=== PATIENT | male | born 1955 | race Caucasian/White ===

== ENCOUNTER 2022-07-15 12:07 | Emergency (ER) | payer OTHER, MEDICARE, SELFPAY ==
[2022-07-15 12:07] VITALS: BP 164/107; PULSE 77; RESP 18; TEMP 36.6; O2SAT 98
--- NOTE | 2022-07-15 12:10 | PC.NURSE ---
Dr. Koehler at bedside to obtain FAST, Fast exam negative per MD
--- NOTE | 2022-07-15 12:11 | ECG_ITS ---
APPROVED REPORT Exam: Resting ECG HR:81 bpm ECG Measurements Heart Rate 81 AXES OR 175 P 57 QRSd 101 QRS 14 QT 369 T -11 QTc 406 Conclusion SINUS RHYTHM WITH OCCASIONAL VENTRICULAR PREMATURE COMPLEXES MINIMAL VOLTAGE CRITERIA FOR LVH, CONSIDER NORMAL VARIANT [MEETS CRITERIA IN ONE OF: R(aVL), S(V1), R(V5), R(V5/V6)+S(V1)] INFERIOR MYOCARDIAL INFARCTION , OF INDETERMINATE AGE [40+ ms Q WAVE AND/OR ST/T ABNORMALITY IN II/aVF] ABNORMAL ECG UNCONFIRMED REPORT Electronically signed by : Travis Luu MD 07/17/2022 14:25:29
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
--- NOTE | 2022-07-15 12:20 | PC.NURSE ---
MD notified of pt's contrast allergy, pt states that he doesn't take contrast d/t his kidneys. MD states contrast okay for scans. pt notified and inagreeance.
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
[2022-07-15 12:30] LABS: Basophils % 0.6 % (0.1-2.0); Eosinophils # 0.2 K/mm3 (0.0-0.4); Eosinophils % 2.8 % (0.1-12.0); Hematocrit 42.5 % (42.0-52.0); Lymphocytes % 28.5 % (10-50); Mean Corpuscular Hemoglobin 29.6 pg (27.0-31.2); Mean Corpuscular Volume 89.9 fl (80-94); Mean Platelet Volume 9.1 fl (7.4-10.4); Monocytes # 0.5 K/mm3 (0.1-1.0); Neutrophils # 4.2 K/mm3 (1.8-7.8); Neutrophils % 61.1 % (37.0-80.0); Platelet Count 168 K/mm3 (142-424); Red Blood Count 4.73 M/mm3 (4.60-6.20); White Blood Count 6.9 K/mm3 (4.8-10.8)
[2022-07-15 12:42] LABS: Chloride 110 mmol/L (98-107); Sodium 139 mmol/L (136-145)
--- NOTE | 2022-07-15 12:43 | PC.NURSE ---
pt's pants, wallet, badge, shoes given to .
[2022-07-15 12:45] LABS: Alanine Aminotransferase 24 U/L (12-78); Albumin Level 3.9 g/dl (3.5-5.0); Albumin/Globulin Ratio 1.3 (1.1-1.8); Alkaline Phosphatase 60 U/L (38-126); Aspartate Amino Transferase 35 U/L (17-59); Bilirubin,Total 0.4 mg/dl (0.2-1.3); Blood Urea Nitrogen 23 mg/dl (9-20); Calcium 8.3 mg/dl (8.4-10.2); Carbon Dioxide 25 mmol/L (22.0-30.0); Creatinine Clearance Estimated 80 mL/min (50-200); Estimated Glomerular Filt Rate 47 ml/min (>60); GFR (African American) 57 ML/MIN (>60); Globulin 2.9 g/dL (1.3-3.2); Glucose 98 mg/dl (74-100); Total Protein,Serum 6.8 g/dl (6.3-8.2)
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
[2022-07-15 13:03] LABS: Troponin I < 0.01 ng/ml (0.00-0.034)
--- NOTE | 2022-07-15 13:20 | PC.NURSE ---
pt c/o right right eye pain, MD aware and eye kit at bedside.
[2022-07-15 13:22] VITALS: BP 157/106; PULSE 80; RESP 18; O2SAT 97
[2022-07-15 14:14] VITALS: BMI 33.9
--- NOTE | 2022-07-15 14:20 | PC.NURSE ---
rounded on patient and updated on POC.
[2022-07-15 14:34] VITALS: BP 156/100; PULSE 73; RESP 18; O2SAT 97
[2022-07-15 15:30] VITALS: BP 157/107; PULSE 87; RESP 18; O2SAT 97
--- NOTE | 2022-07-15 16:16 | XR_ITS ---
PROCEDURE INFORMATION: Exam: XR Right Knee Exam date and time: 07/15/2022 4:39 PM Age: 66 years old Clinical indication: Pain; Knee; Right; Additional info: Pain and swelling TECHNIQUE: Imaging protocol: Radiologic exam of the right knee. Views: 3 views. COMPARISON: No relevant prior studies available. FINDINGS: Bones/joints: No fractures, dislocations, or focal bone lesions. No joint effusion. Joint spaces are well preserved. Soft tissues: Prepatellar soft tissue swelling. No soft tissue gas or radiopaque foreign bodies. IMPRESSION: 1. Prepatellar soft tissue swelling about the right knee. 2. No fractures or dislocations in the right knee.
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
[2022-07-15 17:11] LABS: Troponin I < 0.01 ng/ml (0.00-0.034)
[2022-07-15 17:41] VITALS: BP 150/101; PULSE 82; RESP 18; TEMP 36.7; O2SAT 97
== END 2022-07-15 17:45 | disposition home or self-care (01) ==
PROVIDERS: Emergency Provider Emergency Medicine; PCP Family Medicine
DX: R51.9 Headache, unspecified (principal); S05.01XA Injury of conjunctiva and corneal abrasion without foreign body, right eye, initial encounter; V73.5XXA Driver of bus injured in collision with car, pick-up truck or van in traffic accident, initial encounter; Z79.01 Long term (current) use of anticoagulants
CPT/HCPCS: 36415; 70450; 71045; 71275; 72125; 72128; 72131; 72170; 73562; 74174; 80053; 84484; 85025; 93005; 96360; 96374; 99285; J2405; Q9967

== ENCOUNTER 2024-03-11 11:04 | Emergency (ER) | payer MEDICARE, OTHER, SELFPAY ==
--- NOTE | 2024-03-11 11:09 | XR_ITS ---
PROCEDURE INFORMATION: Exam: XR Left Foot Exam date and time: 03/11/2024 11:12 AM Age: 68 years old Clinical indication: Pain; Foot; Left TECHNIQUE: Imaging protocol: Radiologic exam of the left foot. Views: 3 or more views. COMPARISON: CR XR FOOT LT MIN 3V 03/11/2024 11:12 AM FINDINGS: Bones/joints: Mild-moderate degenerative changes 1st MTP joint with joint space narrowing and subchondral sclerosis. Remaining joint surfaces fairly well preserved. There are 2 threaded screws placed through the medial malleolus. No evidence of underlying fracture or malalignment. Soft tissues: Normal. IMPRESSION: Degenerative changes 1st MTP joint. No acute bony abnormalities.
--- NOTE | 2024-03-11 11:09 | XR_ITS ---
PROCEDURE INFORMATION: Exam: XR Left Ankle Exam date and time: 03/11/2024 11:12 AM Age: 68 years old Clinical indication: Ankle; Left; Prior surgery; Surgery date: 6+ months; Surgery type: Screws placed 30 years ago; Patient HX: States pain, difficulty walking TECHNIQUE: Imaging protocol: Radiologic exam of the left ankle. Views: 3 or more views. COMPARISON: CR XR FOOT LT MIN 3V 03/11/2024 11:12 AM FINDINGS: Bones/joints: Internally fixed healed fracture medial malleolus stabilized by 2 threaded screws. Degenerative changes along the inferior medial aspect of the tibiotalar joint with joint space narrowing and subchondral sclerosis. There are 2 or 3 small circumscribed bony densities adjacent to the inferior margin medial malleolus that may be related to old injury or represent a incidental accessory ossicles. Tiny bone spur arising from the plantar surface of the calcaneus. Remainder of the osseous structures are unremarkable. No acute fracture or malalignment. Soft tissues: Unremarkable. IMPRESSION: No acute bony abnormalities.
--- NOTE | 2024-03-11 12:11 | ED_ITS ---
Discharge Plan Disposition Patient Disposition: Home, Self-Care Condition: Good Prescriptions Prescriptions: No Action atorvastatin 20 mg Tablet 20 mg PO HS amlodipine 5 mg Tablet 5 mg PO DAILY cholecalciferol (vitamin D3) 25 mcg (1,000 unit) Tablet,Chewable 25 mcg PO DAILY allopurinol 100 MG tablet 100 mg PO DAILY terazosin 2 MG capsule 2 mg PO BID oxybutynin chloride 5 MG tablet extended release 24 hr 5 mg PO DAILY pravastatin 20 MG tablet 20 mg PO HS lisinopril 40 MG tablet 40 mg PO DAILY fluoxetine 20 MG capsule 20 mg PO DAILY finasteride 5 MG tablet 5 mg PO DAILY omeprazole magnesium 20 MG tablet,delayed release (DR/EC) 20 mg PO DAILY melatonin 5 MG capsule 5 mg PO HS apixaban 2.5 MG tablet 2.5 mg PO BID Referrals Follow up/Referrals: Janet Joaquin [Primary Care Provider] - See instructions Sydnee Vasquez DPM [Staff Physician] - See instructions Activity Restrictions/Add. Instructions Additional Instructions/Restrictions: Rest the extremity, Elevate the extremity as tolerated while you are resting. Take the medication as directed. Follow up with Dr. Vasquez (podiatry). I put in a referral but you need to call her office and schedule an appointment. Follow up with your regular doctor. GO TO THE ER FOR ANY WORSENING SYMPTOMS Clinical Impressions Clinical Impression: Left ankle pain, Personal history of gout Instructions Patient Instructions: DI for Gout, Methylprednisolone Print Language Print Language: Persian Discharge ED Provider: Josse Vizcarra [facility] General Stated complaint: left ankle pain, puffy Time Seen by Provider: 03/11/24 12:11 Related Data Home Medications ?Medication ?Instructions ?Recorded ?Confirmed allopurinol 100 mg tablet 100 mg PO DAILY gout 11/03/21 03/14/24 apixaban 2.5 mg tablet 2.5 mg PO BID Blood thinner 11/03/21 03/14/24 finasteride 5 mg tablet 5 mg PO DAILY prostate 11/03/21 03/14/24 fluoxetine 20 mg capsule 20 mg PO DAILY Depression 11/03/21 03/14/24 lisinopril 40 mg tablet 40 mg PO DAILY High blood pressure 11/03/21 03/14/24 melatonin 5 mg capsule 5 mg PO HS sleep 11/03/21 03/14/24 omeprazole magnesium 20 mg 20 mg PO DAILY GERD 11/03/21 03/14/24 tablet,delayed release oxybutynin chloride 5 mg 5 mg PO DAILY bladder 11/03/21 03/14/24 tablet,extended release 24 hr pravastatin 20 mg tablet 20 mg PO HS High cholesterol 11/03/21 03/14/24 terazosin 2 mg capsule 2 mg PO BID High blood pressure 11/03/21 03/14/24 amlodipine 5 mg tablet 5 mg PO DAILY 03/11/24 03/14/24 atorvastatin 20 mg tablet 20 mg PO HS 03/11/24 03/14/24 cholecalciferol (vitamin D3) 25 25 mcg PO DAILY 03/11/24 03/14/24 mcg (1,000 unit) chewable tablet Allergies Allergy/AdvReac Type Severity Reaction Status Date / Time Iodinated Contrast Media Allergy Verified 03/13/24 09:45 [facility] Disclaimer: The information contained in this section may have been updated after the patient was seen, as this information can be updated by other users. Medical History Kidney stone DVT (deep venous thrombosis) Tonsillitis Detached retina Osteopenia BPH (benign prostatic hyperplasia) Depression Duodenal ulcer Diverticulosis Chronic kidney disease, stage 3 Gout Depression HLD (hyperlipidemia) HTN (hypertension), benign GERD (gastroesophageal reflux disease) Surgical History Hx of tonsillectomy Family History Other Alcoholism Cancer Coronary artery disease Social History Smoking Status: Never smoker alcohol intake: never current occupational status: employed and unemployed Travel in the last 8 weeks: None Have you lived/traveled outside US in past 30 days?: No Contact w/someone who lives/traveled outside US past 30 days?: No Exposure to someone with infectious disease in past 14 days?: No Do you have a fever (greater than 100.4 F or 38 C)?: No Have you tested positive for COVID-19: No Exposed to someone with COVID-19 in past 14 days?: No Do you have a sore throat?: No Do you have a cough?: No Do you have any weakness?: Yes Do you have any diarrhea?: No Are you experiencing any unusual bleeding?: No Do you have any muscle aches/pain?: No Do you have any abdominal pain?: No Are you experiencing loss of taste or smell?: No ROS Obtained: Yes All systems reviewed & no additional complaints except as documented Constitutional Constitutional: Denies chills and Denies fever(s) Eyes Eyes: Denies eye discharge ENT Ears, Nose, Mouth, and Throat: Denies dizziness, Denies otalgia and Denies sore throat Cardiovascular Cardiovascular: Denies chest pain Respiratory Respiratory: Denies shortness of breath, Denies chest congestion, Denies cough, Denies stridor and Denies wheezing Gastrointestinal Gastrointestingal: Denies nausea or vomiting Musculoskeletal Musculoskeletal: Reports as per HPI Integumentary/Breasts Skin/Breast: Denies rash Neurologic Neurologic: Denies dizziness and Denies paresthesias Allergic/Immunologic Allergic/Immunologic: Denies wheezing Physical Exam General General appearance: alert and in no apparent distress Head Head exam: atraumatic, normocephalic and normal inspection Eye Eye exam: Present normal appearance, PERRL and EOMI ENT ENT exam: Present normal exam, normal oropharynx, mucous membranes moist, TM's normal bilaterally and normal external ear exam Neck Neck exam: Present normal inspection, full ROM and trachea midline; Absent meningismus or lymphadenopathy Chest Chest inspection: Present normal inspection and symmetric chest wall rise; Absent tenderness Respiratory Respiratory exam: Present normal lung sounds bilaterally; Absent respiratory distress Cardiovascular Cardiovascular exam: Present regular rate and normal rhythm; Absent JVD Abdominal Exam Abdominal exam: Present soft and normal bowel sounds; Absent distention, tenderness or guarding Extremities Exam Extremities exam: Present normal capillary refill; Absent calf tenderness Expanded Lower Extremity Exam Left: Knee exam: Present normal inspection, full ROM and knee extension intact; Absent tenderness Lower leg exam: Present normal inspection, full ROM and Achilles tendon intact; Absent tenderness or Homans' sign Ankle exam: Present normal inspection and full ROM; Absent tenderness, tenderness over talofibular lig or anterior draw sign Foot/toe exam: Present full ROM and tenderness; Absent swelling, abrasion, laceration, ecchymosis, deformity, crepitus, dislocation, erythema, amputation, puncture wound, foreign body, calcaneal tenderness, tenderness at base of 5th metatarsal, nail avulsion or subungual hematoma Neurovascular/Tendon exam: Present normal capillary refill, normal 2-point discrimination and normal fine/light touch; Absent pulse deficit, motor deficit, sensory deficit, tendon deficit, extremity cold to touch or pallor Gait: observed and limited by pain Back Exam Back exam: Present normal inspection; Absent tenderness Neurological Exam Neurological exam: Present alert and oriented X3 Psychiatric Psychiatric exam: Present normal affect and normal mood Skin Skin exam: Present warm, dry, intact and normal color Lymphatic Lymphatic Findings: no adenopathy Medical Decision Making Medical Records Medical records reviewed: No I reviewed the patient's medical records. Screening: Per USPSTF and CDC recommendations, given the prevalence of disease in our region, it is our hospital?s policy to screen for HIV and viral Hepatitis for all patients aged 18 and over and those with ongoing risk factors. Santos Inquiry Pt receiving controlled substance: No Orders (Tests/Meds): ORDERS Category Date Time Status Ankle XR - Left minimum 3 Views [XR ankle LT min 3V] Exams 03/11/24 11:09 Taken Stat XR foot LT min 3V Stat Exams 03/11/24 11:09 Taken
[2024-03-11 12:22] VITALS: BP 125/81; PULSE 75; RESP 20; TEMP 36.8; O2SAT 97; BMI 33.9
[2024-03-11 13:11] VITALS: BP 125/81; PULSE 75; RESP 20; TEMP 36.8
== END 2024-03-11 13:19 | disposition home or self-care (01) ==
PROVIDERS: Emergency Provider Nurse Practitioner Family; PCP Family Medicine
DX: M10.9 Gout, unspecified (principal); M25.572 Pain in left ankle and joints of left foot; M79.672 Pain in left foot
CPT/HCPCS: 73610; 73630; 99212; G0381

== ENCOUNTER 2024-03-14 09:47 | Observation (INO) | payer MEDICARE, OTHER, SELFPAY ==
[2024-03-14] VITALS (11 sets, daily range): BP systolic 90–125; BP diastolic 56–98; PULSE 64–94; RESP 14–18; TEMP 36.3–36.6; O2SAT 92–98; BMI 33.2
--- NOTE | 2024-03-14 09:54 | ECG_ITS ---
APPROVED REPORT Exam: Resting ECG HR:96 bpm ECG Measurements Heart Rate 96 AXES CA 164 P 56 QRSd 139 QRS 56 QT 380 T 40 QTc 434 Conclusion SINUS RHYTHM RIGHT BUNDLE BRANCH BLOCK [120+ ms QRS DURATION, UPRIGHT V1, 40+ ms S IN I/aVL/V4/V5/V6] ABNORMAL ECG Electronically signed by : CARMEL REGALADO, 03/14/2024 15:31:38
[2024-03-14 10:24] LABS: Lactate Venous 1.8 mmol/L (0.4-2.0); VBG Base Excess -7.6 mmol/L (-2.4-2.3); VBG HCO3 19.3 mmol/L (23-30); VBG Oxygen Saturation 71.8 % (50-70); VBG PCO2 42.8 mmol/L (35-51); VBG PH 7.27 mmol/L (7.31-7.41); VBG PO2 37.9 mmol/L (28-40); VBG Total CO2 20.6 mmol/L (23-27)
[2024-03-14 10:26] LABS: Basophils % 0.6 % (0.1-2.0); Eosinophils # 0.1 K/mm3 (0.0-0.4); Hematocrit 45.3 % (42.0-52.0); Hemoglobin 14.8 g/dL (14.1-18.0); Lymphocytes # 1.3 K/mm3 (0.7-4.5); Lymphocytes % 19.7 % (10-50); Mean Corpuscular HGB Conc 32.7 g/dL (31.8-35.4); Mean Corpuscular Volume 94.7 fl (80-94); Mean Platelet Volume 8.6 fl (7.4-10.4); Monocytes # 0.5 K/mm3 (0.1-1.0); Monocytes % 8.4 % (1.7-9.3); Neutrophils # 4.4 K/mm3 (1.8-7.8); Neutrophils % 69.3 % (37.0-80.0); Platelet Count 216 K/mm3 (142-424); Red Blood Count 4.78 M/mm3 (4.60-6.20); Red Cell Distribution Width 13.8 % (11.5-17.5); White Blood Count 6.4 K/mm3 (4.8-10.8)
[2024-03-14 10:47] LABS: Alanine Aminotransferase 25 U/L (12-78); Albumin Level 3.9 g/dl (3.5-5.0); Albumin/Globulin Ratio 1.4 (1.1-1.8); Alkaline Phosphatase 68 U/L (38-126); Anion Gap 11.8 mEq/L (5-15); Aspartate Amino Transferase 36 U/L (17-59); Bilirubin,Total 0.7 mg/dl (0.2-1.3); Blood Urea Nitrogen 40 mg/dl (9-20); Calcium 8.2 mg/dl (8.4-10.2); Carbon Dioxide 20 mmol/L (22.0-30.0); Chloride 112 mmol/L (98-107); Creatinine Clearance Estimated 48 mL/min (50-200); Estimated Glomerular Filt Rate 27 ml/min (>60); GFR (African American) 33 ML/MIN (>60); Globulin 2.8 g/dL (1.3-3.2); Glucose 98 mg/dl (74-100); Lipase 72 U/L (23-300); Magnesium 1.9 mg/dl (1.6-2.3); Phosphorous 2.7 mg/dl (2.5-4.5); Potassium 3.8 mmoL/L (3.5-5.1); Sodium 140 mmol/L (136-145); Total Protein,Serum 6.7 g/dl (6.3-8.2)
[2024-03-14] MEDS: 0.9 % SODIUM CHLORIDE 1000ML 1,000 ML 999 ML IV ×2 (10:52→11:27)
[2024-03-14 11:07] LABS: T4 (Thyroxine) 7.5 ug/dl (5.53-11.0)
[2024-03-14 11:19] LABS: Thyroid Stimulating Hormone 1.84 uIU/mL (0.465-4.68)
[2024-03-14 11:28] LABS: Troponin I < 0.01 ng/ml (0.00-0.034)
[2024-03-14 11:55] LABS: HIV Combo NEGATIVE (Negative)
--- NOTE | 2024-03-14 12:02 | ED_ITS ---
Discharge Plan Disposition Patient Disposition: Admitted Condition: Good Clinical Impressions Clinical Impression: ANTONY (acute kidney injury), Diarrhea, Hypocalcemia, Orthostatic hypotension, Metabolic acidosis Discharge ED Provider: Keisha Manzanares General Adult HPI General Chief complaint: Syncope Stated complaint: low b/p, syncope, diarrhea x2 Time Seen by Provider: 03/14/24 10:00 Mode of Arrival: Ambulatory Source of Information: Patient Limitations: No Limitations Description of Symptoms (Recalled from ER Triage Doc. by RN): pt c/o diarrhea x2d. pt states last night he had a near syncopal episode and layed down on the floor. pt reports he did not fully lose consciousness. He states a few minutes post the episode his BP was 74/56. pt denies abd pain, chest pain, SOA or urinary symptoms. History of Present Illness HPI narrative: This patient is a 68-year-old male with a history of GERD, CKD, hypertension, hyperlipidemia, BPH, prior DVT on Eliquis presenting to the emergency department for evaluation with concern for lightheadedness and diarrhea. Patient notes that he started having diarrhea yesterday with multiple bouts of profuse watery diarrhea. No hematochezia or melena. He notes that he also felt nauseated but no vomiting. He notes that he started feeling really lightheaded at home and had to sit down while trying to walk across the house. He felt like he was going to pass out. He took his blood pressure noted that it was very low with systolics in the 70s on multiple rechecks. He did take his blood pressure medication this morning not realizing that his blood pressure was low. He notes that he has unintentionally lost 5 pounds over the last 24 hours, presumably as a result of diarrhea and poor oral intake. No chest pain, shortness of breath, vertigo, abdominal pain, rashes, swelling, or other concerns. Related Data Home Medications ?Medication ?Instructions ?Recorded ?Confirmed allopurinol 100 mg tablet 100 mg PO DAILY gout 11/03/21 03/14/24 apixaban 2.5 mg tablet 2.5 mg PO BID Blood thinner 11/03/21 03/14/24 finasteride 5 mg tablet 5 mg PO DAILY prostate 11/03/21 03/14/24 fluoxetine 20 mg capsule 20 mg PO DAILY Depression 11/03/21 03/14/24 lisinopril 40 mg tablet 40 mg PO DAILY High blood pressure 11/03/21 03/14/24 melatonin 5 mg capsule 5 mg PO HS sleep 11/03/21 03/14/24 omeprazole magnesium 20 mg 20 mg PO DAILY GERD 11/03/21 03/14/24 tablet,delayed release oxybutynin chloride 5 mg 5 mg PO DAILY bladder 11/03/21 03/14/24 tablet,extended release 24 hr pravastatin 20 mg tablet 20 mg PO HS High cholesterol 11/03/21 03/14/24 terazosin 2 mg capsule 2 mg PO BID High blood pressure 11/03/21 03/14/24 amlodipine 5 mg tablet 5 mg PO DAILY 03/11/24 03/14/24 atorvastatin 20 mg tablet 20 mg PO HS 03/11/24 03/14/24 cholecalciferol (vitamin D3) 25 25 mcg PO DAILY 03/11/24 03/14/24 mcg (1,000 unit) chewable tablet Allergies Allergy/AdvReac Type Severity Reaction Status Date / Time Iodinated Contrast Media Allergy Verified 03/13/24 09:45 [facility] Disclaimer: The information contained in this section may have been updated after the patient was seen, as this information can be updated by other users. Medical History Kidney stone DVT (deep venous thrombosis) Tonsillitis Detached retina Osteopenia BPH (benign prostatic hyperplasia) Depression Duodenal ulcer Diverticulosis Chronic kidney disease, stage 3 Gout Depression HLD (hyperlipidemia) HTN (hypertension), benign GERD (gastroesophageal reflux disease) Surgical History Hx of tonsillectomy Family History Other Alcoholism Cancer Coronary artery disease Social History Smoking Status: Never smoker alcohol intake: never current occupational status: employed and unemployed Travel in the last 8 weeks: None Have you lived/traveled outside US in past 30 days?: No Contact w/someone who lives/traveled outside US past 30 days?: No Exposure to someone with infectious disease in past 14 days?: No Do you have a fever (greater than 100.4 F or 38 C)?: No Have you tested positive for COVID-19: No Exposed to someone with COVID-19 in past 14 days?: No Do you have a sore throat?: No Do you have a cough?: No Do you have any weakness?: No Do you have any diarrhea?: No Are you experiencing any unusual bleeding?: No Do you have any muscle aches/pain?: No Do you have any abdominal pain?: No Are you experiencing loss of taste or smell?: No Other Medical History Have you received the Flu Vaccine for this season: Yes Have you received the Pneumonia Vaccine: Yes ROS Obtained: Yes All systems reviewed & no additional complaints except as documented Physical Exam General General appearance: alert and in no apparent distress Head Head exam: atraumatic and normocephalic Eye Eye exam: Present normal appearance, PERRL and EOMI ENT ENT exam: Present normal oropharynx, mucous membranes dry and normal external ear exam Neck Neck exam: Present normal inspection, full ROM and trachea midline; Absent tenderness Chest Chest inspection: Present normal inspection and symmetric chest wall rise; Absent tenderness Respiratory Respiratory exam: Present normal lung sounds bilaterally; Absent respiratory distress, wheezes, stridor or accessory muscle use Cardiovascular Cardiovascular exam: Present regular rate and normal rhythm Abdominal Exam Abdominal exam: Present soft; Absent distention, tenderness or guarding Extremities Exam Extremities exam: Present normal inspection, full ROM and normal capillary refill; Absent tenderness or edema Back Exam Back exam: Present normal inspection and full ROM; Absent tenderness Neurological Exam Neurological exam: Present alert, oriented X3, CN II-XII intact and normal gait; Absent motor sensory deficit Psychiatric Psychiatric exam: Present normal affect and normal mood Skin Skin exam: Present warm and dry Medical Decision Making Medical Records Medical records reviewed: Yes I reviewed the patient's medical records. Screening: Per USPSTF and CDC recommendations, given the prevalence of disease in our region, it is our hospital?s policy to screen for HIV and viral Hepatitis for all patients aged 18 and over and those with ongoing risk factors. Santos Inquiry Pt receiving controlled substance: No Vital Signs: 03/14/24 09:59 03/14/24 11:30 03/14/24 12:00 Temperature 97.6 F Temperature Source Oral Pulse Rate 84 75 Pulse Rate [Orthostatic Lying Left Radial] Pulse Rate [Orthostatic Sitting Left Radial] Pulse Rate [Orthostatic Standing Left Radial] Pulse Rate [Right] 94 H Respiratory Rate 14 Blood Pressure 100/62 L 97/67 L Blood Pressure [Orthostatic Lying Right Arm] Blood Pressure [Orthostatic Sitting Right Arm] Blood Pressure [Orthostatic Standing Right Arm] Blood Pressure [Right Arm] 113/63 Blood Pressure Mean [Right Arm] 79 Blood Pressure Source [Right Arm] Automatic Cuff Blood Pressure Position [Right Arm] Sitting 02 Sat by Pulse Oximetry 96 96 97 Oxygen Delivery Method Room Air 03/14/24 12:07 03/14/24 12:12 03/14/24 12:13 Temperature Temperature Source Pulse Rate 65 80 72 Pulse Rate [Orthostatic Lying Left Radial] Pulse Rate [Orthostatic Sitting Left Radial] Pulse Rate [Orthostatic Standing Left Radial] Pulse Rate [Right] Respiratory Rate Blood Pressure 105/66 L 102/66 L 106/70 L Blood Pressure [Orthostatic Lying Right Arm] Blood Pressure [Orthostatic Sitting Right Arm] Blood Pressure [Orthostatic Standing Right Arm] Blood Pressure [Right Arm] Blood Pressure Mean [Right Arm] Blood Pressure Source [Right Arm] Blood Pressure Position [Right Arm] 02 Sat by Pulse Oximetry 92 L 97 95 Oxygen Delivery Method Room Air Room Air Room Air 03/14/24 12:14 03/14/24 12:17 Temperature Temperature Source Pulse Rate 73 Pulse Rate [Orthostatic Lying Left Radial] 82 Pulse Rate [Orthostatic Sitting Left Radial] 65 Pulse Rate [Orthostatic Standing Left Radial] 91 H Pulse Rate [Right] Respiratory Rate Blood Pressure 90/56 L Blood Pressure [Orthostatic Lying Right Arm] 102/66 L Blood Pressure [Orthostatic Sitting Right Arm] 106/70 L Blood Pressure [Orthostatic Standing Right Arm] 90/56 L Blood Pressure [Right Arm] Blood Pressure Mean [Right Arm] Blood Pressure Source [Right Arm] Blood Pressure Position [Right Arm] 02 Sat by Pulse Oximetry 96 Oxygen Delivery Method Room Air Lab Data Lab results reviewed: Yes I reviewed the patient's lab results. Lab Results 03/14/24 10:06: WBC 6.4, RBC 4.78, Hgb 14.8, Hct 45.3, MCV 94.7 H, MCH 31.0, MCHC 32.7, RDW 13.8, Plt Count 216, MPV 8.6, Neut % (Auto) 69.3, Lymph % (Auto) 19.7, [place] % (Auto) 8.4, Eos % (Auto) 2.0, Baso % (Auto) 0.6, Neut # (Auto) 4.4, Lymph # (Auto) 1.3, [place] # (Auto) 0.5, Eos # (Auto) 0.1, Baso # (Auto) 0.0, Sodium 140, Potassium 3.8, Chloride 112 H, Carbon Dioxide 20 L, Anion Gap 11.8, BUN 40 H, Creatinine 2.40 H, Estimated Creat Clear 48, Estimated GFR 27 L, Est GFR ( Amer) 33 L, Glucose 98, Calcium 8.2 L, Phosphorus 2.7, Magnesium 1.9, Total Bilirubin 0.7, AST 36, ALT 25, Alkaline Phosphatase 68, Troponin I < 0.01, Total Protein 6.7, Albumin 3.9, Globulin 2.8, Albumin/Globulin Ratio 1.4, Lipase 72, TSH 1.84, Thyroxine (T4) 7.5, HIV Ag/Ab Combo Qual Negative 03/14/24 10:24: VBG pH 7.27 L, VBG pCO2 42.8, VBG pO2 37.9, VBG HCO3 19.3 L, VBG Total CO2 20.6 L, VBG O2 Saturation 71.8 H, VBG Base Excess -7.6 L, VBG Lactic Acid 1.8 03/14/24 12:21: SARS-CoV-2 (PCR) Not detected, Influenza A Untype (PCR) Not detected, Influenza Type B (PCR) Not detected 03/14/24 10:06 03/14/24 10:06 Orders (Tests/Meds): ED MEDICATIONS Discontinued Medications Generic Name Dose Route Start Last Admin Trade Name Andresq PRN Reason Stop Dose Admin Sodium Chloride 1,000 mls @ 999 mls/hr 03/14/24 10:14 03/14/24 10:52 Sod Chlor 0.9% 1000ml Bag IV 03/14/24 11:14 999 mls/hr .Q1H1M ONE Administration Sodium Chloride 1,000 mls @ 999 mls/hr 03/14/24 11:00 03/14/24 11:27 Sod Chlor 0.9% 1000ml Bag IV 03/14/24 12:00 999 mls/hr .Q1H1M ONE Administration Calcium Gluconate/Sodium Chloride 1 gm in 50 mls @ 50 mls/hr 03/14/24 12:07 03/14/24 12:15 Calcium Gluconate 1,000mg/50ml Nacl Premix IV 03/14/24 13:06 50 mls/hr ONCE ONE Administration ORDERS Category Date Time Status CBC w/Auto Diff [Complete Blood Count Auto Diff] Stat Lab 03/14/24 10:06 Completed CMP [Comprehensive Metabolic Panel] Stat Lab 03/14/24 10:06 Completed Complete Blood Count Auto Diff AMLAB Lab 03/15/24 06:00 Ordered Comprehensive Metabolic Panel AMLAB Lab 03/15/24 06:00 Ordered Diarrhea 23 Panel, PCR Stat Lab 03/14/24 10:13 Ordered HIV Combo Stat Lab 03/14/24 10:06 Completed Hep C Ab with Reflex to RNA Stat Lab 03/14/24 10:06 Received Lactic Acid Stat Lab 03/14/24 13:45 Completed Lipase Stat Lab 03/14/24 10:06 Completed MAG [Magnesium] Stat Lab 03/14/24 10:06 Completed Magnesium AMLAB Lab 03/15/24 06:00 Ordered PHOS [Phosphorous] Stat Lab 03/14/24 10:06 Completed Rapid PCR Covid and Flu A/B Routine Lab 03/14/24 12:21 Completed T4 (Thyroxine) Stat Lab 03/14/24 10:06 Completed TSH [Thyroid Stimulating Hormone] Stat Lab 03/14/24 10:06 Completed Trop I [Troponin I] Stat Lab 03/14/24 10:06 Completed Troponin I Q3H Lab 03/14/24 13:45 Completed Troponin I Q3H Lab 03/14/24 16:15 Ordered UA [Urinalysis and Microscopic] Stat Lab 03/14/24 10:13 Ordered VBG [Venous Blood Gas] Stat RT 03/14/24 10:24 Completed CA venous doppler LE RT Stat Y 03/14/24 12:16 Completed ECG Data Tracing #1: I reviewed this ECG and interpreted as documented below: Normal sinus rhythm with a ventricular rate of 96 bpm. Right bundle branch block noted. No acute ST changes concerning for ischemia. ECG initial impression date: 03/14/24 ECG initial impression time: 09:56 Medical Decision Narrative: In summary, this patient is a 68-year-old male presenting to the Emergency Department for evaluation of lightheadedness and low blood pressure at home in the setting of diarrhea. Differential diagnoses considered include but are not limited to infectious gastroenteritis, colitis, dehydration, electrolyte derangements, ANTONY, hypotension. Ruling out the most morbid conditions drove assessment. It should be noted patient's history includes CKD, hypertension, hyperlipidemia which may or may not be at goal therapy. This complicates all aspects of care by increasing patient's risk for morbidity. On exam, the patient is lying in bed in no acute distress. He is alert and neurologically intact. He has reassuring cardiopulmonary and abdominal exams. Blood pressure soft upon arrival with systolic in the 90s at rest. Workup included CBC, CMP, magnesium, phosphorus, VBG, diarrhea panel. He was given a liter bolus of IV fluids. EKG obtained demonstrates normal sinus rhythm with right bundle branch block. No other acute concerns noted on EKG. Labs demonstrated ANTONY with creatinine up to 2.4 from a baseline of around 1.5. He is mildly hypocalcemic. He was given IV calcium replacement as well as a second bolus of IV fluids, as I feel his clinical picture is most consistent with dehydration. I ordered diarrhea panel but he has not yet been able to provide a specimen. On reassessment, the patient is lying in bed in no acute distress. He did have orthostatic hypotension with orthostatic vital signs were obtained and he did become symptomatic with this with presyncope. He started to complain of some posterior calf pain on the right lower extremity, so I did order venous duplex. This concerning for chronic calcified clot but no acute obstructing clot. Patient did have good compressible veins. Patient still not able to provide stool sample here. Ultimately after shared decision make with the patient, I feel he be appropriate for admission for continued management of ANTONY and monitoring of his kidney function. I had an interactive discussion with the hospitalist who admitted the patient in stable condition. Critical Care Critical Care Time Critical Care Time: No
[2024-03-14] MEDS: CALCIUM GLUC IN NACL, ISO-OSM 1 GM/50 ML BAG IV (12:15)
--- NOTE | 2024-03-14 12:16 | CA_ITS ---
FINAL REPORT TECHNIQUE: Compression calix scale and Doppler evaluation CLINICAL HISTORY: Right knee pain, Hx-previous DVT 20 y/ago. On blood thinners due to clotting disorder COMPARISON: None FINDINGS: RIGHT LOWER EXTREMITY VENOUS DOPPLER: The superficial femoral and common femoral veins are unremarkable. There is mural calcification in the popliteal vein, reflective of chronic partial thrombosis. The calf vessels are unremarkable in appearance. All of the vessels including the popliteal vein are compressible and demonstrate flow. IMPRESSION: No evidence of acute deep venous thrombosis of the right lower extremity. Reviewed, Interpreted and Dictated by Ethel Doherty MD Transcribed by Diana Rose Authenticated and [facility]
--- NOTE | 2024-03-14 12:23 | PC.NURSE ---
pt c/o R posterior knee pain wo injury. Dr. Manzanares notified of this and states she will u/s it. Pt removing slacks so that MD can perform u/s. Sheet given to pt to cover with
[2024-03-14 12:28] LABS: Coronavirus 19, PCR Not Detected (NotDetected); Influenza A, PCR Not Detected (NotDetected); Influenza B, PCR Not Detected (NotDetected)
--- NOTE | 2024-03-14 13:15 | PC.NURSE ---
[employer] NOTIFIED OF ADMISSION
--- NOTE | 2024-03-14 13:16 | P.HP_ITS ---
History of Present Illness *Admission Date: 03/14/24 *Reason for visit:: Dizzy, weak, syncope, hypotension *History of present illness: Mr. Salazar is a 68-year-old male with multiple comorbidities including BPH, hypertension, hyperlipidemia, depression, GERD, gout, CKD 3. He presented to the ER after having diarrhea for the past 2 days. Had significant watery diarrhea with no blood. Nausea but no vomiting. Has become dehydrated. Continue to take his blood pressure meds however. This morning noticed that he was dizzy and felt like he was about to pass out but did not lose consciousness. Laid down on the floor and checked his blood pressure and found systolic blood pressures in the 70s to 80s depending on the arm he checked. Came to the ER for further management. Denied having any abdominal pain, chest pain, shortness of breath, peri syncope, change in vision or confusion. On workup in the ER, found to have ANTONY with bump in creatinine to 2.4. Orthostatic hypotension even after fluid resuscitation. Medicine consulted for admission and further management due to his metabolic disturbances and kidney injury. Upon arrival to the floor, blood pressure showing slight improvement. Patient still quite weak. No further diarrhea yet. at bedside helps supplement history. Patient alert and oriented x 4. Afebrile. [facility] Disclaimer: The information contained in this section may have been updated after the patient was seen, as this information can be updated by other users. Medical History (Updated 03/14/24 @ 17:24 by Josse Sears MD) Kidney stone DVT (deep venous thrombosis) Tonsillitis Detached retina Osteopenia BPH (benign prostatic hyperplasia) Depression Duodenal ulcer Diverticulosis Chronic kidney disease, stage 3 Gout Depression HLD (hyperlipidemia) HTN (hypertension), benign GERD (gastroesophageal reflux disease) Surgical History Hx of tonsillectomy Family History Other Alcoholism Cancer Coronary artery disease Social History Smoking Status: Never smoker alcohol intake: never current occupational status: employed and unemployed Travel in the last 8 weeks: None Have you lived/traveled outside [place] in past 30 days?: No Contact w/someone who lives/traveled outside [place] past 30 days?: No Exposure to someone with infectious disease in past 14 days?: No Do you have a fever (greater than 100.4 F or 38 C)?: No Have you tested positive for COVID-19: No Exposed to someone with COVID-19 in past 14 days?: No Do you have a sore throat?: No Do you have a cough?: No Do you have any weakness?: No Do you have any diarrhea?: No Are you experiencing any unusual bleeding?: No Do you have any muscle aches/pain?: No Do you have any abdominal pain?: No Are you experiencing loss of taste or smell?: No Other Medical History Have you received the Flu Vaccine for this season: Yes Have you received the Pneumonia Vaccine: Yes Review of Systems Review of Systems Review of systems (narrative): 14 point review of systems performed, pertinent positives and negatives as per HPI Meds Home Medications and Allergies Home Medications ?Medication ?Instructions ?Recorded ?Confirmed ?Type allopurinol 100 mg tablet 100 mg PO DAILY gout 11/03/21 03/14/24 History apixaban 2.5 mg tablet 2.5 mg PO BID Blood thinner 11/03/21 03/14/24 History finasteride 5 mg tablet 5 mg PO DAILY prostate 11/03/21 03/14/24 History fluoxetine 20 mg capsule 20 mg PO DAILY Depression 11/03/21 03/14/24 History lisinopril 40 mg tablet 40 mg PO DAILY High blood pressure 11/03/21 03/14/24 History melatonin 5 mg capsule 5 mg PO HS sleep 11/03/21 03/14/24 History omeprazole magnesium 20 mg 20 mg PO DAILY GERD 11/03/21 03/14/24 History tablet,delayed release oxybutynin chloride 5 mg 5 mg PO DAILY bladder 11/03/21 03/14/24 History tablet,extended release 24 hr pravastatin 20 mg tablet 20 mg PO HS High cholesterol 11/03/21 03/14/24 History terazosin 2 mg capsule 2 mg PO BID High blood pressure 11/03/21 03/14/24 History amlodipine 5 mg tablet 5 mg PO DAILY 03/11/24 03/14/24 History atorvastatin 20 mg tablet 20 mg PO HS 03/11/24 03/14/24 History cholecalciferol (vitamin D3) 25 25 mcg PO DAILY 03/11/24 03/14/24 History mcg (1,000 unit) chewable tablet New Prescriptions to Start Prescriptions: Allergies Allergy/AdvReac Type Severity Reaction Status Date / Time Iodinated Contrast Media Allergy Verified 03/13/24 09:45 Exam Data for Last 24 hours Vital signs and Labs for Last 24 Hours: Temp Pulse Resp BP Pulse Ox O2 Del Method 97.6 F 82 14 102/66 L 97 Room Air 03/14/24 09:59 03/14/24 12:17 03/14/24 09:59 03/14/24 12:17 03/14/24 12:00 03/14/24 09:59 Laboratory Results - last 24 hr 03/14/24 10:06: WBC 6.4, RBC 4.78, Hgb 14.8, Hct 45.3, MCV 94.7 H, MCH 31.0, MCHC 32.7, RDW 13.8, Plt Count 216, MPV 8.6, Neut % (Auto) 69.3, Lymph % (Auto) 19.7, Crowley % (Auto) 8.4, Eos % (Auto) 2.0, Baso % (Auto) 0.6, Neut # (Auto) 4.4, Lymph # (Auto) 1.3, Crowley # (Auto) 0.5, Eos # (Auto) 0.1, Baso # (Auto) 0.0, Sodium 140, Potassium 3.8, Chloride 112 H, Carbon Dioxide 20 L, Anion Gap 11.8, BUN 40 H, Creatinine 2.40 H, Estimated Creat Clear 48, Estimated GFR 27 L, Est GFR ( Amer) 33 L, Glucose 98, Calcium 8.2 L, Phosphorus 2.7, Magnesium 1.9, Total Bilirubin 0.7, AST 36, ALT 25, Alkaline Phosphatase 68, Troponin I < 0.01, Total Protein 6.7, Albumin 3.9, Globulin 2.8, Albumin/Globulin Ratio 1.4, Lipase 72, TSH 1.84, Thyroxine (T4) 7.5, HIV Ag/Ab Combo Qual Negative 03/14/24 10:24: VBG pH 7.27 L, VBG pCO2 42.8, VBG pO2 37.9, VBG HCO3 19.3 L, VBG Total CO2 20.6 L, VBG O2 Saturation 71.8 H, VBG Base Excess -7.6 L, VBG Lactic Acid 1.8 03/14/24 12:21: SARS-CoV-2 (PCR) Not detected, Influenza A Untype (PCR) Not detected, Influenza Type B (PCR) Not detected I & O for Last 24 hours: Intake & Output 03/11/24 03/12/24 03/13/24 03/14/24 23:59 23:59 23:59 23:59 Weight 111.13 kg Constitutional Constitutional: no acute distress, obese and cooperative *Routine HEENT Exam Head: Present normocephalic Eye: Present EOMI and PERRL ENT: Present mucous membranes moist *Routine Neck Exam Neck: Present supple; Absent lymphadenopathy *Routine Respiratory Exam Respiratory: Present CTA bilaterally; Absent rhonchi, wheezes or crackles *Routine Cardiovascular Exam Cardiovascular: Present RRR *Routine Abdominal Exam Abdominal: Present soft and normoactive bowel sounds; Absent tenderness *Routine Rectal Exam Rectal:: deferred *Routine Genitalia Exam Genitalia:: deferred *Routine Extremities Exam Extremities: Absent cyanosis, clubbing or edema *Routine Skin Exam Skin: Present warm; Absent rash *Routine Neurological Exam Neurological: Present alert, oriented X3 and moving all extremities; Absent altered mental status Assessment and Plan *Assessment and plan (1) ANTONY (acute kidney injury): Status: Acute Category: Medical Code(s): N17.9 - Acute kidney failure, unspecified (2) Orthostatic hypotension: Status: Acute Category: Medical Code(s): I95.1 - Orthostatic hypotension (3) Diarrhea: Status: Acute Category: Medical Code(s): R19.7 - Diarrhea, unspecified (4) Hypocalcemia: Status: Acute Category: Medical Code(s): E83.51 - Hypocalcemia (5) Metabolic acidosis: Status: Acute Category: Medical Code(s): E87.20 - Acidosis, unspecified (6) GERD (gastroesophageal reflux disease): Status: Chronic Qualifiers: Esophagitis presence: without esophagitis Qualified Code(s): K21.9 - Gastro-esophageal reflux disease without esophagitis Category: Medical Code(s): K21.9 - Gastro-esophageal reflux disease without esophagitis (7) HTN (hypertension), benign: Status: Chronic Category: Medical Code(s): I10 - Essential (primary) hypertension (8) Chronic kidney disease, stage 3: Status: Chronic Category: Medical Code(s): N18.30 - Chronic kidney disease, stage 3 unspecified (9) BPH (benign prostatic hyperplasia): Status: Chronic Category: Medical Code(s): N40.0 - Benign prostatic hyperplasia without lower urinary tract symptoms (10) Depression: Status: Chronic Category: Medical Code(s): F32.A - Depression, unspecified (11) DVT (deep venous thrombosis): Status: Chronic Category: Medical Code(s): I82.409 - Acute embolism and thrombosis of unspecified deep veins of unspecified lower extremity Plan 68-year-old male who presented with diarrhea, dehydration, hypotension. Found to have ANTONY and metabolic derangements along with orthostatic hypotension even after fluid resuscitation. Discussed case with ER physician who request admission for continued treatment and serial labs. I agreed to admit for further management. Problems addressed as follows: Dehydration ANTONY on CKD 3 Diarrhea/gastroenteritis -Resuscitated with 2 L IV fluids in the ER. Tolerating p.o. liquids. -Kidney injury with BUN 40, creatinine 2.4 on arrival to the ER. Significantly above baseline: BUN 23, creatinine 1.5. -Metabolic derangements with potassium 3.8, calcium 8.2, mild metabolic acidosis with bicarb of 20. Repeat BMP ordered for the afternoon and repeat CBC, CMP, magnesium ordered for the morning. - As he is tolerating p.o. liquids, will hold on further IV fluids for the time being -Holding blood pressure meds in the setting of hypotension including home amlodipine and lisinopril -White count normal at 6.4. Stool panel pending Chronic conditions: Stable Continue allopurinol 100 mg daily for gout Continue apixaban 2.5 mg twice daily for chronic DVT Continue Prozac 20 mg daily for depression Continue finasteride 5 mg daily, terazosin and 2 mg twice daily, oxybutynin 5 mg daily for BPH and urinary symptoms Continue PPI daily for GERD Continue melatonin 5 mg nightly for sleep Full code Regular diet Eliquis 2.5 mg twice daily per home regimen
--- NOTE | 2024-03-14 13:42 | PC.NURSE ---
notified [facility] of pt refusal to go to there facility and refusal formed faxed
[2024-03-14 14:09] LABS: Lactic Acid 0.7 mmol/L (0.7-2.1)
[2024-03-14 14:30] LABS: Troponin I < 0.01 ng/ml (0.00-0.034)
[2024-03-14 15:29] LABS: Microscopic, Urine URINE MICROSCOPIC (MICROSCOPIC)
[2024-03-14 15:33] LABS: Appearance,Urine CLEAR (Clear); Bilirubin,Urine Negative (Negative); Blood, Urine Negative (Negative); Color,Urine YELLOW (Yellow); Glucose,Urine (UA) Negative (Negative); Ketones,Urine Negative (Negative); Leukocyte Esterase,Urine Negative (Negative); Nitrate,Urine Negative (Negative); Protein,Urine Negative (Negative); Urobilinogen,Urine 0.2 EU/dl (0.2)
[2024-03-14 16:04] LABS: RBC,Urine Occasional #/hpf (0-3); WBC,Urine Occasional #/hpf (0-3)
[2024-03-14 16:05] LABS: Bacteria,Urine Trace /lpf
[2024-03-14 16:53] LABS: Troponin I < 0.01 ng/ml (0.00-0.034)
[2024-03-14 17:12] LABS: Chloride 115 mmol/L (98-107); Potassium 4.4 mmoL/L (3.5-5.1); Sodium 135 mmol/L (136-145)
[2024-03-14 17:15] LABS: Anion Gap 7.4 mEq/L (5-15); Blood Urea Nitrogen 38 mg/dl (9-20); Carbon Dioxide 17 mmol/L (22.0-30.0); Creatinine Clearance Estimated 54 mL/min (50-200); Estimated Glomerular Filt Rate 32 ml/min (>60); GFR (African American) 38 ML/MIN (>60); Glucose 99 mg/dl (74-100)
--- NOTE | 2024-03-14 17:39 | PC.NURSE ---
pt a&ox4. up to chair since arriving to the floor. pt does not complain of any pain or dizziness when ambulating. ambulates independently. educated pt on the need to call out when ambulating so that someone can standby incase dizziness occurs. pt verbalized understanding. lungs clear, bowel sounds active. pt has not had bm since arriving to the floor, so stool sample still needs to be collected. tolerating ra and regular diet. pt has no complaints at this time. call light within reach.
[2024-03-14] MEDS: APIXABAN 2.5 MG 2.5 EACH PO (20:14)
[2024-03-14] MEDS: PANTOPRAZOLE 40MG TABLET 40 MG PO (20:15)
[2024-03-14] MEDS: PRAVASTATIN 20MG TAB 20 MG PO (20:16)
[2024-03-15 04:00] VITALS: BMI 34.0
[2024-03-15 07:10] LABS: HCV Ab Non Reactive (Non Reactive)
[2024-03-15 07:12] LABS: Albumin Level 3.2 g/dl (3.5-5.0); Chloride 116 mmol/L (98-107); Sodium 136 mmol/L (136-145)
[2024-03-15 07:15] LABS: Alanine Aminotransferase 21 U/L (12-78); Albumin/Globulin Ratio 1.3 (1.1-1.8); Alkaline Phosphatase 59 U/L (38-126); Aspartate Amino Transferase 31 U/L (17-59); Bilirubin,Total 0.3 mg/dl (0.2-1.3); Blood Urea Nitrogen 32 mg/dl (9-20); Calcium 8.4 mg/dl (8.4-10.2); Carbon Dioxide 21 mmol/L (22.0-30.0); Creatinine Clearance Estimated 62 mL/min (50-200); Estimated Glomerular Filt Rate 36 ml/min (>60); GFR (African American) 43 ML/MIN (>60); Globulin 2.4 g/dL (1.3-3.2); Glucose 94 mg/dl (74-100); Total Protein,Serum 5.6 g/dl (6.3-8.2)
[2024-03-15 07:38] LABS: Hematocrit 36.7 % (42.0-52.0); Mean Corpuscular Hemoglobin 30.6 pg (27.0-31.2); Mean Corpuscular Volume 92.9 fl (80-94); Red Blood Count 3.95 M/mm3 (4.60-6.20); White Blood Count 5.8 K/mm3 (4.8-10.8)
[2024-03-15 07:39] LABS: Basophils % 0.7 % (0.1-2.0); Lymphocytes % 32.6 % (10-50); Mean Platelet Volume 10.8 fl (7.4-10.4); Monocytes % 12.3 % (1.7-9.3); Neutrophils % 49.1 % (37.0-80.0); Platelet Count 186 K/mm3 (142-424); Red Cell Distribution Width 13.3 % (11.5-17.5)
[2024-03-15 07:40] LABS: Eosinophils # 0.3 K/mm3 (0.0-0.4); Hemoglobin 12.1 g/dL (14.1-18.0); Lymphocytes # 1.9 K/mm3 (0.7-4.5); Monocytes # 0.7 K/mm3 (0.1-1.0); Neutrophils # 2.9 K/mm3 (1.8-7.8)
--- NOTE | 2024-03-15 07:45 | P.DS_ITS ---
General Admission date:: 03/14/24 Discharge date: 03/15/24 HPI HPI HPI: Mr. Salazar is a 68-year-old male with multiple comorbidities including BPH, hypertension, hyperlipidemia, depression, GERD, gout, CKD 3. He presented to the ER after having diarrhea for the past 2 days. Had significant watery diarrhea with no blood. Nausea but no vomiting. Has become dehydrated. Continue to take his blood pressure meds however. This morning noticed that he was dizzy and felt like he was about to pass out but did not lose consciousness. Laid down on the floor and checked his blood pressure and found systolic blood pressures in the 70s to 80s depending on the arm he checked. Came to the ER for further management. Denied having any abdominal pain, chest pain, shortness of breath, peri syncope, change in vision or confusion. On workup in the ER, found to have ANTONY with bump in creatinine to 2.4. Orthostatic hypotension even after fluid resuscitation. Medicine consulted for admission and further manage ment due to his metabolic disturbances and kidney injury. Upon arrival to the floor, blood pressure showing slight improvement. Patient still quite weak. No further diarrhea yet. at bedside helps supplement history. Patient alert and oriented x 4. Afebrile. Hospital Course Hospital Course Hospital Course: 68-year-old male who presented with diarrhea, dehydration, hypotension. Found to have ANTONY and metabolic derangements along with orthostatic hypotension even after fluid resuscitation. Discussed case with ER physician who request admission for continued treatment and serial labs. I agreed to admit for further management. Labs back to baseline by morning with fluid resuscitation. Overall doing well. Stable to discharge home. Problems addressed as follows: Dehydration ANTONY on CKD 3 Diarrhea/gastroenteritis -Resuscitated with 2 L IV fluids in the ER. Tolerating p.o. liquids. Initial labs showed kidney injury with BUN 40, creatinine 2.4 on arrival to the ER. Improved by morning. Patient's baseline per his report is 1.8-1.9. Electrolyte disturbances improved. Metabolic acidosis and potassium levels normal on morning of discharge. Okay to resume blood pressure meds in the morning. Recommend follow-up with his PCP within the next week for repeat blood pressure check and labs. No longer having any dizziness. No diarrhea overnight. Chronic conditions: Stable Continue allopurinol 100 mg daily for gout Continue apixaban 2.5 mg twice daily for chronic DVT Continue Prozac 20 mg daily for depression Continue finasteride 5 mg daily, terazosin and 2 mg twice daily, oxybutynin 5 mg daily for BPH and urinary symptoms Continue PPI daily for GERD Continue melatonin 5 mg nightly for sleep Exam Data for Last 24 hours Vital signs and Labs for Last 24 Hours: Temp Pulse Resp BP Pulse Ox O2 Del Method 97.6 F 64 16 125/75 97 Room Air 03/14/24 20:00 03/14/24 20:00 03/14/24 20:00 03/14/24 20:00 03/14/24 20:00 03/14/24 20:00 Laboratory Results - last 24 hr 03/14/24 10:06: WBC 6.4, RBC 4.78, Hgb 14.8, Hct 45.3, MCV 94.7 H, MCH 31.0, MCHC 32.7, RDW 13.8, Plt Count 216, MPV 8.6, Neut % (Auto) 69.3, Lymph % (Auto) 19.7, [place] % (Auto) 8.4, Eos % (Auto) 2.0, Baso % (Auto) 0.6, Neut # (Auto) 4.4, Lymph # (Auto) 1.3, [place] # (Auto) 0.5, Eos # (Auto) 0.1, Baso # (Auto) 0.0, Sodium 140, Potassium 3.8, Chloride 112 H, Carbon Dioxide 20 L, Anion Gap 11.8, BUN 40 H, Creatinine 2.40 H, Estimated Creat Clear 48, Estimated GFR 27 L, Est GFR ( Amer) 33 L, Glucose 98, Calcium 8.2 L, Phosphorus 2.7, Magnesium 1.9, Total Bilirubin 0.7, AST 36, ALT 25, Alkaline Phosphatase 68, Troponin I < 0.01, Total Protein 6.7, Albumin 3.9, Globulin 2.8, Albumin/Globulin Ratio 1.4, Lipase 72, TSH 1.84, Thyroxine (T4) 7.5, Hepatitis C Antibody Non reactive, HIV Ag/Ab Combo Qual Negative 03/14/24 10:24: VBG pH 7.27 L, VBG pCO2 42.8, VBG pO2 37.9, VBG HCO3 19.3 L, VBG Total CO2 20.6 L, VBG O2 Saturation 71.8 H, VBG Base Excess -7.6 L, VBG Lactic Acid 1.8 03/14/24 12:21: SARS-CoV-2 (PCR) Not detected, Influenza A Untype (PCR) Not detected, Influenza Type B (PCR) Not detected 03/14/24 13:45: Sodium 135 L, Potassium 4.4, Chloride 115 H, Carbon Dioxide 17 L , Anion Gap 7.4, BUN 38 H, Creatinine 2.10 H, Estimated Creat Clear 54, Estimated GFR 32 L, Est GFR ( Amer) 38 L, Glucose 99, Lactate 0.7, Calcium 8.0 L, Troponin I < 0.01 03/14/24 15:20: Urine Color Yellow, Urine Appearance Clear, Urine pH 6.0, Ur Specific [place] 1.020, Urine Protein Negative, Urine Glucose (UA) Negative, Urine Ketones Negative, Urine Blood Negative, Urine Nitrate Negative, Urine Bilirubin Negative, Urine Urobilinogen 0.2, Ur Leukocyte Esterase Negative, Urine RBC Occasional, Urine WBC Occasional, Ur Squamous Epith Cells 10-20, Urine Bacteria Trace 03/14/24 16:09: Troponin I < 0.01 03/15/24 06:47: WBC 5.8, RBC 3.95 L, Hgb 12.1 L D, Hct 36.7 L, MCV 92.9, MCH 30.6, MCHC 33.0, RDW 13.3, Plt Count 186, MPV 10.8 H, Neut % (Auto) 49.1, Lymph % (Auto) 32.6, [place] % (Auto) 12.3 H, Eos % (Auto) 5.0, Baso % (Auto) 0.7, Neut # (Auto) 2.9, Lymph # (Auto) 1.9, [place] # (Auto) 0.7, Eos # (Auto) 0.3, Baso # (Auto) 0.0, Sodium 136, Potassium 5.0, Chloride 116 H, Carbon Dioxide 21 L, Anion Gap 4.0 L, BUN 32 H, Creatinine 1.90 H, Estimated Creat Clear 62, E stimated GFR 36 L, Est GFR ( Amer) 43 L, Glucose 94, Calcium 8.4, Magnesium 2.0, Total Bilirubin 0.3, AST 31, ALT 21, Alkaline Phosphatase 59, Total Protein 5.6 L, Albumin 3.2 L D, Globulin 2.4, Albumin/Globulin Ratio 1.3 I & O for Last 24 hours: Intake & Output 03/12/24 03/13/24 03/14/24 03/15/24 23:59 23:59 23:59 23:59 Intake Total 360 / 360 Output Total 0 / 0 0 / 0 Balance 360 / 360 0 / 0 Weight 111.13 kg 114.033 kg Constitutional Constitutional: no acute distress, obese and cooperative *Routine HEENT Exam Head: Present normocephalic Eye: Present EOMI and PERRL ENT: Present mucous membranes moist *Routine Neck Exam Neck: Present supple; Absent lymphadenopathy *Routine Respiratory Exam Respiratory: Present CTA bilaterally; Absent wheezes or crackles *Routine Cardiovascular Exam Cardiovascular: Present RRR *Routine Abdominal Exam Abdominal: Present soft and normoactive bowel sounds; Absent tenderness *Routine Rectal Exam Patient deferred: visual exam *Routine Exam Patient deferred: penile exam *Routine Extremities Exam Extremities: Absent cyanosis, clubbing or edema *Routine Skin Exam Skin: Present warm; Absent rash *Routine Neurological Exam Neurological: Present alert, oriented X3 and moving all extremities; Absent altered mental status Results Data Completed and Pending Labs on day of discharge: Labs from last 24 hours 03/15/24 03/14/24 03/14/24 06:47 16:09 15:20 WBC 5.8 RBC 3.95 L Hgb 12.1 L D Hct 36.7 L MCV 92.9 MCH 30.6 MCHC 33.0 RDW 13.3 Plt Count 186 MPV 10.8 H Neut % (Auto) 49.1 Lymph % (Auto) 32.6 [place] % (Auto) 12.3 H Eos % (Auto) 5.0 Baso % (Auto) 0.7 Neut # (Auto) 2.9 Lymph # (Auto) 1.9 [place] # (Auto) 0.7 Eos # (Auto) 0.3 Baso # (Auto) 0.0 VBG pH VBG pCO2 VBG pO2 VBG HCO3 VBG Total CO2 VBG O2 Saturation VBG Base Excess VBG Lactic Acid Sodium 136 Potassium 5.0 Chloride 116 H Carbon Dioxide 21 L Anion Gap 4.0 L BUN 32 H Creatinine 1.90 H Estimated Creat Clear 62 Estimated GFR 36 L Est GFR ( Amer) 43 L Glucose 94 Lactate Calcium 8.4 Phosphorus Magnesium 2.0 Total Bilirubin 0.3 AST 31 ALT 21 Alkaline Phosphatase 59 Troponin I < 0.01 Total Protein 5.6 L Albumin 3.2 L D Globulin 2.4 Albumin/Globulin Ratio 1.3 Lipase TSH Thyroxine (T4) Urine Color Yellow Urine Appearance Clear Urine pH 6.0 Ur Specific [place] 1.020 Urine Protein Negative Urine Glucose (UA) Negative Urine Ketones Negative Urine Blood Negative Urine Nitrate Negative Urine Bilirubin Negative Urine Urobilinogen 0.2 Ur Leukocyte Esterase Negative Urine RBC Occasional Urine WBC Occasional Ur Squamous Epith Cells 10-20 Urine Bacteria Trace SARS-CoV-2 (PCR) Hepatitis C Antibody HIV Ag/Ab Combo Qual Influenza A Untype (PCR) Influenza Type B (PCR) 03/14/24 03/14/24 03/14/24 13:45 12:21 10:24 WBC RBC Hgb Hct MCV MCH MCHC RDW Plt Count MPV Neut % (Auto) Lymph % (Auto) [place] % (Auto) Eos % (Auto) Baso % (Auto) Neut # (Auto) Lymph # (Auto) [place] # (Auto) Eos # (Auto) Baso # (Auto) VBG pH 7.27 L VBG pCO2 42.8 VBG pO2 37.9 VBG HCO3 19.3 L VBG Total CO2 20.6 L VBG O2 Saturation 71.8 H VBG Base Excess -7.6 L VBG Lactic Acid 1.8 Sodium 135 L Potassium 4.4 Chloride 115 H Carbon Dioxide 17 L Anion Gap 7.4 BUN 38 H Creatinine 2.10 H Estimated Creat Clear 54 Estimated GFR 32 L Est GFR ( Amer) 38 L Glucose 99 Lactate 0.7 Calcium 8.0 L Phosphorus Magnesium Total Bilirubin AST ALT Alkaline Phosphatase Troponin I < 0.01 Total Protein Albumin Globulin Albumin/Globulin Ratio Lipase TSH Thyroxine (T4) Urine Color Urine Appearance Urine pH Ur Specific [place] Urine Protein Urine Glucose (UA) Urine Ketones Urine Blood Urine Nitrate Urine Bilirubin Urine Urobilinogen Ur Leukocyte Esterase Urine RBC Urine WBC Ur Squamous Epith Cells Urine Bacteria SARS-CoV-2 (PCR) Not detected Hepatitis C Antibody HIV Ag/Ab Combo Qual Influenza A Untype (PCR) Not detected Influenza Type B (PCR) Not detected 03/14/24 10:06 WBC 6.4 RBC 4.78 Hgb 14.8 Hct 45.3 MCV 94.7 H MCH 31.0 MCHC 32.7 RDW 13.8 Plt Count 216 MPV 8.6 Neut % (Auto) 69.3 Lymph % (Auto) 19.7 [place] % (Auto) 8.4 Eos % (Auto) 2.0 Baso % (Auto) 0.6 Neut # (Auto) 4.4 Lymph # (Auto) 1.3 [place] # (Auto) 0.5 Eos # (Auto) 0.1 Baso # (Auto) 0.0 VBG pH VBG pCO2 VBG pO2 VBG HCO3 VBG Total CO2 VBG O2 Saturation VBG Base Excess VBG Lactic Acid Sodium 140 Potassium 3.8 Chloride 112 H Carbon Dioxide 20 L Anion Gap 11.8 BUN 40 H Creatinine 2.40 H Estimated Creat Clear 48 Estimated GFR 27 L Est GFR ( Amer) 33 L Glucose 98 Lactate Calcium 8.2 L Phosphorus 2.7 Magnesium 1.9 Total Bilirubin 0.7 AST 36 ALT 25 Alkaline Phosphatase 68 Troponin I < 0.01 Total Protein 6.7 Albumin 3.9 Globulin 2.8 Albumin/Globulin Ratio 1.4 Lipase 72 TSH 1.84 Thyroxine (T4) 7.5 Urine Color Urine Appearance Urine pH Ur Specific [place] Urine Protein Urine Glucose (UA) Urine Ketones Urine Blood Urine Nitrate Urine Bilirubin Urine Urobilinogen Ur Leukocyte Esterase Urine RBC Urine WBC Ur Squamous Epith Cells Urine Bacteria SARS-CoV-2 (PCR) Hepatitis C Antibody Non reactive HIV Ag/Ab Combo Qual Negative Influenza A Untype (PCR) Influenza Type B (PCR) DS: Diagnosis Discharge Diagnosis (1) ANTONY (acute kidney injury): Status: Acute Code(s): N17.9 - Acute kidney failure, unspecified (2) Orthostatic hypotension: Status: Acute Code(s): I95.1 - Orthostatic hypotension (3) Diarrhea: Status: Acute Code(s): R19.7 - Diarrhea, unspecified (4) Hypocalcemia: Status: Acute Code(s): E83.51 - Hypocalcemia (5) Metabolic acidosis: Status: Acute Code(s): E87.20 - Acidosis, unspecified (6) GERD (gastroesophageal reflux disease): Status: Chronic Code(s): K21.9 - Gastro-esophageal reflux disease without esophagitis Qualifiers: Esophagitis presence: without esophagitis Qualified Code(s): K21.9 - Gastro-esophageal reflux disease without esophagitis (7) HTN (hypertension), benign: Status: Chronic Code(s): I10 - Essential (primary) hypertension (8) Chronic kidney disease, stage 3: Status: Chronic Code(s): N18.30 - Chronic kidney disease, stage 3 unspecified (9) BPH (benign prostatic hyperplasia): Status: Chronic Code(s): N40.0 - Benign prostatic hyperplasia without lower urinary tract symptoms (10) Depression: Status: Chronic Code(s): F32.A - Depression, unspecified (11) DVT (deep venous thrombosis): Status: Chronic Code(s): I82.409 - Acute embolism and thrombosis of unspecified deep veins of unspecified lower extremity Meds Home Medications and Allergies Home Medications ?Medication ?Instructions ?Recorded ?Confirmed ?Type allopurinol 100 mg tablet 100 mg PO DAILY gout 11/03/21 03/14/24 History apixaban 2.5 mg tablet 2.5 mg PO BID Blood thinner 11/03/21 03/14/24 History finasteride 5 mg tablet 5 mg PO DAILY prostate 11/03/21 03/14/24 History fluoxetine 20 mg capsule 20 mg PO DAILY Depression 11/03/21 03/14/24 History lisinopril 40 mg tablet 40 mg PO DAILY High blood pressure 11/03/21 03/14/24 History melatonin 5 mg capsule 5 mg PO HS sleep 11/03/21 03/14/24 History omeprazole magnesium 20 mg 20 mg PO DAILY GERD 11/03/21 03/14/24 History tablet,delayed release oxybutynin chloride 5 mg 5 mg PO DAILY bladder 11/03/21 03/14/24 History tablet,extended release 24 hr pravastatin 20 mg tablet 20 mg PO HS High cholesterol 11/03/21 03/14/24 History terazosin 2 mg capsule 2 mg PO BID High blood pressure 11/03/21 03/14/24 History amlodipine 5 mg tablet 5 mg PO DAILY 03/11/24 03/14/24 History atorvastatin 20 mg tablet 20 mg PO HS 03/11/24 03/14/24 History cholecalciferol (vitamin D3) 25 25 mcg PO DAILY 03/11/24 03/14/24 History mcg (1,000 unit) chewable tablet New Prescriptions to Start Prescriptions: Allergies Allergy/AdvReac Type Severity Reaction Status Date / Time Iodinated Contrast Media Allergy Verified 03/13/24 09:45 Discharge Plan Disposition Patient Disposition: Home, Self-Care Condition: Good Follow up Plan Follow up with: Janet Joaquin [Primary Care Provider] - See instructions (1 week please call for appointment as office was closed) Prescriptions/Medication Reconciliation: Continued atorvastatin 20 mg Tablet 20 mg PO HS amlodipine 5 mg Tablet 5 mg PO DAILY cholecalciferol (vitamin D3) 25 mcg (1,000 unit) Tablet,Chewable 25 mcg PO DAILY allopurinol 100 MG tablet 100 mg PO DAILY terazosin 2 MG capsule 2 mg PO BID oxybutynin chloride 5 MG tablet extended release 24 hr 5 mg PO DAILY pravastatin 20 MG tablet 20 mg PO HS lisinopril 40 MG tablet 40 mg PO DAILY fluoxetine 20 MG capsule 20 mg PO DAILY finasteride 5 MG tablet 5 mg PO DAILY omeprazole magnesium 20 MG tablet,delayed release (DR/EC) 20 mg PO DAILY melatonin 5 MG capsule 5 mg PO HS apixaban 2.5 MG tablet 2.5 mg PO BID Problem Reconciliation Problems Reviewed?: Yes Patient Discharge Instructions ACTIVITY: Continue current activity DIET: continue same diet Patient Instructions: Acute Kidney Injury Print Language: Yi Providers Primary Care Provider: Janet Joaquin Admit Provider: Josse Sears Attending Provider: Josse Sears
[2024-03-15 08:00] VITALS: BP 122/71; PULSE 68; RESP 15; TEMP 36.7; O2SAT 96
[2024-03-15] MEDS: ALLOPURINOL 100MG TABLET 100 MG PO (08:41)
[2024-03-15] MEDS: OXYBUTYNIN 5MG TAB 5 MG PO (08:41)
[2024-03-15] MEDS: TERAZOSIN 1MG CAPSULE 2 MG PO (08:42)
[2024-03-15] MEDS: FINASTERIDE 5MG TABLET 5 MG PO (08:42)
[2024-03-15] MEDS: APIXABAN 5MG TABLET 2.5 MG PO (08:42)
[2024-03-15] MEDS: FLUOXETINE 20MG CAPSULE 20 MG PO (08:42)
--- NOTE | 2024-03-15 09:02 | PC.NURSE ---
03/15/24 0700 Pt. alert and orientated x 4. Pt. had a stable night. slept well. VSS . personal items and call mercedes in reach.
--- NOTE | 2024-03-16 10:00 | SW/DCPLANNER ---
Spoke with patient on the phone. Patient stated that he is doing well but he just needs to regain his strength. Patient stated that he is aware of his upcoming appointment. Patient stated that he has no concerns or questions at this time. Alan Louis
== END 2024-03-15 09:24 | disposition home or self-care (01) ==
LOC: ER 13:12 → 2ND 13:28
PROVIDERS: Admitting Provider Internal Medicine Adolescent Medicine; Emergency Provider Emergency Medicine; PCP Family Medicine; Visit Provider Internal Medicine Adolescent Medicine
DX: I95.1 Orthostatic hypotension (principal); N17.9 Acute kidney failure, unspecified; R19.7 Diarrhea, unspecified; E83.51 Hypocalcemia; E87.20 Acidosis, unspecified; K21.9 Gastro-esophageal reflux disease without esophagitis; N18.30 Chronic kidney disease, stage 3 unspecified; N40.0 Benign prostatic hyperplasia without lower urinary tract symptoms; F32.A Depression, unspecified; I12.9 Hypertensive chronic kidney disease with stage 1 through stage 4 chronic kidney disease, or unspecified chronic kidney disease; Z79.01 Long term (current) use of anticoagulants; Z79.899 Other long term (current) drug therapy; Z86.718 Personal history of other venous thrombosis and embolism; K52.9 Noninfective gastroenteritis and colitis, unspecified
CPT/HCPCS: 36415; 80048; 80053; 81001; 82803; 83605; 83690; 83735; 84100; 84436; 84443; 84484; 85025; 86803; 87389; 87636; 93005; 93971; 99285; G0378; J7030

== ENCOUNTER 2024-03-16 11:32 | Emergency (ER) | payer MEDICARE, OTHER, SELFPAY ==
[2024-03-16] VITALS (9 sets, daily range): BP systolic 100–129; BP diastolic 65–85; PULSE 61–96; RESP 11–20; TEMP 36.6–37.1; O2SAT 94–98; BMI 33.8; BMI 33.9
--- NOTE | 2024-03-16 11:39 | ECG_ITS ---
APPROVED REPORT Exam: Resting ECG HR:73 bpm ECG Measurements Heart Rate 73 AXES WY 187 P 54 QRSd 114 QRS 56 QT 374 T 39 QTc 400 Conclusion SINUS RHYTHM POSSIBLE INFERIOR MYOCARDIAL INFARCTION , PROBABLY OLD [30 ms Q WAVE IN II/aVF] No significant changes from prior EKG Electronically signed by : CARMEL REGALADO, 03/16/2024 16:48:11
--- NOTE | 2024-03-16 11:45 | PC.NURSE ---
FSBS is 91 at 1142
[2024-03-16 12:07] LABS: Albumin Level 3.9 g/dl (3.5-5.0); Chloride 113 mmol/L (98-107); Potassium 4.3 mmoL/L (3.5-5.1); Sodium 137 mmol/L (136-145)
[2024-03-16 12:10] LABS: Alanine Aminotransferase 25 U/L (12-78); Albumin/Globulin Ratio 1.4 (1.1-1.8); Alkaline Phosphatase 61 U/L (38-126); Anion Gap 7.3 mEq/L (5-15); Aspartate Amino Transferase 35 U/L (17-59); Bilirubin,Total 0.4 mg/dl (0.2-1.3); Blood Urea Nitrogen 30 mg/dl (9-20); Calcium 9.1 mg/dl (8.4-10.2); Carbon Dioxide 21 mmol/L (22.0-30.0); Creatinine Clearance Estimated 65 mL/min (50-200); Estimated Glomerular Filt Rate 38 ml/min (>60); GFR (African American) 46 ML/MIN (>60); Globulin 2.7 g/dL (1.3-3.2); Glucose 90 mg/dl (74-100); Total Protein,Serum 6.6 g/dl (6.3-8.2)
[2024-03-16 12:12] LABS: Hematocrit 40.2 % (42.0-52.0); Hemoglobin 13.3 g/dL (14.1-18.0); Mean Corpuscular HGB Conc 33.1 g/dL (31.8-35.4); Mean Corpuscular Hemoglobin 30.2 pg (27.0-31.2); Mean Corpuscular Volume 91.2 fl (80-94); Mean Platelet Volume 10.9 fl (7.4-10.4); Neutrophils % 63.5 % (37.0-80.0); Platelet Count 206 K/mm3 (142-424); Red Blood Count 4.41 M/mm3 (4.60-6.20); Red Cell Distribution Width 13.2 % (11.5-17.5); White Blood Count 6.9 K/mm3 (4.8-10.8)
[2024-03-16 12:13] LABS: Basophils % 0.6 % (0.1-2.0); Eosinophils # 0.3 K/mm3 (0.0-0.4); Eosinophils % 3.6 % (0.1-12.0); Lymphocytes # 1.6 K/mm3 (0.7-4.5); Lymphocytes % 23.5 % (10-50); Monocytes # 0.6 K/mm3 (0.1-1.0); Monocytes % 8.7 % (1.7-9.3); Neutrophils # 4.4 K/mm3 (1.8-7.8)
--- NOTE | 2024-03-16 12:26 | CT_ITS ---
FINAL REPORT TECHNIQUE: Noncontrast exam This study was performed with techniques to keep radiation doses as low as reasonably achievable, (ALARA). Individualized dose reduction techniques using automated exposure control or adjustment of mA and/or kV according to the patient''s size were employed. CLINICAL HISTORY: dizziness, headache COMPARISON: 07/15/2022 FINDINGS: Mild chronic ischemic white matter changes are noted. No cortical edema is present. There is no mass or hemorrhage. Ventricles are normal. Bone windows show no skull fracture or obvious obstructive lesion. IMPRESSION: 1. No acute intracranial abnormality or obvious mass. 2. Stable chronic ischemic white matter changes as above. Reviewed, Interpreted and Dictated by Ethel Doherty MD Transcribed by Lucy Bauman Authenticated and [facility]
--- NOTE | 2024-03-16 12:26 | CT_ITS ---
FINAL REPORT TECHNIQUE: Noncontrast exam This study was performed with techniques to keep radiation doses as low as reasonably achievable, (ALARA). Individualized dose reduction techniques using automated exposure control or adjustment of mA and/or kV according to the patient''s size were employed. CLINICAL HISTORY: no BM, recent diarrheal illness COMPARISON: 07/15/2022 FINDINGS: Abdomen: Lung bases are clear. Liver, spleen, pancreas and adrenal glands have a normal CT appearance in their limited unenhanced state. There is severe right renal atrophy. There is an exophytic nodule in the left kidney which is stable. The kidneys show no stone disease or obstruction. No ureteral stones are present. Pelvis: The appendix is normal. The bowel is unremarkable. There is moderate sigmoid diverticulosis. No distal ureteral stones are seen. Bladder is unremarkable. No fluid collection or adenopathy is seen. IMPRESSION: No acute findings. Reviewed, Interpreted and Dictated by Ethel Doherty MD Transcribed by Dianelys Page Authenticated and [facility]
[2024-03-16 12:31] LABS: Troponin I < 0.01 ng/ml (0.00-0.034)
[2024-03-16] MEDS: KETOROLAC 30MG/ML VIAL 15 MG IV (12:38)
[2024-03-16] MEDS: ACETAMINOPHEN 1,000MG/100ML VIAL 1000 MG IV (12:38)
[2024-03-16] MEDS: diphenhydrAMINE 50MG/ML VIAL 12.5 MG IVP (12:39)
[2024-03-16] MEDS: METOCLOPRAMIDE HCL 10MG/2ML VIAL 5 MG IVP (12:39)
[2024-03-16 12:43] LABS: Coronavirus 19, PCR Not Detected (NotDetected); Influenza A, PCR Not Detected (NotDetected); Influenza B, PCR Not Detected (NotDetected)
[2024-03-16] MEDS: 0.9 % SODIUM CHLORIDE 1000ML 500 ML 999 ML IV (12:43)
[2024-03-16 12:45] LABS: Phosphorous 3.2 mg/dl (2.5-4.5)
--- NOTE | 2024-03-16 12:47 | PC.NURSE ---
Patient is out of room. Patient is gone to CT.
[2024-03-16 12:49] LABS: Lactate Venous 1.2 mmol/L (0.4-2.0); VBG Base Excess -6.5 mmol/L (-2.4-2.3); VBG HCO3 19.6 mmol/L (23-30); VBG Oxygen Saturation 81.3 % (50-70); VBG PCO2 38.5 mmol/L (35-51); VBG PH 7.32 mmol/L (7.31-7.41); VBG PO2 44.4 mmol/L (28-40); VBG Total CO2 20.8 mmol/L (23-27)
[2024-03-16 13:04] LABS: T4 (Thyroxine) 8.2 ug/dl (5.53-11.0)
[2024-03-16 13:17] LABS: Thyroid Stimulating Hormone 4.15 uIU/mL (0.465-4.68)
--- NOTE | 2024-03-16 13:27 | HMH.EDGENADL ---
Discharge Plan Disposition Patient Disposition: Home, Self-Care Condition: Good Prescriptions Prescriptions: No Action atorvastatin 20 mg Tablet 20 mg PO HS amlodipine 5 mg Tablet 5 mg PO DAILY cholecalciferol (vitamin D3) 25 mcg (1,000 unit) Tablet,Chewable 25 mcg PO DAILY allopurinol 100 MG tablet 100 mg PO DAILY terazosin 2 MG capsule 2 mg PO BID oxybutynin chloride 5 MG tablet extended release 24 hr 5 mg PO DAILY pravastatin 20 MG tablet 20 mg PO HS lisinopril 40 MG tablet 40 mg PO DAILY fluoxetine 20 MG capsule 20 mg PO DAILY finasteride 5 MG tablet 5 mg PO DAILY omeprazole magnesium 20 MG tablet,delayed release (DR/EC) 20 mg PO DAILY melatonin 5 MG capsule 5 mg PO HS apixaban 2.5 MG tablet 2.5 mg PO BID Referrals Follow up/Referrals: North Blackwell MD [Staff Physician] - See instructions Janet Joaquin [Primary Care Provider] - See instructions Activity Restrictions/Add. Instructions Additional Instructions/Restrictions: You were evaluated in the emergency department today. At this time, it is possible your symptoms could be a manifestation of initiating your blood pressure medication causing low blood pressure. I recommend holding your blood pressure medication. Keep a log of your blood pressures, taking it twice a day. Please provide your primary care provider a log of your blood pressures. Also recommend close follow-up with cardiology. Return to the emergency department for new or worsening symptoms. Clinical Impressions Clinical Impression: Orthostatic hypotension, CKD (chronic kidney disease), Headache Stand Alone Forms Stand Alone Forms: Work/School Release Instructions Patient Instructions: DI for Orthostatic Hypotension, DI for Headache Print Language Print Language: Italian Discharge ED Provider: Keisha Manzanares General Adult HPI General Chief complaint: Weakness Stated complaint: shaky, headache, dizzy, high pulse Time Seen by Provider: 03/16/24 11:42 Mode of Arrival: Wheelchair Source of Information: Patient Limitations: No Limitations Description of Symptoms (Recalled from ER Triage Doc. by RN): pt to the ED with generalized weakness and shakiness that started less than an hour ago while he was visiting a friend. pt denies any pain or SOB. pt finger stick checked at triage and was 91 at this time. NIH of 0 on tirgae. History of Present Illness HPI narrative: This patient is a 68-year-old male with a history of hypertension, CKD 3, GERD, prior DVT on Eliquis, BPH, hyperlipidemia presented to the emergency department for evaluation with concern for lightheadedness, high heart rate, headache, nausea, and general weakness. Patient states that he was just discharged yesterday after being admitted for ANTONY and diarrhea, and this morning he was feeling fine. He took his blood pressure medication for the first time since all of this illness that started, and he states that while he was visiting someone at [place] he started feeling very ill. He states that they checked his heart rate and blood pressure, and his heart rate was high. He felt like his head was pounding, he was very lightheaded, was nauseated, and felt like his stomach was churning. He called his to come get him because he knew there was no way he could drive with how he was feeling, and she brought him in for further evaluation and management. He denies any other specific concerns or complaints, such as visual disturbance, unilateral numbness or tingling, unilateral weakness, chest pain, shortness of breath, vomiting, diarrhea. He does note that he is actually having trouble having bowel movements and has not had 1 today. He is not passing gas. Related Data Home Medications ?Medication ?Instructions ?Recorded ?Confirmed allopurinol 100 mg tablet 100 mg PO DAILY gout 11/03/21 03/14/24 apixaban 2.5 mg tablet 2.5 mg PO BID Blood thinner 11/03/21 03/14/24 finasteride 5 mg tablet 5 mg PO DAILY prostate 11/03/21 03/14/24 fluoxetine 20 mg capsule 20 mg PO DAILY Depression 11/03/21 03/14/24 lisinopril 40 mg tablet 40 mg PO DAILY High blood pressure 11/03/21 03/14/24 melatonin 5 mg capsule 5 mg PO HS sleep 11/03/21 03/14/24 omeprazole magnesium 20 mg 20 mg PO DAILY GERD 11/03/21 03/14/24 tablet,delayed release oxybutynin chloride 5 mg 5 mg PO DAILY bladder 11/03/21 03/14/24 tablet,extended release 24 hr pravastatin 20 mg tablet 20 mg PO HS High cholesterol 11/03/21 03/14/24 terazosin 2 mg capsule 2 mg PO BID High blood pressure 11/03/21 03/14/24 amlodipine 5 mg tablet 5 mg PO DAILY 03/11/24 03/14/24 atorvastatin 20 mg tablet 20 mg PO HS 03/11/24 03/14/24 cholecalciferol (vitamin D3) 25 25 mcg PO DAILY 03/11/24 03/14/24 mcg (1,000 unit) chewable tablet Allergies Allergy/AdvReac Type Severity Reaction Status Date / Time Iodinated Contrast Media Allergy Verified 03/13/24 09:45 [facility] Disclaimer: The information contained in this section may have been updated after the patient was seen, as this information can be updated by other users. Medical History Kidney stone DVT (deep venous thrombosis) Tonsillitis Detached retina Osteopenia BPH (benign prostatic hyperplasia) Depression Duodenal ulcer Diverticulosis Chronic kidney disease, stage 3 Gout Depression HLD (hyperlipidemia) HTN (hypertension), benign GERD (gastroesophageal reflux disease) Surgical History Hx of tonsillectomy Family History Other Alcoholism Cancer Coronary artery disease Social History Smoking Status: Never smoker alcohol intake: never current occupational status: employed and unemployed Travel in the last 8 weeks: None Have you lived/traveled outside US in past 30 days?: No Contact w/someone who lives/traveled outside US past 30 days?: No Exposure to someone with infectious disease in past 14 days?: No Do you have a fever (greater than 100.4 F or 38 C)?: No Have you tested positive for COVID-19: No Exposed to someone with COVID-19 in past 14 days?: No Do you have a sore throat?: No Do you have a cough?: No Do you have any weakness?: Yes Do you have any diarrhea?: No Are you experiencing any unusual bleeding?: No Do you have any muscle aches/pain?: No Do you have any abdominal pain?: No Are you experiencing loss of taste or smell?: No Other Medical History Have you received the Flu Vaccine for this season: No Have you received the Pneumonia Vaccine: No ROS Obtained: Yes All systems reviewed & no additional complaints except as documented Physical Exam General General appearance: alert and in no apparent distress Comment: Looks fatigued, as if he does not feel well Head Head exam: atraumatic and normocephalic Eye Eye exam: Present normal appearance, PERRL and EOMI ENT ENT exam: Present normal exam, normal oropharynx, mucous membranes moist and normal external ear exam Neck Neck exam: Present normal inspection, full ROM and trachea midline; Absent tenderness Chest Chest inspection: Present normal inspection and symmetric chest wall rise; Absent tenderness Respiratory Respiratory exam: Present normal lung sounds bilaterally; Absent respiratory distress, wheezes, stridor or accessory muscle use Cardiovascular Cardiovascular exam: Present regular rate and normal rhythm Abdominal Exam Abdominal exam: Present soft; Absent distention, tenderness or guarding Extremities Exam Extremities exam: Present normal inspection, full ROM and normal capillary refill; Absent tenderness or edema Back Exam Back exam: Present normal inspection and full ROM; Absent tenderness Neurological Exam Neurological exam: Present alert, oriented X3, CN II-XII intact and normal gait; Absent motor sensory deficit Psychiatric Psychiatric exam: Present normal affect and normal mood Skin Skin exam: Present warm and dry Medical Decision Making Medical Records Medical records reviewed: Yes I reviewed the patient's medical records. Screening: Per USPSTF and CDC recommendations, given the prevalence of disease in our region, it is our hospital?s policy to screen for HIV and viral Hepatitis for all patients aged 18 and over and those with ongoing risk factors. Santos Inquiry Pt receiving controlled substance: No Vital Signs: 03/16/24 11:33 03/16/24 12:01 03/16/24 12:27 Temperature 98.7 F Temperature Source Oral Pulse Rate 75 Pulse Rate [Left Radial] 83 Pulse Rate [Orthostatic Lying] 61 Pulse Rate [Orthostatic Sitting] 80 Pulse Rate [Orthostatic Standing] 96 H Respiratory Rate 16 14 Blood Pressure 121/81 Blood Pressure [Orthostatic Lying] 108/74 L Blood Pressure [Orthostatic Sitting] 108/76 L Blood Pressure [Orthostatic Standing] 100/65 L Blood Pressure [Right Arm] 129/81 Blood Pressure Mean Blood Pressure Mean [Right Arm] 97 Blood Pressure Source [Right Arm] Automatic Cuff Blood Pressure Position [Right Arm] Sitting 02 Sat by Pulse Oximetry 95 95 Oxygen Delivery Method Room Air Room Air 03/16/24 12:30 03/16/24 13:00 03/16/24 13:01 Temperature Temperature Source Pulse Rate 75 67 65 Pulse Rate [Left Radial] Pulse Rate [Orthostatic Lying] Pulse Rate [Orthostatic Sitting] Pulse Rate [Orthostatic Standing] Respiratory Rate 13 15 11 L Blood Pressure 117/85 117/80 108/74 L Blood Pressure [Orthostatic Lying] Blood Pressure [Orthostatic Sitting] Blood Pressure [Orthostatic Standing] Blood Pressure [Right Arm] Blood Pressure Mean Blood Pressure Mean [Right Arm] Blood Pressure Source [Right Arm] Blood Pressure Position [Right Arm] 02 Sat by Pulse Oximetry 96 96 95 Oxygen Delivery Method Room Air Room Air Room Air 03/16/24 13:03 03/16/24 13:04 03/16/24 13:04 Temperature Temperature Source Pulse Rate 81 95 H Pulse Rate [Left Radial] Pulse Rate [Orthostatic Lying] Pulse Rate [Orthostatic Sitting] Pulse Rate [Orthostatic Standing] Respiratory Rate 15 19 Blood Pressure 108/76 L 100/65 L 100/65 L Blood Pressure [Orthostatic Lying] Blood Pressure [Orthostatic Sitting] Blood Pressure [Orthostatic Standing] Blood Pressure [Right Arm] Blood Pressure Mean 76 Blood Pressure Mean [Right Arm] Blood Pressure Source [Right Arm] Blood Pressure Position [Right Arm] 02 Sat by Pulse Oximetry 97 96 94 L Oxygen Delivery Method Room Air Room Air Room Air 03/16/24 15:42 Temperature 98 F Temperature Source Pulse Rate 62 Pulse Rate [Left Radial] Pulse Rate [Orthostatic Lying] Pulse Rate [Orthostatic Sitting] Pulse Rate [Orthostatic Standing] Respiratory Rate 20 Blood Pressure 124/84 Blood Pressure [Orthostatic Lying] Blood Pressure [Orthostatic Sitting] Blood Pressure [Orthostatic Standing] Blood Pressure [Right Arm] Blood Pressure Mean Blood Pressure Mean [Right Arm] Blood Pressure Source [Right Arm] Blood Pressure Position [Right Arm] 02 Sat by Pulse Oximetry Oxygen Delivery Method Room Air Lab Data Lab results reviewed: Yes I reviewed the patient's lab results. Lab Results 03/16/24 11:44: WBC 6.9, RBC 4.41 L, Hgb 13.3 L, Hct 40.2 L, MCV 91.2, MCH 30.2, MCHC 33.1, RDW 13.2, Plt Count 206, MPV 10.9 H, Neut % (Auto) 63.5, Lymph % (Auto) 23.5, [place] % (Auto) 8.7, Eos % (Auto) 3.6, Baso % (Auto) 0.6, Neut # (Auto) 4.4, Lymph # (Auto) 1.6, [place] # (Auto) 0.6, Eos # (Auto) 0.3, Baso # (Auto) 0.0, Sodium 137, Potassium 4.3, Chloride 113 H, Carbon Dioxide 21 L, Anion Gap 7.3, BUN 30 H, Creatinine 1.80 H, Estimated Creat Clear 65, Estimated GFR 38 L, Est GFR ( Amer) 46 L, Glucose 90, Calcium 9.1, Phosphorus 3.2, Magnesium 2.0, Total Bilirubin 0.4, AST 35, ALT 25, Alkaline Phosphatase 61, Troponin I < 0.01, Total Protein 6.6, Albumin 3.9 D, Globulin 2.7, Albumin/Globulin Ratio 1.4, TSH 4.15 D, Thyroxine (T4) 8.2 03/16/24 12:27: VBG pH 7.32, VBG pCO2 38.5, VBG pO2 44.4 H, VBG HCO3 19.6 L, VBG Total CO2 20.8 L, VBG O2 Saturation 81.3 H, VBG Base Excess -6.5 L, VBG Lactic Acid 1.2 03/16/24 12:32: SARS-CoV-2 (PCR) Not detected, Influenza A Untype (PCR) Not detected, Influenza Type B (PCR) Not detected 03/16/24 13:36: Urine Color Yellow, Urine Appearance Clear, Urine pH 6.0, Ur Specific [place] 1.020, Urine Protein Negative, Urine Glucose (UA) Negative, Urine Ketones Negative, Urine Blood Negative, Urine Nitrate Negative, Urine Bilirubin Negative, Urine Urobilinogen 0.2, Ur Leukocyte Esterase Negative, Urine RBC None, Urine WBC None, Ur Squamous Epith Cells Occasional, Urine Bacteria Trace 03/16/24 14:30: Troponin I < 0.01 03/16/24 11:44 03/16/24 11:44 Orders (Tests/Meds): ED MEDICATIONS Discontinued Medications Generic Name Dose Route Start Last Admin Trade Name Freq PRN Reason Stop Dose Admin Acetaminophen 1,000 mg 03/16/24 12:30 03/16/24 12:38 Acetaminophen 1,000mg/100ml Vial IV 03/16/24 12:31 1,000 mg ONCE ONE Administration Diphenhydramine HCl 12.5 mg 03/16/24 12:30 03/16/24 12:39 Diphenhydramine 50mg/Ml Vial IVP 03/16/24 12:31 12.5 mg ONCE ONE Administration Sodium Chloride 500 mls @ 999 mls/hr 03/16/24 12:30 03/16/24 12:43 Sod Chlor 0.9% 1000ml Bag IV 03/16/24 13:00 999 mls/hr .Q31M ONE Administration Ketorolac Tromethamine 15 mg 03/16/24 12:30 03/16/24 12:38 Ketorolac 30mg/Ml Vial IV 03/16/24 12:31 15 mg ONCE ONE Administration Metoclopramide HCl 5 mg 03/16/24 12:30 03/16/24 12:39 Metoclopramide Hcl 10mg/2ml Vial IVP 03/16/24 12:31 5 mg ONCE ONE Administration Sodium Chloride 10 ml 03/16/24 11:50 Sodium Chloride 0.9% 10ml Flush Syringe IV 04/15/24 11:49 NEEDED PRN Maintain IV Site ORDERS Category Date Time Status CT abdomen pelvis wo con Stat Cat Scan 03/16/24 12:[address] head/brain wo con Stat Cat Scan 03/16/24 12:26 Completed Complete Blood Count Auto Diff Stat Lab 03/16/24 11:44 Completed Comprehensive Metabolic Panel Stat Lab 03/16/24 11:44 Completed Magnesium Stat Lab 03/16/24 11:44 Completed PHOS [Phosphorous] Stat Lab 03/16/24 11:44 Completed Rapid PCR Covid and Flu A/B Stat Lab 03/16/24 12:32 Completed T4 (Thyroxine) Stat Lab 03/16/24 11:44 Completed TSH [Thyroid Stimulating Hormone] Stat Lab 03/16/24 11:44 Completed Trop I [Troponin I] Stat Lab 03/16/24 11:44 Completed Troponin I Q3H Lab 03/16/24 14:30 Completed Troponin I Q3H Lab 03/16/24 18:00 Ordered UA [Urinalysis and Microscopic] Stat Lab 03/16/24 13:36 Completed VBG [Venous Blood Gas] Stat RT 03/16/24 12:27 Completed ECG Data Tracing #1: I reviewed this ECG and interpreted as documented below: Normal sinus rhythm with a ventricular rate of 73 bpm. Q waves present in leads II and aVF. No acute STEMI. Normal axis and intervals. No significant changes from prior EKG ECG initial impression date: 03/16/24 ECG initial impression time: 11:41 Medical Decision Narrative: In summary, this patient is a 68-year-old male presenting to the Emergency Department for evaluation of lightheadedness, headache, high heart rate, nausea. He also notes constipation and no bowel movement. Differential diagnoses considered include but are not limited to blood pressure medication adverse reaction, orthostatic hypotension, dehydration, ANTONY, electrolyte derangements, ACS, CVA, bowel obstruction, ileus. Ruling out the most morbid conditions drove assessment. It should be noted patient's history includes CKD, BPH which may or may not be at goal therapy. This complicates all aspects of care by increasing patient's risk for morbidity. I reviewed patient's past medical records and noted recent admission for ANTONY in the setting of diarrhea as detailed in HPI. He was discharged yesterday. He states he was doing better today until he took his blood pressure medication.. On exam, the patient is lying in bed. He is tired appearing and was like he does not feel well, but he is in no acute distress. He has no focal neurologic deficits. Cardiopulmonary and abdominal exams are benign. Vitals are normal on cardiac telemetry. Workup included broad lab evaluation to evaluate for infectious, metabolic, cardiac causes of his symptoms as well as CT head without contrast, CT abdomen without contrast.. I independently interpreted CT head and CT abdomen prior to the radiologist read and noted no obvious intracranial hemorrhage or space-occupying lesion, no obvious bowel obstruction. Please see their read for final interpretation. Labs were obtained that demonstrated stable labs without significant changes. Kidney functions actually improved from discharge. Troponin negative. Patient was given a bolus of IV fluids, IV Reglan, IV Toradol, IV acetaminophen for symptomatic improvement of the headache and symptoms. Orthostatic vital signs were obtained which did not demonstrate any significant drop in blood pressure, but the heart rate does increase pretty dramatically with going from sitting to standing. Will continue to monitor the patient. On reassessment, patient had great improvement after administration of interventions above. Ultimately, I feel he is feeling a lot better. Labs show improvement from discharge. Troponins negative x 2. CT scan of the head without contrast does not demonstrate any acute pathology, and CT abdomen/pelvis does not demonstrate any obstructive process. Contrast was not given given CKD and contrast allergy. Ultimately, symptoms have improved, vitals are stable, and workup is been very reassuring. I discussed with patient admission versus discharge given his symptoms and recent discharge from the hospital, and he states he would rather try going home. Advised him that this could be a manifestation of restarting his blood pressure medication, as his blood pressure is on the low end and he does have orthostasis. He was given instructions to hold his blood pressure medication and keep a log of his blood pressures at home as well as follow-up closely with his primary care provider. His blood pressure and heart rate responded well to fluids that were given here. Ultimately patient was deemed to be appropriate for discharge home with plan as above. Strict return precautions were given as well as instructions for very close follow-up. Critical Care Critical Care Time Critical Care Time: No
[2024-03-16 13:39] LABS: Microscopic, Urine URINE MICROSCOPIC (MICROSCOPIC)
[2024-03-16 13:44] LABS: Appearance,Urine CLEAR (Clear); Bilirubin,Urine Negative (Negative); Blood, Urine Negative (Negative); Color,Urine YELLOW (Yellow); Glucose,Urine (UA) Negative (Negative); Ketones,Urine Negative (Negative); Leukocyte Esterase,Urine Negative (Negative); Nitrate,Urine Negative (Negative); Protein,Urine Negative (Negative); Urobilinogen,Urine 0.2 EU/dl (0.2)
[2024-03-16 14:02] LABS: Bacteria,Urine Trace /lpf; Squamous Epithelial Cell,Urine Occasional #/hpf (0-5)
--- NOTE | 2024-03-16 14:25 | PC.NURSE ---
DR REGALADO AT BEDSIDE TO REEVALUATE PT
[2024-03-16 15:10] LABS: Troponin I < 0.01 ng/ml (0.00-0.034)
== END 2024-03-16 15:43 | disposition home or self-care (01) ==
PROVIDERS: Emergency Provider Emergency Medicine; PCP Family Medicine
DX: R00.0 Tachycardia, unspecified (principal); N18.9 Chronic kidney disease, unspecified; I95.1 Orthostatic hypotension; R53.1 Weakness; R25.9 Unspecified abnormal involuntary movements; R51.9 Headache, unspecified; R42 Dizziness and giddiness; R11.0 Nausea
CPT/HCPCS: 70450; 74176; 80053; 81001; 82803; 83735; 84100; 84436; 84443; 84484; 85025; 87636; 93005; 96361; 96374; 96375; 99284; J0131; J1200; J1885; J2765; J7030

== ENCOUNTER 2024-06-05 10:52 | Outpatient (CLI) | payer MEDICARE, OTHER, SELFPAY ==
--- NOTE | 2024-06-05 10:58 | XR_ITS ---
FINAL REPORT TECHNIQUE: Cervical spine 4 views CLINICAL HISTORY: RADICULOPATHY COMPARISON: None FINDINGS: CERVICAL SPINE: AP, 2 laterals and odontoid views of the cervical spine were obtained. There is no prior exam for comparison. There is no acute fracture or malalignment. There is moderate advanced disc space narrowing at the C5-6 and C6-7 levels. Vertebral body height is preserved. The precervical soft tissues are normal. IMPRESSION: Disc space narrowing at the C5-6 and C6-7 levels, without acute bony abnormality. Reviewed, Interpreted and Dictated by Fritz Danielle MD Transcribed by Diana Rose Authenticated and [facility]
== END 2024-06-05 23:59 | disposition home or self-care (01) ==
PROVIDERS: PCP Family Medicine; Visit Provider Family Medicine
DX: M54.12 Radiculopathy, cervical region (principal)
CPT/HCPCS: 72040

== ENCOUNTER 2024-07-26 10:00 | Outpatient (RCR) | payer MEDICARE, OTHER, SELFPAY | END 2024-07-26 23:59 | disposition home or self-care (01) | LOC: PT 10:00 | PROVIDERS: PCP Family Medicine; Visit Provider Family Medicine | DX: M54.12 Radiculopathy, cervical region (principal) | CPT/HCPCS: 97012; 97014; 97110; 97140; 97163; G0283 ==

== ENCOUNTER 2024-08-16 10:00 | Outpatient (RCR) | payer MEDICARE, OTHER, SELFPAY | END 2024-08-16 23:59 | disposition home or self-care (01) | LOC: PT 10:00 | PROVIDERS: PCP Family Medicine; Visit Provider Family Medicine | DX: M54.12 Radiculopathy, cervical region (principal) | CPT/HCPCS: 97012; 97014; 97110; G0283 ==

== ENCOUNTER 2025-01-19 18:35 | Emergency (ER) | payer MEDICARE, OTHER, SELFPAY ==
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
--- OUTSIDE RECORDS SUMMARY | 2024-07-11 05:45 | XMS_ITS ---
[facility] [address] [facility] [address] [facility] [address] [id number] Care Team Providers Care Rewind Operator Name Role Phone Anand Rogers Unavailable [phone] Rancho Holt Unavailable [phone] Allergies No Known Allergies REASON FOR VISIT physical, Needs labs with PSA, colon cancer screening, & Prevnar vaccine Encounters Encounter Location Date Provider Diagnosis Tia [address] [facility] [address] [facility] [address] [id number] 07/11/2024 Rancho Holt Plan Of Treatment No Information Progress Notes * ELY SALAZARDOB:[birth year] (69 yo M)Acc No.[id number]:07/11/2024 Annual Wellness Visit Patient: ELY FREEMAN Provider: Rancho Holt M.D. :1955 A ge:68 Y S ex:Male Date:07/11/2024 Address:[address] [place] [address] [id number] Subjective: * Chief Complaints: * 1 . Physical. 2. Needs labs with PSA, colon cancer screening, & Prevnar vaccine. * HPI: H PI: 68 year old male presents with c/o Patient is here today for?Pt is here today for a physical. * ROS: D ERMATOLOGY: no R leroy. n o H sandra. G ASTROENTEROLOGY: no N ausea. n o V omiting. U ROLOGY: no D ifficulty urinating. n o B lood in urine. * Medical History: Martha matthew [place] primary [place] at the [place], kidney disease Stage 3 - NO DYES, Depression, Hypertension, DVT Right Leg, Lung spots, Renal cyst, scarred R kidney, Osteopenia, Diverticulosis, BPH, Duodenal ulcer, Hematuria/ Cystoscopy, Gout, Bulging Lumbar Disc, Protien C and S activity, Protien S antigen, Broken R ankle - Medial Malleous, Broken L ankle - surgery repair, Broken Colarbone. * Surgical History: L eft Ankle Repair 2004, Colonoscopy 2003, 2012, 2013, 2014, Para- Thyroid Surgery 2016, Chalazia and Gland Cyst Removal - bilateral May 2017, R Cataract 2017, L Cataract Removal Mar 24, 2018, Pre-Cancer Lesion Removals Mar 2018. * Hospitalization/Major Diagno stic Procedure: D iverticulitis [place] 2015. * Family History: F ather: 45 yrs, family history unknown . M other: alive 85 yrs, diagnosed with Heart Disease. C hildren: [...] P ast smoking status: never smoked. * Allergies: N .K.D.A. Objective: * Vitals: Assessment: Plan: * Treatment: * Images: Billing Information: * Visit Code: * Procedure Codes: * Electronic signature of Rancho Holt MD on 01/19/2025 at 07:00 PM EDT Sign off status: Pending * Provider: Rancho Holt M.D. Date: 0 07/11/2024 Generated for Krista demarco/Jesusita/Jinny on: 07:00 PM EDT History and Physical Notes * HPI (History of Present Illness) Category Sub-Category Detail Notes Category Not es HPI Patient is here today for Pt is here toda y for a physical
[2025-01-19] VITALS (8 sets, daily range): BP systolic 133–162; BP diastolic 88–102; PULSE 54–75; RESP 13–23; TEMP 37; O2SAT 93–100; BMI 48.2
--- OUTSIDE RECORDS SUMMARY | 2025-01-19 19:00 | XMS_ITS | Data Portability ---
Author Organization [facility], [facility] Address [address] [place] [address] Assessment No assessment recorded. Plan of Treatment Reminders Order Date Submit Date Provider Last Modified By Organization Details Last Modified Time Details Appointments None recorded. Lab rapid strep group A, throat 2022 023 [facility], [address], [place], [address], 10:47:27 Referral None recorded. Procedures None recorded. Surgeries None recorded. Imaging None recorded. Medication Orders amoxicilli n 875 mg-potassi um clavulanat e 125 mg tablet 2022 023 [facility], [address], [place], [address], 10:41:55 Patient TargetsNo targets recorded. Patient InstructionsNo instructions recorded. Reason for Referral None Reported. Results Created Date Observation Date Name Description Value Unit Range Abnormal Flag Note LastModifiedBy Organization Detail LastModifiedTime 10/09/1910/08/2022 rapid strep group A, throa t Strep negati ve Not Available [facility] [address], [place], [address], 10/08/2022 10:41:57 Result Notes None recorded. Problems Name Problem SNOMED Code Status Onset Date Resolution Date Notes Provider Name and Address Organization Details Recorded Time Deep venous thrombosis 616210159 Completed 202210/08/2022 Kavya barfield, [facility] 07/13/202 3 09:37:23 Depressive disorder 01917471 Active 2022 [facility] 3 09:37:39 Gout 34516669 Active 2022 [facility] 3 09:37:46 Gastroesoph ageal reflux disease 311317460 Active 2022 [facility] 3 09:37:55 Hypercholes terolemia 77839311 Active 2022 [facility] 3 09:38:07 Hypertensiv e disorder 60277113 Active 2022 [facility] 3 09:38:21 Benign prostatic hyperplasia 647511482 Completed 202210/08/2022 [facility] 3 09:39:14 Ulcer of duodenum 25622716 Completed 202210/08/2022 [facility] 3 09:40:04 Problem Notes None recorded. Procedures Surgical History Date Name Laterality Status Provider Name and Address Organization Details Recorded Time procedure on tonsils completed [facility] 10/08/2022 09:39:43 Imaging Results None recorded. Procedure Notes None recorded. Medical Equipment None Reported. Allergies No known drug allergies Medications Name Sig Start Date Stop Date Status Note LastModified by Organization Details LastModified Time Prilosec 40 mg capsule,geovanni yed release Take 1 capsule every day by oral route. active Not Available Not Available No t Available allopurinol 100 mg tablet Take 1 tablet every day by oral route. active Not Available Not Available No t Available terazosin 2 mg capsule Take 1 capsule every day by oral route. active Not Available Not Available No t Available Prozac 20 mg capsule Take 1 capsule every day by oral route. active Not Available Not Available No t Available pravastatin 20 mg tablet Take 1 tablet every day by oral route. active Not Available Not Available No t Available oxybutynin chloride 5 mg tablet Take 1 tablet twice a day by oral route. active Not Available Not Available No t Available lisinopril 40 mg tablet Take 1 tablet every day by oral route. active Not Available Not Available No t Available finasteride 5 mg tablet Take 1 tablet every day by oral route. active Not Available Not Available No t Available amoxicillin 875 mg-potassium clavulanate 125 mg tablet Take 1 tablet every 12 hours by oral route. 2022 active Not Available Not Available Not Avai lable Prilosec OTC 20 mg tablet,delay ed release Take by oral route. 10/08 completed Not Available Not Available Not Available melatonin 5 mg capsule Take by oral route. active Not Available Not Available No t Available apixaban 2.5 mg tablet Take 1 tablet twice a day by oral route. active Not Available Not Available No t Available cholecalcife rol (vit D3) 1,000 unit-vitamin K2 (MK4) 100 mcg tablet Take by oral route. active Not Available Not Available No t Available Vitals Date Recorded Body height Body mass index (BMI) Body weight Body temperature Heart rate Respiratory rate Oxygen saturation Oxygen saturation in Arterial blood by Pulse oximetry Systolic And Diastolic Provider Name and Address Organization Details Last Updated DateTime 3 182.88 cm 34.4 kg/m2 892646. 03 g 96 [degF] 109 /min 20 /min 98 % 98 % 138/96 mm[Hg] [facility] 3 09:43:05 Social History Question Answer Notes LastModified by Organizat ion Details LastModified Time Tobacco Smoking Status Never Smoker [facility] 10/08/2022 09:39:26 What Was The Date Of Your Most Recent Tobacco Screening? 10/08/2022 [email or web address] Information not available 10/08/2022 Sex: Male Functional Status None recorded. Mental Status None recorded. Family History Nothing Reported. Medical History No medical history recorded. Past Encounters Encounter ID Performer Location Encounter Start Date Encounter Closed Date Diagnosis/Indication Diagnosis SNOMED-CT Code Diagnosis ICD10 Code Diagnosis IMO Codes Diagnosis Note [id number] Kelly Lamar NP [facility] [address] [place] [address] 10/08/2022 09:13:11 10/08/2022 09:55:06 Acute sinusitis 78143988 J01.90 augmentinf lonasemuci nexincreas e fluidstyle nol or motrin as needed for pain or fevers as directed on the bottlesfu prn new or worsening sx Acute pharyngitis 910605 003 J02.9 centor score 2no culture sent Health Concerns Section Related Observation LastModified by Organization Detai ls LastModified Time None Recorded Concern Status LastModified by Organization Details LastModified Time None Recorded Advance Directives Directive None Recorded Payers Insurance Date Sequence Insurance Name Policy Number Policy Cohen Covered Member ID Cohen Member ID Guarantor Name 08/17/2024 1 MEDICARE B-IN: [facility] Jem Salazar [id number] Jem Salazar 08/17/2024 MEDICARE A-IN: [facility] - [id number] [facility] Jem Salazar [id number] Jem Salazar 08/17/2024 MEDICARE A-IN: [facility] - [id number] [facility] Jem Salazar [id number] Jem Salazar 08/17/2024 2 FOR LIFE () Jem Salazar [id number] Jem Salazar Notes Date Note Type Note Provider Name and Address Organization Details Recorded Time 10/08/2022 text/html Sore ThroatRepor monique by Patient Ear Pain Brief HPIReported by Patient pt states wednesday night left ear began to hurt. woke up yesterday woke up with sore throat. pt states has had chills. sinus pressure between eyes and upper teeth are killing me . pt states with symptoms like that he usually has a sinus infection.is here on vacation and leaves to go home on wednesday. Kelly Lamar, [facility] [address], [place], [address], [place] [facility] 10/08/2022 10:43:36
--- OUTSIDE RECORDS SUMMARY | 2025-01-19 19:01 | XMS_ITS | Data Portability ---
Author Organization [facility] Address [address] [place] [address] Care Team Providers Care Corporate Technical Recruiter Name Role Phone [facility] (MEDICAL RECORDS) Jenny hilliard Provider Assessment Encounter Date Assessment Date Assessment LastModified by Organization Details LastModified Time 01/30/2022 01/30/2022 Mr. Salazar has a sinus infection that will be treated. Covid testing has been negative this week. is vaccines are basically up to date. Not available 02/01/2022 22:31:36 11/06/2022 11/06/2022 Todd has a significant UTI that began with some hematuria and significant difficulty urinating with very small amounts and frequency. They were travelling so went to an ER in [place] where he was diagnosed with UTI and given Macrobid. However his UTI symptoms are more consistent with Pyelonephritis with the fevers so a bacteriostatic antibacterial agent will not work but perhaps it has calmed his symptoms slightly as he urinates better. We were able to contact the facility and he has a Proteus Mirabilis infection sensitive to aminoglycosides, some cephalosporins, trimethoprim/sulfa methoxazole and levofloxacin. We actually have a stock supply of the sulfa drug to give him for a full week course and he also receives an injection of Gentamicin. He is cautioned about stopping the antibiotic should any suspicion of allergic reaction begin. Adequate hydration is necessary as he already has a history of chronic kidney disease with a smaller atrophic right kidney. Not available 11/08/2022 14:09:29 01/08/2023 01/08/2023 Mr Salazar presents for a wellness check up. He is followed now by the ID and gets his medications through that entity. He recently had a significant urinary tract infection and is being more diligent now with water intake. He is treated for benign prostatic hypertrophy with alpha joanne(terazosin) , anti-cholinergic(O xybutynin) and an alpha-reductase inhibitor(Finaster elmo). PSA levels have remained normal. diagnosed with CKD stage 3 as well as hyperparathyroidis m. He had a parathyroid adenoma removed previously and there has been no evidence for recurrence of an adenoma so the present PTH elevation is secondary now to the chronic kidney disease. His BP has been stable. He states that the pressure is better at other times when monitored at home. He is seeing nephrology at ID. He has been having recurrent and increasingly frequent and significant right upper quadrant pains that stop him as they are severe when they occur. He has known cholelithiasis. We recommend he have the gall bladder removed since he is having symptoms. We continue to encourage healthy diet such as the DASH protocol along with regular exercise. Depression screen is negative and he chooses to continue the low dose Fluoxetine. His coumadin anticoagulation was changed to Eliquis and that has been much easier. He has had documented protein C and S deficiencies and therefore a tendency for thrombosis. He has a history of DVT. Medications are reconciled. Vaccines seem to be up to date and he receives the Prevnar 20 today. A ten year calculated cardiovascular risk is 13.64%. We continue to encourage healthy lifestyle choices. sally Not available 01/10/2023 23:41:21 01/21/2024 01/21/2024 Mr Salazar presents for a wellness check up. He is followed now by the ID and gets his medications through that entity. He underwent a cholecystectomy through [facility] with Dr. North Guzman last January. He is treated for benign prostatic hypertrophy with alpha joanne(terazosin) , anti-cholinergic (Oxybutynin) and an alpha-reductase inhibitor(Finaster elmo). PSA levels have remained normal. 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 He had a parathyroid adenoma removed previously and there has been no evidence for recurrence of an adenoma on repeated scans. They have also obtained a bone density study per their documentation but we have not seen the results of that. He has a follow up soon likely with a repeat renal ultrasound as they are concerned about a possible circulation issue with the right kidney as it is small and atrophic. There is a small left renal cyst. He has been having some issues with the right knee. 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 There may also be some underlying arthritis. An orthopedist can drain the cyst and it is reasonable for him to see someone for this through the ID. In the meantime we recommend he consider Voltaren gel and knee exercises and stretches. We continue to encourage healthy diet such as the DASH protocol along with regular exercise. Depression screen is negative and he chooses to continue the low dose Fluoxetine. His coumadin anticoagulation was changed to Eliquis and that has been much easier. He has had documented protein C and S deficiencies and therefore a tendency for thrombosis. He has a history of DVT. Medications are reconciled. Since he is not really having acid reflux symptoms he could consider trying to cut the omeprazole from 40 to 20 mg. Vaccines seem to be up to date and he receives the annual flu vaccine today. A ten year calculated cardiovascular risk is 12.93%. We continue to encourage healthy lifestyle choices. sally Not available 01/24/2024 09:28:47 06/01/2024 06/01/2024 Mr. Salazar has had an eventful past three months with intermittent cardiac symptoms that ultimately led to a full cardiac work up at the ID and a heart catheterization last week resulting in a stent to the right coronary artery. He has had medication changes which were reviewed. His presenting symptoms were rather atypical with hypotension and near syncope and shortness of breath with activities. He had some left arm numbness intermittently [facility] well [facility] His statin was increased from 20 to 80 mg of Lipitor appropriately. The lisinopril and terazosin were discontinued and he had aspirin and plavix added last week after the stent placement. He continues with the Eliquis for the protein S and C deficiencies with history of venous thrombosis. He continues to be followed at the ID for chronic kidney disease which is stable. We suspect his cardiac work up was so spread out because of the CKD to avoid excessive contrast studies back to back. However for at least 3 weeks he has been having persistent left arm numbness and tingling into all the fingers along with sharp left scapular area pains. These symptoms do interfere with sleep and are very annoying during the day. He did not think he lost strength on the left but clearly has loss with lumbrical testing of the left hand as compared with the right hand. 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 We will start with a plain film and a brief course of corticosteroids for inflammation along with gabapentin to try to calm down the nerve discomfort at night. We did review his chart and in 2022 after an accident he did have a cervical CT scan at [facility] which did show evidence for degenerative disc disease especially at C 5-6 and C 6-7 with osteophyte disc complexes. We discussed that the majority of cervical radiculopathy cases do resolve with time and do not typically require surgery. We typically recommend physical therapy for this but since he just had the cardiac cath we suspect they will place him in a cardiac rehab and we want the accounts executive to clear him before any physical therapy. We can follow up this problem in the near future and expect it will take a few months to resolve. sally Not available 06/02/2024 09:01:36 Plan of Treatment Reminders Order Date Submit Date Provider Last Modified By Organization Details Last Modified Time Details Appointments MEDICARE WELLNESS ANNUAL VISIT 2024 02:30P Brad Joaquin MD Not available Not available Not available Lab urinalys is, dipstick 2022 023 frida 5 [facility], [address] [place], [address], 11/06/2022 15:56:14 Referral general surgeon referral 2022 023 frida 5 [facility], [address], [facility] [address], [place], [address], 02/05/2023 08:56:30 Procedures None recorded . Surgeries None recorded . Imaging XR, cervical spine, 2 or 3 view 2024 025 [facility] (X-Ray), [facility] [address], [place], [address], 06/05/2024 12:27:09 Medication Orders gabapent in 100 mg capsule 2024 025 [id number], [address] [address] , [place], [place], [id number], 06/01/2024 17:18:04 methylpr ednisolo ne 4 mg tablets in a dose pack 2024 025 [facility] #[id number], [address] [address] [facility] [address], [place], [place], [id number], 06/01/2024 17:18:08 gentamic in 40 mg/mL injectio n solution 2022 023 [facility], [address] [place] [address], [address], 01/08/2023 10:32:38 sulfamet hoxazole 800 mg-trime thoprim 160 mg tablet 2022 023 [facility], [address] [place] [address], [address], 01/08/2023 10:33:01 amoxicil servando 875 mg-potas sium clavulan ate 125 mg tablet [email or web address] [facility] [address] [facility][id number], [address], [place], [place], [id number], 11/06/2022 15:55:04 ceftriax one 1 gram solution for injectio n 2021 022 [facility], [address] [place] [address], [address], 11/06/2022 15:55:07 dexameth asone sodium phosphat e 4 mg/mL injectio n solution 2021 022 Not available 11/06/2022 16:25:38 methylpr ednisolo ne 4 mg tablets in a dose pack 2021 022 [id number], [address] , [place], [place], [id number], 06/01/2024 16:55:56 Patient TargetsNo targets recorded. Patient Instructions Encounter Date Encounter Id Patient Instructions Last Modified By Organization Details Last Modified Time 01/08/2023 [id number] learning about healthy weight Not available 01/08/2023 11:26:13 01/21/2024 [id number] taking direct or al anticoagulants safely: care instructions Not available 01/23/2024 16:14:40 piedra's cyst: ca re instructions Not available 01/21/2024 15:42:52 knee: exercises Not available 01/21/2024 15:42:52 knee arthritis: exercises Not available 01/21/2024 15:42:52 learning about healthy weight Not available 01/23/2024 16:14:40 06/01/2024 [id number] pinched nerve in the neck: care instructions Not available 06/01/2024 17:17:58 neck: exercises Not available 06/01/2024 17:17:57 Reason for Referral General Surgeon Referral for Cholelithiasis without obstruction Referring Physician: Janet Joaquin, Family Medicine, Encounter Date: 01/08/2023 Results Created Date Observation Date Name Description Value Unit Range Abnormal Flag Note LastModifiedBy Organization Detail LastModifiedTime 11/07/1911/06/2022 urina lysis , dipst ick Leukocytes Large Not Available [facility] [address] [place], [address], 11/06/2022 15:55:49 11/07/19 23 11/06/2022 urina lysis , dipst ick Nitrite negati ve Not Available [facility] [address] [place], [address], 11/06/2022 15:55:49 11/07/19 23 11/06/2022 urina lysis , dipst ick Urobilinogen .2 Not Available [facility] [address] [place], [address], 11/06/2022 15:55:49 11/07/19 23 11/06/2022 urina lysis , dipst ick Protein 100 Not Available [facility] [address] [place], [address], 11/06/2022 15:55:49 11/07/19 23 11/06/2022 urina lysis , dipst ick pH 6.0 Not Available [facility] [address] [place], [address], 11/06/2022 15:55:49 11/07/19 23 11/06/2022 urina lysis , dipst ick Blood Modera te Not Available [facility] [address] [place], [address], 11/06/2022 15:55:49 11/07/19 23 11/06/2022 urina lysis , dipst ick Specific Culver 1.025 Not Available [facility] [address] [place], [address], 11/06/2022 15:55:49 11/07/19 23 11/06/2022 urina lysis , dipst ick Ketone Negati ve Not Available [facility] [address] [place], [address], 11/06/2022 15:55:49 11/07/19 23 11/06/2022 urina lysis , dipst ick Bilirubin Negati ve Not Available [facility] [address] [place], [address], 11/06/2022 15:55:49 11/07/19 23 11/06/2022 urina lysis , dipst ick Glucose Negati ve Not Available [facility] [address] [facility], [address], 11/06/2022 15:55:49 12/30/1912/30/2022 LIPID PANEL , STAND DEMIAN cholesterol, total 157 mg/dL <200 normal Not Available [facility] [address], [place], [address], 12/30/2022 08:48:38 12/30/1912/30/2022 LIPID PANEL , STAND DEMIAN HDL cholesterol 44 mg/dL > or = 40 normal Not Available [facility] [address] [facility], [place], [address], 12/30/2022 08:48:38 12/30/1912/30/2022 LIPID PANEL , STAND DEMIAN triglyceride s 127 mg/dL <150 normal Not Available [facility] [address], [place], [address], 12/30/2022 08:48:38 12/30/1912/30/2022 LIPID PANEL , STAND DEMIAN LDL-choleste rol 91 mg/dL _(marysol c) normal Refer ence range : <100 Fidel able range <100 mg/dL for prima ry preve ntion ; <70 mg/dL for patie nts with CHD or diabe tic patie nts with > or = 2 CHD risk facto rs. LDL-C is now calcu lated using the Angelita gutierrez-Hop kins yuryu nini n, which is a valid ated novel ashoko d claudette magallanes r accur acy than the Fried marleni equat ion in the estim ation of LDL-C . Angelita gutierrez SS et al. ADRIANE. 2013; 310(1 9): 2061- 2068 (http ://ed karlaati on.Qu Evan adame Variab.lys. com/f aq/FA Q164) Not Available [facility] [address], [place], [address], 12/30/2022 08:48:38 12/30/1912/30/2022 LIPID PANEL , STAND DEMIAN chol/HDLC ratio 3.6 (calc ) <5.0 normal Not Available [facility] [address] [facility] [place], [address], 12/30/2022 08:48:38 12/30/1912/30/2022 LIPID PANEL , STAND DEMIAN non HDL cholesterol 113 mg/dL _(marysol c) <130 normal For patie nts with diabe angelita plus 1 major ASCVD risk facto r, treat ing to a non-H DL-C goal of <100 mg/dL (LDL- C of <70 mg/dL ) is consi judy a jacey webb c optio n. Not Available [facility] [address] [place], [address], 12/30/2022 08:48:38 12/30/1912/30/2022 COMPR EHENS MIGEL METAB OLIC PANEL glucose 92 mg/dL 65-99 normal Fasti ng refer ence inter suleman Not Available [facility] [address] [place], [address], 12/30/2022 08:48:39 12/30/1912/30/2022 COMPR EHENS MIGEL METAB OLIC PANEL urea nitrogen (BUN) 28 mg/dL 7-25 high Not Available [facility] [address] [place], [address], 12/30/2022 08:48:39 12/30/1912/30/2022 COMPR EHENS MIGEL METAB OLIC PANEL creatinine 1.76 mg/dL 0.70-1 .35 high Not Available [facility] [address] [place], [address], 12/30/2022 08:48:39 12/30/1912/30/2022 COMPR EHENS MIGEL METAB OLIC PANEL eGFR 42 mL/mi n/1.7 3m2 > or = 60 low Not Available [facility] [address] [facility] [place], [address], 12/30/2022 08:48:39 12/30/1912/30/2022 COMPR EHENS MIGEL METAB OLIC PANEL BUN/creatini ne ratio 16 (calc ) 6-22 normal Not Available [facility] [address] [facility] [place], [address], 12/30/2022 08:48:39 12/30/1912/30/2022 COMPR EHENS MIGEL METAB OLIC PANEL sodium 141 mmol/ L 135-14 6 normal Not Available [facility] [address] [facility] [place], [address], 12/30/2022 08:48:39 12/30/1912/30/2022 COMPR EHENS IMGEL METAB OLIC PANEL potassium 4.3 mmol/ L 3.5-5. 3 normal Not Available [facility] [address] [facility] [place], [address], 12/30/2022 08:48:39 12/30/1912/30/2022 COMPR EHENS MIGEL METAB OLIC PANEL chloride 110 mmol/ L 98-110 normal Not Available [facility] [address] [facility] [place], [address], 12/30/2022 08:48:39 12/30/1912/30/2022 COMPR EHENS MIGEL METAB OLIC PANEL carbon dioxide 24 mmol/ L 20-32 normal Not Available [facility] [address] [facility] [place], [address], 12/30/2022 08:48:39 12/30/1912/30/2022 COMPR EHENS MIGEL METAB OLIC PANEL calcium 9.1 mg/dL 8.6-10 .3 normal Not Available [facility] [address] [facility] [place], [address], 12/30/2022 08:48:39 12/30/1912/30/2022 COMPR EHENS MIGEL METAB OLIC PANEL protein, total 6.9 g/dL 6.1-8. 1 normal Not Available [facility] [address] [facility] [place], [address], 12/30/2022 08:48:39 12/30/1912/30/2022 COMPR EHENS MIGEL METAB OLIC PANEL albumin 4.0 g/dL 3.6-5. 1 normal Not Available [facility] [address] [facility] [place], [address], 12/30/2022 08:48:39 12/30/1912/30/2022 COMPR EHENS MIGEL METAB OLIC PANEL globulin 2.9 g/dL_ (calc ) 1.9-3. 7 normal Not Available [facility] [address] [facility] [place], [address], 12/30/2022 08:48:39 12/30/1912/30/2022 COMPR EHENS MIGEL METAB OLIC PANEL albumin/glob ulin ratio 1.4 (calc ) 1.0-2. 5 normal Not Available [facility] [address] [place], [address], 12/30/2022 08:48:39 12/30/1912/30/2022 COMPR EHENS MIGEL METAB OLIC PANEL bilirubin, total 0.3 mg/dL 0.2-1. 2 normal Not Available [facility] [address] [facility] [place], [address], 12/30/2022 08:48:39 12/30/1912/30/2022 COMPR EHENS MIGEL METAB OLIC PANEL alkaline phosphatase 57 U/L 35-144 normal Not Available [facility] [address] [facility] [place], [address], 12/30/2022 08:48:39 12/30/1912/30/2022 COMPR EHENS MIGEL METAB OLIC PANEL AST 21 U/L 10-35 normal Not Available [facility] [address] [facility], [place], [address], 12/30/2022 08:48:39 12/30/1912/30/2022 COMPR EHENS MIGEL METAB OLIC PANEL ALT 18 U/L 9-46 normal Not Available [facility] [address] [facility], [place], [address], 12/30/2022 08:48:39 12/30/1912/30/2022 URIC ACID uric acid 8.2 mg/dL 4.0-8. 0 high Thera peuti c targe t for gout patie nts: <6.0 mg/dL Not Available [facility] [address] [facility], [place], [address], 12/30/2022 08:48:40 12/30/1912/30/2022 TSH TSH 3.47 mIU/L 0.40-4 .50 normal Not Available [facility] [address] [facility] [place], [address], 12/30/2022 08:48:40 12/30/1912/30/2022 CBC (INCL UDES DIFF/ PLT) white blood cell count 7.4 thous and/u L 3.8-10 .8 normal Not Available [facility] [address] [facility] [place], [address], 12/30/2022 08:48:41 12/30/1912/30/2022 CBC (INCL UDES DIFF/ PLT) red blood cell count 4.38 ivelisse on/uL 4.20-5 .80 normal Not Available [facility] [address] [facility], [place], [address], 12/30/2022 08:48:41 12/30/1912/30/2022 CBC (INCL UDES DIFF/ PLT) hemoglobin 13.1 g/dL 13.2-1 7.1 low Not Available [facility] [address] [facility] [place], [address], 12/30/2022 08:48:41 12/30/1912/30/2022 CBC (INCL UDES DIFF/ PLT) hematocrit 40.4 % 38.5-5 0.0 normal Not Available [facility] [address] [facility] [place], [address], 12/30/2022 08:48:41 12/30/1912/30/2022 CBC (INCL UDES DIFF/ PLT) MCV 92.2 fL 80.0-1 00.0 normal Not Available [facility] [address] [facility] [place], [address], 12/30/2022 08:48:41 12/30/1912/30/2022 CBC (INCL UDES DIFF/ PLT) MCH 29.9 pg 27.0-3 3.0 normal Not Available [facility] [address] [facility] [place], [address], 12/30/2022 08:48:41 12/30/1912/30/2022 CBC (INCL UDES DIFF/ PLT) MCHC 32.4 g/dL 32.0-3 6.0 normal Not Available [facility] [address] [facility] [place], [address], 12/30/2022 08:48:41 12/30/1912/30/2022 CBC (INCL UDES DIFF/ PLT) RDW 14.1 % 11.0-1 5.0 normal Not Available [facility] [address] [facility] [place], [address], 12/30/2022 08:48:41 12/30/1912/30/2022 CBC (INCL UDES DIFF/ PLT) platelet count 209 thous and/u L 140-40 0 normal Not Available [facility] [address], [place], [address], 12/30/2022 08:48:41 12/30/1912/30/2022 CBC (INCL UDES DIFF/ PLT) MPV 10.7 fL 7.5-12 .5 normal Not Available [facility] [address], [place], [address], 12/30/2022 08:48:41 12/30/1912/30/2022 CBC (INCL UDES DIFF/ PLT) absolute neutrophils 4758 cells /uL 1500-7 800 normal Not Available [facility] [address], [place], [address], 12/30/2022 08:48:41 12/30/1912/30/2022 CBC (INCL UDES DIFF/ PLT) absolute lymphocytes 1806 cells /uL 850-39 00 normal Not Available [facility] [address], [place], [address], 12/30/2022 08:48:41 12/30/1912/30/2022 CBC (INCL UDES DIFF/ PLT) absolute monocytes 429 cells /uL 200-95 0 normal Not Available [facility] [address], [place], [address], 12/30/2022 08:48:41 12/30/1912/30/2022 CBC (INCL UDES DIFF/ PLT) absolute eosinophils 348 cells /uL 15-500 normal Not Available [facility] [address], [place], [address], 12/30/2022 08:48:41 12/30/1912/30/2022 CBC (INCL UDES DIFF/ PLT) absolute basophils 59 cells /uL 0-200 normal Not Available [facility] [address] [facility] [place], [address], 12/30/2022 08:48:41 12/30/19 23 12/30/2022 CBC (INCL UDES DIFF/ PLT) neutrophils 64.3 % normal Not Available [facility] [address] [facility] [place], [address], 12/30/2022 08:48:41 12/30/19 23 12/30/2022 CBC (INCL UDES DIFF/ PLT) lymphocytes 24.4 % normal Not Available [facility] [address] [facility], [place], [address], 12/30/2022 08:48:41 12/30/1912/30/2022 CBC (INCL UDES DIFF/ PLT) monocytes 5.8 % normal Not Available [facility] [address] [facility], [place], [address], 12/30/2022 08:48:41 12/30/19 23 12/30/2022 CBC (INCL UDES DIFF/ PLT) eosinophils 4.7 % normal Not Available [facility] [address] [facility], [place], [address], 12/30/2022 08:48:41 12/30/19 23 12/30/2022 CBC (INCL UDES DIFF/ PLT) basophils 0.8 % normal Not Available [facility] [place] [facility] [address] [facility] [place], [address], 12/30/2022 08:48:41 12/30/19 23 12/30/2022 PSA, TOTAL PSA, total 0.32 NG/mL < or = 4.00 normal The total PSA value from this assay mary m is stand ardiz ed again st the WHO stand demian. The test resul t will be appro ximat sheridan 20% lower when hank red to the equim olar- stand ardiz ed total PSA (Degroot man Coult er). Hank rison of seria l PSA resul ts shoul d be inter prete d with this fact in mind. This test was perfo rmed using the [employer] chemi lumin escen t metho d. Value s obtai marla from diffe rent assay metho ds canno t be used inter whitley eably . PSA level s, regar dless of value , shoul d not be inter prete d as absol douglas evide nce of the prese nce or absen ce of disea se. Not Available [facility] [place] [facility] [address] [place], [address], 12/30/2022 08:48:41 01/17/2001/18/2024 LIPID PANEL , STAND DEMIAN cholesterol, total 147 mg/dL <200 normal Not Available [facility] [place] [facility] [address] [facility] [place], [address], 01/18/2024 11:10:56 01/17/20 24 01/18/2024 LIPID PANEL , STAND DEMIAN HDL cholesterol 46 mg/dL > or = 40 normal Not Available [facility] [place] [facility] [address] [facility], [place], [address], 01/18/2024 11:10:56 01/17/2001/18/2024 LIPID PANEL , STAND DEMIAN triglyceride s 121 mg/dL <150 normal Not Available [facility] [place] [facility] [address] [place], [address], 01/18/2024 11:10:56 01/17/2001/18/2024 LIPID PANEL , STAND DEMIAN LDL-choleste rol 79 mg/dL _(marysol c) normal Refer ence range : <100 Fidel able range <100 mg/dL for prima ry preve ntion ; <70 mg/dL for patie nts with CHD or diabe tic patie nts with > or = 2 CHD risk facto rs. LDL-C is now calcu lated using the Angelita n-Hop kins calcu kaminiemperatriz n, which is a valid ated novel ashoko mina villalba acy than the Fried marleni equat ion in the estim ation of LDL-C . Angelita gutierrez SS et al. ADRIANE. 2013; 310(1 9): 2061- 2068 (http ://ed ucati on.Qu estDi 3FLOZs. com/f aq/FA Q164) Not Available [facility] [place] [facility] [address], [place], [address], 01/18/2024 11:10:56 01/17/2001/18/2024 LIPID PANEL , STAND DEMIAN chol/HDLC ratio 3.2 (calc ) <5.0 normal Not Available [facility] [place] [facility] [address], [place], [address], 01/18/2024 11:10:56 01/17/20 24 01/18/2024 LIPID PANEL , STAND DEMIAN non HDL cholesterol 101 mg/dL _(marysol c) <130 normal For patie nts with diabe angelita plus 1 major ASCVD risk facto r, treat ing to a non-H DL-C goal of <100 mg/dL (LDL- C of <70 mg/dL ) is consi emmad a cornela tracey killian optio n. Not Available [facility] [place] [facility] [address], [place], [address], 01/18/2024 11:10:56 01/17/20 24 01/18/2024 COMPR EHENS MIGEL METAB OLIC PANEL glucose 90 mg/dL 65-99 normal Fasti ng refer ence inter suleman Not Available [facility] [place] [facility] [address], [place], [address], 01/18/2024 11:10:56 01/17/20 24 01/18/2024 COMPR EHENS MIGEL METAB OLIC PANEL urea nitrogen (BUN) 22 mg/dL 7-25 normal Not Available [facility] [place] [facility] [address] [place], [address], 01/18/2024 11:10:56 01/17/2001/18/2024 COMPR EHENS MIGEL METAB OLIC PANEL creatinine 1.63 mg/dL 0.70-1 .35 high Not Available [facility] [address] [place], [address], 01/18/2024 11:10:56 01/17/2001/18/2024 COMPR EHENS MIGEL METAB OLIC PANEL eGFR 46 mL/mi n/1.7 3m2 > or = 60 low Not Available [facility] [address] [place], [address], 01/18/2024 11:10:56 01/17/2001/18/2024 COMPR EHENS MIGEL METAB OLIC PANEL BUN/creatini ne ratio 13 (calc ) 6-22 normal Not Available [facility] [address] [place], [address], 01/18/2024 11:10:56 01/17/2001/18/2024 COMPR EHENS MIGEL METAB OLIC PANEL sodium 142 mmol/ L 135-14 6 normal Not Available [facility] [address] [place], [address], 01/18/2024 11:10:56 01/17/20 24 01/18/2024 COMPR EHENS MIGEL METAB OLIC PANEL potassium 4.6 mmol/ L 3.5-5. 3 normal Not Available [facility] [address] [place], [address], 01/18/2024 11:10:56 01/17/2001/18/2024 COMPR EHENS MIGEL METAB OLIC PANEL chloride 108 mmol/ L 98-110 normal Not Available [facility] [address] [place], [address], 01/18/2024 11:10:56 01/17/2001/18/2024 COMPR EHENS MIGEL METAB OLIC PANEL carbon dioxide 27 mmol/ L 20-32 normal Not Available [facility] [address] [facility] [place], [address], 01/18/2024 11:10:56 01/17/2001/18/2024 COMPR EHENS MIGEL METAB OLIC PANEL calcium 9.0 mg/dL 8.6-10 .3 normal Not Available [facility] [address] [place], [address], 01/18/2024 11:10:56 01/17/2001/18/2024 COMPR EHENS MIGEL METAB OLIC PANEL protein, total 6.7 g/dL 6.1-8. 1 normal Not Available [facility] [address] [place], [address], 01/18/2024 11:10:56 01/17/2001/18/2024 COMPR EHENS MIGEL METAB OLIC PANEL albumin 4.0 g/dL 3.6-5. 1 normal Not Available [facility] [address] [place], [address], 01/18/2024 11:10:56 01/17/20 24 01/18/2024 COMPR EHENS MIGEL METAB OLIC PANEL globulin 2.7 g/dL_ (calc ) 1.9-3. 7 normal Not Available [facility] [address] [place], [address], 01/18/2024 11:10:56 01/17/20 24 01/18/2024 COMPR EHENS MIGEL METAB OLIC PANEL albumin/glob ulin ratio 1.5 (calc ) 1.0-2. 5 normal Not Available [facility] [address] [place], [address], 01/18/2024 11:10:56 01/17/20 24 01/18/2024 COMPR EHENS MIGEL METAB OLIC PANEL bilirubin, total 0.6 mg/dL 0.2-1. 2 normal Not Available [facility] [place] [facility] [address] [facility], [place], [address], 01/18/2024 11:10:56 01/17/2001/18/2024 COMPR EHENS MIGEL METAB OLIC PANEL alkaline phosphatase 66 U/L 35-144 normal Not Available [facility] [place] [facility] [address] [facility], [place], [address], 01/18/2024 11:10:56 01/17/2001/18/2024 COMPR EHENS MIGEL METAB OLIC PANEL AST 20 U/L 10-35 normal Not Available [facility] [address] [facility], [place], [address], 01/18/2024 11:10:56 01/17/2001/18/2024 COMPR EHENS MIGEL METAB OLIC PANEL ALT 15 U/L 9-46 normal Not Available [facility] [place] [facility] [address] [facility] [place], [address], 01/18/2024 11:10:56 01/17/2001/18/2024 URIC ACID uric acid 7.2 mg/dL 4.0-8. 0 normal Cornela tracey castillo t for gout patie nts: <6.0 mg/dL Not Available [facility] [place] [facility] [address] [facility], [place], [address], 01/18/2024 11:10:57 01/17/2001/18/2024 TSH TSH 3.71 mIU/L 0.40-4 .50 normal Not Available [facility] [address] [facility] [place], [address], 01/18/2024 11:10:58 01/17/2001/18/2024 CBC (INCL UDES DIFF/ PLT) white blood cell count 6.4 thous and/u L 3.8-10 .8 normal Not Available [facility] [place] [facility] [address] [facility], [place], [address], 01/18/2024 11:10:58 01/17/2001/18/2024 CBC (INCL UDES DIFF/ PLT) red blood cell count 4.45 ivelisse on/uL 4.20-5 .80 normal Not Available [facility] [place] [facility] [address] [facility], [place], [address], 01/18/2024 11:10:58 01/17/2001/18/2024 CBC (INCL UDES DIFF/ PLT) hemoglobin 13.4 g/dL 13.2-1 7.1 normal Not Available [facility] [place] [facility] [address] [facility], [place], [address], 01/18/2024 11:10:58 01/17/2001/18/2024 CBC (INCL UDES DIFF/ PLT) hematocrit 41.9 % 38.5-5 0.0 normal Not Available [facility] [place] [facility] [address] [facility], [place], [address], 01/18/2024 11:10:58 01/17/2001/18/2024 CBC (INCL UDES DIFF/ PLT) MCV 94.2 fL 80.0-1 00.0 normal Not Available [facility] [address] [facility], [place], [address], 01/18/2024 11:10:58 01/17/2001/18/2024 CBC (INCL UDES DIFF/ PLT) MCH 30.1 pg 27.0-3 3.0 normal Not Available [facility] [place] [facility] [address] [facility], [place], [address], 01/18/2024 11:10:58 01/17/2001/18/2024 CBC (INCL UDES DIFF/ PLT) MCHC 32.0 g/dL 32.0-3 6.0 normal For adult s, a sligh t decre ase in the calcu lated MCHC value (in the range of 30 to 32 g/dL) is most likel y not clini poonrima signi fican t; luis e er, it shoul d be inter prete d with cauti on in [facility] n with other red cell xi eters and the patie nt's clini marysol condi tion. Not Available [facility] [place] [facility] [address], [place], [address], 01/18/2024 11:10:58 01/17/2001/18/2024 CBC (INCL UDES DIFF/ PLT) RDW 13.3 % 11.0-1 5.0 normal Not Available [facility] [place] [facility] [address], [place], [address], 01/18/2024 11:10:58 01/17/2001/18/2024 CBC (INCL UDES DIFF/ PLT) platelet count 201 thous and/u L 140-40 0 normal Not Available [facility] [place] [facility] [address], [place], [address], 01/18/2024 11:10:58 01/17/2001/18/2024 CBC (INCL UDES DIFF/ PLT) MPV 10.8 fL 7.5-12 .5 normal Not Available [facility] [place] [facility] [address], [place], [address], 01/18/2024 11:10:58 01/17/2001/18/2024 CBC (INCL UDES DIFF/ PLT) absolute neutrophils 4064 cells /uL 1500-7 800 normal Not Available [facility] [place] [facility] [address], [place], [address], 01/18/2024 11:10:58 01/17/20 24 01/18/2024 CBC (INCL UDES DIFF/ PLT) absolute lymphocytes 1562 cells /uL 850-39 00 normal Not Available [facility] [place] [facility] [address] [facility], [place], [address], 01/18/2024 11:10:58 01/17/20 24 01/18/2024 CBC (INCL UDES DIFF/ PLT) absolute monocytes 429 cells /uL 200-95 0 normal Not Available [facility] [place] [facility] [address], [place], [address], 01/18/2024 11:10:58 01/17/2001/18/2024 CBC (INCL UDES DIFF/ PLT) absolute eosinophils 275 cells /uL 15-500 normal Not Available [facility] [address] [facility], [place], [address], 01/18/2024 11:10:58 01/17/2001/18/2024 CBC (INCL UDES DIFF/ PLT) absolute basophils 70 cells /uL 0-200 normal Not Available [facility] [address] [facility] [place], [address], 01/18/2024 11:10:58 01/17/20 24 01/18/2024 CBC (INCL UDES DIFF/ PLT) neutrophils 63.5 % normal Not Available [facility] [address] [facility], [place], [address], 01/18/2024 11:10:58 01/17/20 24 01/18/2024 CBC (INCL UDES DIFF/ PLT) lymphocytes 24.4 % normal Not Available [facility] [place] [facility] [address] [facility] [place], [address], 01/18/2024 11:10:58 01/17/20 24 01/18/2024 CBC (INCL UDES DIFF/ PLT) monocytes 6.7 % normal Not Available [facility] [place] [facility] [address] [facility] [place], [address], 01/18/2024 11:10:58 01/17/20 24 01/18/2024 CBC (INCL UDES DIFF/ PLT) eosinophils 4.3 % normal Not Available [facility] [place] [facility] [address] [facility], [place], [address], 01/18/2024 11:10:58 01/17/20 24 01/18/2024 CBC (INCL UDES DIFF/ PLT) basophils 1.1 % normal Not Available [facility] [place] [facility] [address] [facility], [place], [address], 01/18/2024 11:10:58 01/17/20 24 01/18/2024 PSA, TOTAL PSA, total 0.21 NG/mL < or = 4.00 normal The total PSA value from this assay syste m is stand ardiz ed again st the WHO stand demian. The test resul t will be appro ximat sheridan 20% lower when hank red to the equim olar- stand ardiz ed total PSA (Degroot man Coult er). Hank rison of seria l PSA resul ts shoul d be inter prete d with this fact in mind. This test was perfo rmed using the [employer] chemi lumin escen t metho d. Value s obtai marla from diffe rent assay metho ds canno t be used inter whitley eably . PSA level s, regar dless of value , shoul d not be inter prete d as absol douglas evide nce of the prese nce or absen ce of disea se. Not Available [facility] [place] [facility] [address] [facility], [place], [address], 01/18/2024 11:10:59 07/16/19 23 07/15/2022 XR, abdom en + pelvi s No observ ation record ed. [facility] [address], [place], [address], 07/30/2022 22:37:29 07/16/19 23 07/15/2022 XR, chest , 2 view No observ ation record ed. [address], [place], [address], 07/31/2022 00:04:08 07/16/19 23 07/15/2022 CT, lumba r spine , w/o contr ast No observ ation record ed. [place] [id number], [place], [id number], 07/31/2022 08:30:47 07/16/19 23 07/15/2022 CT, brain , w/o contr ast No observ ation record ed. [address], [place], [address], 07/31/2022 08:31:18 07/16/19 23 07/15/2022 CT, cervi marysol spine , w/o contr ast No observ ation record ed. [place] [id number], [place], [address], 07/31/2022 08:31:46 07/16/19 23 07/15/2022 CT, thora cic spine , w/o contr ast No observ ation record ed. [place] [id number], [place], [address], 07/31/2022 08:32:14 07/16/19 23 07/15/2022 CT, abdom en + pelvi s, w/ contr ast No observ ation record ed. [place] [id number], [place], [address], 08/01/2022 20:36:38 07/16/19 23 07/15/2022 CT, chest , w/o contr ast No observ ation record ed. [place] [id number], [place], [address], 08/01/2022 20:37:50 07/16/19 23 07/15/2022 XR, knee No observ ation record ed. [address], [place], [address], 08/01/2022 20:38:32 07/18/19 23 07/15/2022 elect gary lantiguagr am No observ ation record ed. [address], [place], [address], 08/01/2022 20:38:59 03/11/20 24 03/11/2024 XR, foot No observ ation record ed. [address], [place], [address], 04/05/2024 22:09:40 03/11/20 24 03/11/2024 XR, ankle No observ ation record ed. [address], [place], [place], [address], 04/05/2024 22:10:12 03/14/20 24 03/14/2024 rhyth m strip , EKG* No observ ation record ed. [address], [place], [address], 04/05/2024 22:10:40 03/14/20 24 03/14/2024 US, doppl er, venou s No observ ation record ed. [address], [place], [address], 04/05/2024 22:11:13 03/16/20 24 03/16/2024 CT, chest , w/o contr ast No observ ation record ed. [address], [place], [address], 04/05/2024 22:11:55 03/16/20 24 03/16/2024 CT, head + brain , w/ contr ast No observ ation record ed. [address], [place], [address], 04/05/2024 22:12:27 03/16/20 24 03/16/2024 rhyth m strip , EKG* No observ ation record ed. [address], [place], [address], 04/05/2024 22:13:02 06/06/19 25 06/05/2024 XR, cervi maryslo spine , 2 or 3 view No observ ation record ed. [address], [place], [address], 06/08/2024 11:14:57 06/30/19 25 05/16/2024 elect gary laguerre am inter preta tion* No observ ation record ed. [email or web address] Not Available 05/2024 15:19:58 Result Notes None recorded. Problems Name Problem SNOMED Code Status Onset Date Resolution Date Notes Provider Name and Address Organization Details Recorded Time Venous thrombosis 828590252 Active Janet Joaquin MD [address], [address] , [facility] 4 10:43:19 Backache with radiating pain 367186746 Active Janet Joaquin MD [address], [address] , [facility] 4 12:05:54 Cramp in lower limb 301281514 Active [facility] 4 10:48:17 Fracture of lower leg 000513225 Active Janet Joaquin MD [address], [address] , [facility] 5 22:55:53 Acute sinusitis 86467942 Active [facility] 5 11:04:19 Renal colic 8281093 Active Janet Joaquin MD [address] [place] [address] , [facility] 5 21:59:32 Diverticuliti s 131637852 Active Janet Joaquin MD [address] [place] [address] , [facility] 5 21:59:32 Colitis 63732896 Active Janet Joaquin MD [address] [place] [address] , [facility] 5 16:56:26 Protein C deficiency disease 81309070 Active Janet Joaquin MD [address] [place] [address] , [facility] 4 14:55:35 Protein S deficiency disease 3392646 Active Janet Joaquin MD [address] [place] [address] , [facility] 4 14:55:55 History of deep vein thrombosis 439810290 Active Janet Joaquin MD [address] [place] [address] , [facility] 4 14:56:34 Gastroesophag eal reflux disease 358546242 Active Jante Joaquin MD [address], [address] [place] [address] , [facility] 5 22:18:30 Right upper quadrant pain 953131509 Active Not Available [facility] 3 03:01:10 Benign essential hypertension 9030047 Active Janet Joaquin MD [address], [address] [place] [address] , [facility] 5 16:56:26 Actinic keratosis 532660439 Active Not Available [facility] 3 03:01:10 Acute pharyngitis 438003585 Active Not Available [facility] 3 03:01:10 Disorder of urinary tract 80206860 Active Janet Joaquin MD [address] [place] [address] , [facility] 5 16:56:26 Depressive disorder 97463237 Active Janet Joaquin MD [address] [place] [address] , [facility] 3 21:19:13 Disorder of prostate 83718375 Active Not Available [facility] 3 03:01:10 Acute prostatitis 04901714 Active Not Available [facility] 3 03:01:10 Blood coagulation disorder 50027324 Active Janet Joaquin MD [address], [address] [place] [address] , [facility] 5 22:55:53 Disorder of lipid metabolism 848277097 Active Not Available [facility] 3 03:01:10 Neoplasm of uncertain behavior of skin 28369255 Active Not Available [facility] 3 03:01:10 Abdominal pain 84726643 Active Janet Joaquin MD [address] [place] [address] , [facility] 5 21:59:32 Gouty arthropathy 117066103 Active Janet Joaquin MD [address] [place] [address] , [facility] 6 18:37:57 Insomnia disorder related to known organic factor 11574987 Active Not Available [facility] 3 03:01:10 Hyperlipidemi a 82560163 Active Janet Joaquin MD [address], [address] [place] [address] , [facility] 5 22:55:53 Malaise and fatigue 816531163 Active [facility] 4 10:15:28 Benign prostatic hyperplasia 379201530 Active Janet Joaquin MD [address], [address] [place] [address] , [facility] 5 21:10:50 Anticoagulant adverse reaction 415207845 Active Not Available [facility] 3 03:01:10 History of gout 475620932 Active 2023 Janet Joaquin MD [address], [address] [place] [address] , [facility] 4 16:13:33 Chronic kidney disease stage 3 718743244 Active 2023 Janet Joaquin MD [address], [address] [place] [address] , [facility] 4 16:13:37 History of cholecystecto my 253663421 Active 2023 Janet Joaquin MD [address], [address] [place] [address] , [facility] 4 16:13:42 Problem Notes None recorded. Procedures Surgical History Date Name Laterality Status Provider Name and Address Organization Details Recorded Time 020 Suture/Staple removal completed Janet Joaquin MD [address], [address] [place] [address] [facility] 02/08/2020 23:40:28 018 Cataract Surgery completed Janet Joaquin MD [address], [address] [place] [address], [facility] 11/04/2018 17:00:30 015 Colonoscopy completed Janet Joaquin MD [address] [facility] 07/23/2014 10:11:18 013 Colonoscopy completed [facility] 06/19/2013 09:16:39 012 Excision and closure completed Janet Joaquin MD [address] [facility] 01/01/2012 19:35:20 012 cryotherapy surgery completed Janet Joaquin MD [address], [address] [place] [address] [facility] 11/24/2011 12:27:00 005 Orthopaedic Surgery completed Janet Joaquin MD [address], [address] [place] [address] [facility] 05/21/2011 21:27:10 004 Colonoscopy completed Janet Joaquin MD [address], [address] [place] [address] [facility] 05/21/2011 21:27:10 subtotal parathyroidectomy completed Janet Joaquin MD [address], [address] [place] [address] [facility] 01/10/2023 23:00:51 Imaging Results None recorded. Procedure Notes None recorded. Medical Equipment None Reported. Allergies No known drug allergies Medications Name Sig Start Date Stop Date Status Note LastModified by Organization Details LastModified Time ketorolac 15 mg/mL injection solution Inject 2 mL every 6 hours by intramus cular route. 2013 active Not Available Not Available Not Avzander lablashay cyclobenza mamie 10 mg tablet take 1 tablet by mouth twice a day if needed active Not Available Not Available No t Available amoxicilli n 500 mg capsule take 1 capsule by mouth three times a day active Not Available Not Available No t Available atorvastat in 40 mg tablet Take 0.5 tablets every day by oral route. 06/02 completed Not Available Not Available Not Available atorvastat in 80 mg tablet Take 1 tablet every day by oral route. active Not Available Not Available No t Available doxycyclin e hyclate 100 mg capsule TK 1 C PO BID FOR 14 DAYS 11/26 completed Not Available Not Available Not Available hydrocodon e 5 mg-acetami nophen 325 mg tablet TAKE 1 TABLET EVERY 6 HOURS NEEDED active Not Available Not Available No t Available Remeron 15 mg tablet Take 1 tablet every day by oral route in the evening for 90 days. 2011 active takes rarely for sleep Not Available Not Available Not Available lisinopril 20 mg tablet 2 po daily 11/23 completed Not Available Not Available Not Available metronidaz ole 500 mg tablet TAKE 1 TABLET BY MOUTH EVERY 8 HOURS FOR 10 DAYS 08/13 completed Not Available Not Available Not Available lidocaine HCl 2 % mucosal jelly BRING TO PROCEDUR E DIRECTED active Not Available Not Available No t Available amlodipine 5 mg tablet Take 1 tablet every day by oral route. active Not Available Not Available No t Available allopurino l 100 mg tablet Take 1 tablet every day by oral route. active Not Available Not Available No t Available ciprofloxa alex 500 mg tablet TAKE 1 TABLET BY MOUTH EVERY 12 HOURS 01/05 completed Not Available Not Available Not Available sulfametho xazole 800 mg-trimeth oprim 160 mg tablet Take 1 tablet every 12 hours by oral route for 7 days. 01/08 completed Not Available Not Available Not Available omeprazole 40 mg capsule,de layed release Take 1 capsule every day by oral route. active Not Available Not Available No t Available aspirin 81 mg tablet,del ayed release Take 1 tablet every day by oral route. 12/12 completed Not Available Not Available Not Available tramadol 50 mg tablet take 1 tablet by mouth every 8 hours if needed 12/24 completed Not Available Not Available Not Available ceftriaxon e 1 gram solution for injection Take 0.5 g by injectio n route. 11/06 completed Not Available Not Available Not Available prednisolo ne acetate 1 % eye drops,susp ension 12/12 completed Not Available Not Available Not Available terazosin 2 mg capsule Take 2 capsules every day by oral route. 06/01 completed Not Available Not Available Not Available tamsulosin 0.4 mg capsule Take 1 capsule every day by oral route. 08/13 completed Not Available Not Available Not Available ciprofloxa alex 0.3 % eye drops INSTILL 1 DROP INTO AFFECTED EYE(S) BY OPHTHALM IC ROUTE EVERY 2 HOURSWHI LE AWAKE FOR 2 DAYS THEN 1 DROP EVERY 4 HRS WHILE AWAKE FOR 5 DAYS 12/12 completed Not Available Not Available Not Available phenazopyr idine 100 mg tablet TAKE 1 TABLET BY MOUTH THREE TIMES A DAY NEEDED FOR PAIN 01/08 completed Not Available Not Available Not Available hydrocodon e 7.5 mg-acetami nophen 325 mg tablet TAKE 1 TABLET BY MOUTH EVERY 6 HOURS NEEDED FOR PAIN active Not Available Not Available No t Available cephalexin 500 mg capsule take 1 capsule by mouth every 6 hours for 10 days active Not Available Not Available No t Available lisinopril 10 mg tablet Take 1 tablet every day by oral route. 2011 active Not Available Not Available Not Avai lable polymyxin B sulfate 10,000 unit-trime thoprim 1 mg/mL eye drops 12/12 completed Not Available Not Available Not Available warfarin 5 mg tablet TAKE 1 TABLET DAILY 11/26 completed Not Available Not Available Not Available omeprazole 20 mg capsule,de layed release TAKE 1 CAPSULE DAILY 11/06 completed Not Available Not Available Not Available hydrocodon e 5 mg-acetami nophen 500 mg tablet BRING TO PROCEDUR E active Not Available Not Available No t Available pravastati n 20 mg tablet TAKE 1 TABLET DAILY IN THE EVENING 01/20 completed Not Available Not Available Not Available mupirocin 2 % topical ointment APPLY A SMALL AMOUNT TO THE AFFECTED AREA THREE TIMES A DAY 11/04 completed Not Available Not Available Not Available gabapentin 100 mg capsule TAKE 1 CAPSULE BY MOUTH 3 TIMES A DAY NEEDED active Not Available Not Available No t Available dexamethas one sodium phosphate 4 mg/mL injection solution Inject 1 mL by intramus cular route. 11/06 completed Not Available Not Available Not Available diazepam 10 mg tablet BRING TO PROCEDUR E active Not Available Not Available No t Available gentamicin 40 mg/mL injection solution Take 2 mL by injectio n route. 01/08 completed Not Available Not Available Not Available methylpred nisolone 4 mg tablets in a dose pack FOLLOW PACKAGE DIRECTIO NS active Not Available Not Available No t Available colchicine 0.6 mg tablet Take 1 tablet 3 times a day by oral route as needed. active Not Available Not Available No t Available ketorolac 60 mg/2 mL intramuscu lar solution Inject 1 mL every 6 hours by intramus cular route. 12/14 completed Not Available Not Available Not Available Naprosyn 500 mg tablet Take 1 tablet twice a day by oral route as needed. 11/26 completed only as needed Not Available Not Available Not Available oxybutynin chloride 5 mg tablet Take 1 tablet every day by oral route. active Not Available Not Available No t Available lisinopril 40 mg tablet Take 1 tablet every day by oral route. 06/01 completed Not Available Not Available Not Available fluoxetine 20 mg capsule TAKE 1 CAPSULE DAILY active Not Available Not Available No t Available finasterid e 5 mg tablet TAKE 1 TABLET DAILY active Not Available Not Available No t Available amoxicilli n 875 mg-potassi um clavulanat e 125 mg tablet TAKE 1 TABLET BY MOUTH EVERY 12 HOURS 11/06 completed Not Available Not Available Not Available enoxaparin 40 mg/0.4 mL subcutaneo us syringe Inject 0.4 mL every day by subcutan eous route. active Not Available Not Available No t Available nitrofuran toin monohydrat e/macrocry stals 100 mg capsule TAKE 1 CAPSULE BY MOUTH TWICE A DAY FOR 7 DAYS 01/08 completed Not Available Not Available Not Available chlorhexid ine gluconate 0.12 % mouthwash SWISH AND SPIT 1/2 OUNCE FOR 30 SECONDS THEN SPIT OUT. USE TWICE A DAY 11/23 completed as needed Not Available Not Available Not Available loratadine 07/23 completed Not Available Not Available Not Available cholecalci ferol (vitamin D3) 1000 units daily active Not Available Not Available No t Available Centrum Silver 1 po daily active Not Available Not Available No t Available melatonin 5 mg tablet Take 1 tablet every day by oral route. active Not Available Not Available No t Available Phosphasal 81.6 mg-10.8 mg-40.8 mg tablet active Not Available Not Available Not Available Eliquis 2.5 mg tablet Take 1 tablet twice a day by oral route. active Not Available Not Available No t Available Fluvirin ( PF) 45 mcg (15 mcg x3)/0.5 mL intramuscu lar syringe inject 0.5 millilit er intramus cularly active Not Available Not Available No t Available Afluria Quad (PF) 60 mcg (15 mcg x 4)/0.5 mL IM syringe inject 0.5 millilit er intramus cularly 12/12 completed Not Available Not Available Not Available Fluarix Quad (PF) 60 mcg (15 mcg x 4)/0.5 mL IM syringe inject 0.5 millilit ers intramus cularly 11/23 completed Not Available Not Available Not Available Vitals Date Recorded Body height Body mass index (BMI) Body weight Heart rate Oxygen saturation Oxygen saturation in Arterial blood by Pulse oximetry Body temperature Systolic And Diastolic Provider Name and Address Organization Details Last Updated DateTime 5 182.88 cm 34.6 kg/m2 153230. 45 g 81 /min 98 % 98 % 97.3 [degF] 134/87 mm[Hg] [facility] 5 16:18:59 Date Recorded Body height Body mass index (BMI) Body weight Heart rate Oxygen saturation Oxygen saturation in Arterial blood by Pulse oximetry Body temperature Systolic And Diastolic Provider Name and Address Organization Details Last Updated DateTime 3 182.88 cm 33.5 kg/m2 717412. 32 g 93 /min 96 % 96 % 97.7 [degF] 146/70 mm[Hg] [facility] 3 15:54:37 Date Recorded Body height Body mass index (BMI) Body weight Heart rate Oxygen saturation Oxygen saturation in Arterial blood by Pulse oximetry Body temperature Systolic And Diastolic Provider Name and Address Organization Details Last Updated DateTime 3 182.88 cm 34.3 kg/m2 579795. 87 g 68 /min 96 % 96 % 97.7 [degF] 129/92 mm[Hg] [facility] 3 10:09:30 Date Recorded Body height Body mass index (BMI) Body weight Heart rate Oxygen saturation Oxygen saturation in Arterial blood by Pulse oximetry Body temperature Systolic And Diastolic Provider Name and Address Organization Details Last Updated DateTime 4 182.88 cm 34.3 kg/m2 991000. 87 g 110 /min 97 % 97 % 97.9 [degF] 124/78 mm[Hg] [facility] 4 14:46:49 Date Recorded Body height Body mass index (BMI) Body weight Heart rate Oxygen saturation Oxygen saturation in Arterial blood by Pulse oximetry Body temperature Systolic And Diastolic Provider Name and Address Organization Details Last Updated DateTime 2 182.88 cm 34.6 kg/m2 318710. 45 g 110 /min 95 % 95 % 98.1 [degF] 143/88 mm[Hg] [facility] 2 16:08:35 Social History Question Answer Notes LastModified by Organizat ion Details LastModified Time Tobacco Smoking Status Never Smoker Not Available [facility] 01/23/2020 03:11:21 What Is Your Level Of Caffeine Consumption? Moderate Information not available 12/12/2021 What Type Of Diet Are You Following? REGULAR [id number] Information not available 01/23/2020 Education 2 Year College Information not available 11/24/2019 Live Alone Or With Others? With Others Information not available 05/21/2011 Marital Status Informatio n not available 05/21/2011 What Was The Date Of Your Most Recent Tobacco Screening? 01/21/2024 Information not available 01/21/2024 How Many Children Do You Have? 2 5 Biological Grandchildren And 1 Step [id number] Information not available 01/23/2020 What Is Your Relationship Status? [email or web address] Information not available 12/12/2021 Sex: Male Functional Status Question Answer Note LastModified by Organizat ion Details LastModified Time What is your level of alcohol consumption? 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 Occasional [id number] Information not available 01/23/2020 Mental Status None recorded. Family History Relationship Description Onset Age of this Age Resolved Age Notes LastModified by Organization Details LastModified Time Father Substance abuse suicid e from [facility] ke[facility] (previ ously record ed as Alcoho l/Subs tance Abuse) ralson Not available 12/14/2014 09:54:29 Paternal Grandfather Substance abuse suicid e (previ ously record ed as Alcoho l/Subs tance Abuse) son Not available 12/14/2014 09:54:29 Mother Hypertensive disorder previo usly record ed as Hypert ension ; she is 80 Not available 11/24/2019 11:23:41 Medical History Condition Response Coronary Artery Disease N Gout Y Kidney Stones Y Blood Diseases N Hyperthyroidism N COPD N Depression Y Hypothyroidism N Developmental or Behavioral Disorders N Eczema, Hives or other skin conditions N Anxiety Disorder N Muscle, Joint, or Bone Problems Y Vision or Eye Problems N Arthritis N Serious Illness or Injuries N Congenital Anomalies N Cancer N Stroke N Bladder or Kidney Problems N Hospital Admission other than N High Cholesterol Y Liver Disease N Fibromyalgia N Kidney Disease Y Heart Problems N Ear or Hearing Problems N ADD or ADHD N Thyroid Problems N Skin Problems N Anemia N Constipation N Diabetes N Bedwetting N Seizures/Epilepsy N Tuberculosis N Diverticulitis N Asthma N Allergies N GERD/Reflux Y Heart Disease N Pulmonary Embolism N Hypertension Y Osteoporosis N Chicken Pox N Immunizations Vaccine Type Date Status Note Provider Nam e and Address Organization Details Recorded Time Influenza, split virus, trivalent, PF 3 completed Not Available [facility] 04/15/2019 02:12:10 Influenza, split virus, trivalent, PF 4 completed Janet Joaquin MD [address] [address], [place], [place], [address] [place] [address], [place] - [facility] 01/07/2014 13:02:58 Influenza, recombinant, quadrivalent, PF 0 completed Not Available [facility] 11/24/2019 12:26:28 Influenza, recombinant, quadrivalent, PF 2 completed Janet Joaquin MD [address] [address], [place], [place], [address] [place] [address], [facility] - [facility] 12/13/2021 22:13:59 Pneumococcal conjugate PCV 13 5 completed Janet Joaquin MD [address] [address], [place], [place], [address] [place] [address] - [facility] 12/13/2014 19:20:05 Influenza, split virus, quadrivalent, preservative 5 completed Janet Joaquin MD [address] [address], [place], [place], [address] [place] [address] - [facility] 12/13/2014 19:20:05 Pneumococcal conjugate PCV20, polysaccharide [id number] conjugate, adjuvant, PF 3 completed Janet Joaquin MD [address] [address], [place], [place], [address] [place] [address] - [facility] 01/10/2023 22:51:12 pneumococcal polysaccharide PPV23 6 completed Not Available [facility] 04/29/2019 02:12:33 Influenza, split virus, quadrivalent, preservative 6 completed Not Available [facility] 04/29/2019 02:12:33 Influenza, high-dose, trivalent, PF 4 completed Janet Joaquin MD [address] [address], [place], [place], [address] [place] [address], [facility] 01/23/2024 14:37:58 tetanus toxoid, unspecified formulation 5 completed Janet Joaquin MD [address] [address], [place], [place], [address] [place] [address], [facility] 08/13/2016 11:09:39 zoster live 0 completed Janet Joaquin MD [address], [address] [place] [address], [facility] 08/13/2016 11:10:36 Influenza, split virus, quadrivalent, preservative 8 completed Janet Joaquin MD [address], [address] [place] [address], [facility] 02/21/2018 22:09:43 Influenza, split virus, quadrivalent, preservative 9 completed [facility] 12/15/2018 08:51:00 zoster recombinant 9 completed Janet Joaquin MD [address], [address] [place] [address], [facility] 11/24/2019 11:10:24 zoster recombinant 0 completed Janet Joaquin MD [address], [address] [place] [address] [facility] 11/24/2019 11:10:36 COVID-19, mRNA, LNP-S, PF, 100 mcg/0.5mL dose or 50 mcg/0.25mL dose 1 completed [facility] 11/26/2020 09:12:46 COVID-19, mRNA, LNP-S, PF, 100 mcg/0.5mL dose or 50 mcg/0.25mL dose 1 completed [facility] 11/26/2020 09:12:50 Tdap 2 completed [facility] 12/12/2021 09:43:19 COVID-19, mRNA, LNP-S, PF, 30 mcg/0.3 mL dose 2 completed Janet Joaquin MD [address] [place] [address], [address], [facility] 12/12/2021 10:01:06 influenza, unspecified formulation 3 completed [facility] 01/08/2023 10:17:11 Past Encounters Encounter ID Performer Location Encounter Start Date Encounter Closed Date Diagnosis/Indication Diagnosis SNOMED-CT Code Diagnosis ICD10 Code Diagnosis IMO Codes Diagnosis Note [id number] Josse Navas MD [facility] [address] [id number] 03/12/2011 09:21:44 03/15/2011 03:51:05 [id number] Janet Joaquin MD [address] [id number] 05/21/2011 09:11:18 05/22/2011 08:19:33 [id number] Janet Joaquin MD [address] [id number] 11/24/2011 10:47:51 11/24/2011 15:43:49 [id number] Janet Joaquin MD [facility] [address] [id number] 01/01/2012 13:32:17 01/07/2012 18:31:50 [id number] Josse Navas MD [facility] [address] [id number] 04/18/2012 10:16:34 04/18/2012 15:29:25 [id number] Janet Joaquin MD [facility] [address] [id number] 7 07/15/2012 09:23:38 07/15/2012 16:34:58 [id number] Janet Joaquin MD [facility] [address] [id number] 12/12/2012 09:07:50 12/12/2012 14:36:23 [id number] Janet Joaquin MD [facility] [address] [id number] 7 06/19/2013 10:02:46 06/19/2013 10:52:14 Benign essential hypertension 2179280 Gastroesop hageal reflux disease 090048042 Hyperlipidemia 07071193 Gouty arthropathy 968304937 Anticoagulant therapy 630680099 [id number] Janet Joaquin MD [facility] [address] [id number] 07/03/2013 10:59:57 07/03/2013 12:15:59 Backache with radiating pain 970079957 Benign ess ential hypertension 4809204 Anticoagulant therapy 995687445 [id number] Janet Joaquin MD [facility] [address] [id number] 07/23/2014 08:40:23 2014 08:35:59 Blood coagulation disorder 30235214 Anticoagulant therapy 905118094 Benign ess ential hypertension 4082203 Hyperlipidemia 90946116 Fracture of lower leg 623116289 [id number] Janet Joaquin MD [facility] [address] [id number] 12/14/2014 09:01:45 12/16/2014 18:02:08 Abdominal pain 92015589 Renal colic 3790597 Diverticulitis 124665144 [id number] Janet Joaquin MD [facility] [address] [id number] 12/12/2015 09:59:23 12/12/2015 12:01:51 Diverticulitis of sigmoid colon 317588889 K57.32 Anticoagulant therapy 18 2432237 Z79.01 Screening for malignant neoplasm of prostate 839547484 Z12.5 Hyperlipidemia 09780566 E78.5 History of gout 77346667 4 Z87.39 [id number] Janet Joaquin MD [facility] [address] [id number] 12/27/2015 10:15:11 12/27/2015 11:54:04 Urinary tract infectious disease 60414304 N39.0 Saad hematuria 85376548 5 R31.0 Diverticul itis of sigmoid colon 409831302 K57.32 [id number] Janet Joaquin MD [facility] [address] [place] [id number] 08/13/2016 09:29:11 08/21/2016 14:44:06 Adult health examination 932653948 Z00.01 Essential hypertension 63384169 I10 He probably needs additional BP medication and sees nephrologi st tomorrow Anticoagulant therapy 18 5407904 Z79.01 Body mass index 30+ - obesity 572194716 Z68.33 [id number] Janet Joaquin MD [facility] [address] [id number] 10/07/2017 09:50:00 10/11/2017 17:26:08 Adult health examination 883961436 Z00.01 Essential hypertension 11754967 I10 Abrasion o f skin of lower limb 584390672 S80.811A Hyperlipidemia 77987716 E78.5 Benign pro static hyperplasia 029315761 N40.0 Anticoagulant therapy 18 6264742 Z79.01 Body mass index 30+ - obesity 451443969 Z68.34 History of gout 95902767 4 Z87.39 [id number] Janet Joaquin MD [facility] [address] [id number] 11/04/2018 14:52:54 11/07/2018 07:49:23 Adult health examination 748419552 Z00.01 Essential hypertension 13880559 I10 Hyperlipidemia 33365482 E78.5 Benign pro static hyperplasia 813444306 N40.0 Anticoagulant therapy 18 7596991 Z79.01 Body mass index 30+ - obesity 340016821 Z68.36 History of gout 82158041 4 Z87.39 Gastroesop hageal reflux disease 086908069 K21.9 Chronic ki dney disease stage 3 457955145 N18.3 [id number] Janet Joaquin MD [facility] [address] [place] [id number] 7 06/05/2019 14:03:48 06/06/2019 08:13:39 Pain in right thumb 0264160773 178977 M79.644 Spontaneou s ecchymosis 391137077 R23.3 Long-term current use of anticoagulant 810862444 Z79.01 [id number] Janet Joaquin MD [facility] [address] [place] [id number] 7 11/24/2019 10:43:26 11/27/2019 09:44:17 Active or passive immunization 890031697 Z23 Adult heal th examination 412625441 Z00.01 Essential hypertension 85323322 I10 Hyperlipidemia 07542675 E78.5 Benign pro static hyperplasia 259168670 N40.0 Anticoagulant therapy 18 0874296 Z79.01 Body mass index 30+ - obesity 740124975 Z68.35 History of gout 78637834 4 Z87.39 Gastroesop hageal reflux disease 236217095 K21.9 Chronic ki dney disease stage 3 184395473 N18.3 [id number] Janet Joaquin MD [facility] [address] [id number] 01/26/2020 14:35:54 01/29/2020 09:48:00 Thrombophlebitis of superficial veins of lower extremity 28915340 I80.299 Long-term current use of anticoagulant 578909325 Z79.01 [id number] Janet Joaquin MD [facility] [address] [id number] 02/08/2020 15:15:10 02/09/2020 09:13:37 Laceration of finger 687245375 S61.210S [id number] Janet Joaquin MD [facility] [address] [id number] 03/24/2021 09:28:04 03/26/2021 18:46:11 Right upper quadrant pain 707870388 R10.11 Possible abdominal hernia but also recent severe ruq swelling, firmness and pain. Some lower abdominal/ pelvic discomfort off and on. Starting with an ultrasound as has only one functionin g kidney. [id number] Janet Joaquin MD [facility] [address] [place] [id number] 12/12/2021 09:25:04 12/15/2021 08:19:59 Administration of influenza vaccine 51627337 Z23 Adult heal th examination 687106963 Z00.01 Essential hypertension 61789112 I10 Hyperlipidemia 64095375 E78.5 Benign pro static hyperplasia 194366459 N40.0 Anticoagulant therapy 18 2543177 Z79.01 Body mass index 30+ - obesity 155843072 Z68.35 History of gout 98728137 4 Z87.39 Gastroesop hageal reflux disease 471395821 K21.9 Chronic ki dney disease stage 3 861422249 N18.30 [id number] Janet Joaquin MD [facility] [address] [id number] 01/30/2022 15:43:40 02/02/2022 08:42:29 Acute sinusitis 04881011 J01.90 [id number] Janet Joaquin MD [facility] [address] [id number] 11/06/2022 15:31:28 11/09/2022 09:36:39 Acute urinary tract infection 298471001 N39.0 [id number] Janet Joaquin MD [facility] [address] [id number] 01/08/2023 09:55:11 01/11/2023 09:43:01 Active or passive immunization 386106245 Z23 Adult heal th examination 770441242 Z00.01 Essential hypertension 25429957 I10 Hyperlipidemia 07763088 E78.5 Benign pro static hyperplasia 219740002 N40.0 Anticoagulant therapy 18 3246078 Z79.01 Body mass index 30+ - obesity 852548019 Z68.34 History of gout 39587794 4 Z87.39 Gastroesop hageal reflux disease 790703209 K21.9 Chronic ki dney disease stage 3 650168431 N18.30 Cholelithi asis without obstruction 16600913 K80.20 Right uppe r quadrant pain 388782799 R10.11 He gets intermitte nt and severe RUQ pains. He has only one functionin g kidney. Depression screening 171 704628 Z13.31 Depressive disorder 3548 9007 F32.5 [id number] Janet Joaquin MD [facility] [address] [id number] 01/21/2024 14:41:25 01/24/2024 09:57:53 Administration of influenza vaccine 51973596 Z23 Synovial cyst of knee 24 6936526 M71.21 Adult heal th examination 775264648 Z00.01 Essential hypertension 27782059 I10 Hyperlipidemia 58940402 E78.5 Benign pro static hyperplasia 162594090 N40.0 Anticoagulant therapy 18 4488797 Z79.01 Body mass index 30+ - obesity 767840581 Z68.34 History of gout 67125117 4 Z87.39 Gastroesop hageal reflux disease 054541194 K21.9 Chronic ki dney disease stage 3 109409305 N18.30 Depression screening 171 171417 Z13.31 Depressive disorder 3548 9007 F32.5 History of cholecystectomy 404976032 Z90.49 Protein S deficiency disease 6658008 D68.59 Protein C deficiency disease 09754838 D68.59 History of deep vein thrombosis 632893723 Z86.718 [id number] Janet Joaquin MD [facility] [address] [place] [id number] 06/01/2024 16:01:52 06/05/2024 09:24:35 Cervical radiculopathy 68033338 M54.12 History of placement of stent for coronary artery disease 855344115 Z95.5 Hyperlipidemia 11762970 E78.5 Medication review done by doctor 936218665 Z76.89 Health Concerns Section Related Observation LastModified by Organization Detai ls LastModified Time None Recorded Concern Status LastModified by Organization Details LastModified Time None Recorded Advance Directives Directive None Recorded Payers Insurance Date Sequence Insurance Name Policy Number Policy Cohen Covered Member ID Cohen Member ID Guarantor Name 06/29/2022 1 [facility] () Jem Salazar [id number] Jem Salazar 09/20/2017 1 [facility] eJm Salazar [id number] Jem Salazar 07/31/2024 1 [place] Jem Salazar [id number] Jem Salazar 06/01/2024 2 [employer] ( - MEDICARE SUPPLEMENT) Jem Salazar [id number] Jem Salazar Notes Date Note Type Note Provider Name and Address Organization Details Recorded Time 01/30/2022 text/html has had a flu vaccine and has tested negative for covid this week.Sxs with productive yellow cough and thick nasal drainage as well. Strong coughing. Taking tylenol sinus with partial relief. Ears feel clogged. Janet Joaquin MD [address], [address], [facility] 02/01/2022 22:31:57 11/06/2022 text/html they had driven wednesday and wednesday and he developed severe lower pelvic pain on 10/31 and after that he had severe frequency and small amounts of urination. This was miserable for hours. That night he felt terrible and went to ER and had a UTI with hematuria and was placed on nitrofurantoin and pyridium. He felt better a little bit by Wednesday but overall it is really not getting better and he has lost 16 pounds He is nauseous and had a neg covid test. He is chilling and staying under an electric blanket. He is able to urinate better however he is not better.We did find the culture from the ER in [place], [place]. He has Proteus Mirabilis sens to Cefopime, Cefrtazadine, Gentamicin, Levaquin, Tobramycin and Bactrim DS Janet Joaquin MD [address], [address], [facility] 11/08/2022 14:10:14 01/08/2023 text/html following at the ID and with nephrology there as well. He also found the parathyroid problem. Janet Joaquin MD [address], [address], [facility] 01/10/2023 23:42:23 01/21/2024 text/html will see the bench molder next week after a recent evaluation as he thinks there may be a renal circulation issue. Janet Joaquin MD [address], [address], [place] [facility] 01/24/2024 09:28:57 06/01/2024 text/html he has sharp pains in the left shoulder blade and numbness and tingling down the left arm and it will not go away. His strength is preserved. This has been going on for 3 weeks.He went to ER Mar 14 and at [facility] for low BP and high heart rates. He continued to have more shortness of breath with any activity. He then went to the ID where they started the work up end of February with a holter monitor. He had been having near syncopal episodes with hypotension and some sharp chest pains along with left arm numbness into the fingertips.So on Apr 26 he had an abnormal nuclear stress test and was considered stable being diagnosed with stable angina. He advises that he also had the holter from 30 days removed on Apr 26 and they noted ischemia. On 05/14 went to [facility] again with the chest pain and left upper ext numbness and had negative troponins so work up for NV remained negative. He finally had a cardiac cath 05/23 and ended up with a stent in the RCA. Also noted a 30 % blockage in LAD and a 50 % in the right coronary. We suspect they spread out the nuclear stress test and cardiac cath because of his reduced renal function.So he is a week out from the cath and stents. His only complaints had been some shortness of breath with any activity prior to the stents, the intermittent sharp chest pains and left arm numbness. His medications were adjusted and he is feeling much better except for the ongoing left scapular pains and arm numbness.[facility] to 80 mg and stopped lisinopril and terazosin. Plavix and aspirin were also added so he must be cautious to avoid any injuries on triple anti-coagulation.The persistent numbness into the left hand started 3 weeks ago and the left hand is just staying tingling all the time. He can only tolerate sleeping on the back but he is not a back sleeper. So he is miserable with this left arm. 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 He had the cath through the right radial artery and had no complications from that. Janet Joaquin MD [address] [facility], [address], [place], [address], [facility] 06/02/2024 09:01:55
--- OUTSIDE RECORDS SUMMARY | 2025-01-19 19:03 | XMS_ITS | Patient Health Record ---
[facility] [address] [facility] [address] [place] [id number] Care Team Providers Care General Manager Name Role Phone Anand Rogers Unavailable [phone] JonathonRancho Unavailable [phone] Allergies No Known Allergies Reason For Referral No Information Medications Medication SIG (Take, Route, Frequency, Duration) Notes Start Date End Date Status Lisinopril 40 MG 1 tab(s) orally once a day; Duration: 30 day(s) Active Pravastatin Sodium 20 MG 1 tab(s) orally once a day; Duration: 30 day(s) Active Allopurinol 100 MG 1 tab(s) orally once daily Active PriLOSEC OTC 20 MG 1 tab(s) orally once a day; Duration: 14 day(s) Active Eliquis 2.5 MG 1 tab(s) orally 2 ti mes a day; Duration: 30 day(s) Active PROzac 20 MG 1 cap(s) orally once a day; Duration: 30 day(s) Active Vitamin D3 50 MCG (1999 UT) 1 tab(s) ora lly once a day; Duration: 30 day(s) Active Melatonin 5 MG 1 cap(s) orally once a day (at bedtime) Active oxyBUTYnin Chloride 5 MG 1 tab(s) orally once a day Active Finasteride 5 MG 1 tab(s) orally once a day; Duration: 30 day(s) Active Terazosin HCl 2 MG 1 cap(s) orally once a day (at bedtime); Duration: 30 day(s) Active Immunizations Vaccine Route Administration Date Status Comme nts xFluzone (6mos and older)-trivalent Unknown 12/21/2020 Administered Tetanus Tdap-Adacel (over 7yrs) Unknown 07/31/2014 Admi nistered Shingrix Unknown 08/05/2009 Administered Prevnar (PCV13) Unknown 12/11/2014 Administered Hepatitis B (20 and more) Unknown 01/12/2018 Administer ed Hepatitis B (20 and more) Unknown 02/14/2018 Administer ed Hepatitis A (adult) Unknown 12/24/2016 Administered Hepatitis A (adult) Unknown 06/22/2017 Administered COVID 19 Moderna Unknown 06/09/2020 Administered Problems Problem Type SNOMED Code ICD Code Onset Dates Problem Status W/U Status Risk Notes Problem 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 Plan Of Treatment No Information Insurance Providers Payer Name Payer Address Payer Phone Subscriber Number Group Number Insured Name Patient Relationship to Insured Coverage Start Date Coverage End Date [place] [id number] ELY RESENDEZ Self - patient is the insured Medical (General) History Medical History History ICD Code Patient receives primary care at the [place] kidney disease Stage 3 - NO DYES depression hypertension DVT Right Leg, Lung spots Renal cyst, scarred R kidney Osteopenia diverticulosis BPH Duodenal ulcer Hematuria/ Cystoscopy Gout Bulging Lumbar Disc Protien C and S activity Protien S antigen Broken R ankle - Medial Malleous Broken L ankle - surgery repair Broken Colarbone Surgical History Surgery Date(Month/Year) Left Ankle Repair 2005 Colonoscopy 2004, 2013, 2014, 20 15 Para- Thyroid Surgery 2017 [place] and Gland Cyst Removal - bilate ral May 2017 R Cataract 2017 L Cataract Removal Mar 24, 2018 Pre-Cancer Lesion Removals Mar 2018 Hospitalization History Reason Date(Month/Year) Diverticulitis [place] 2015
--- OUTSIDE RECORDS SUMMARY | 2025-01-19 19:04 | XMS_ITS | Clinical Summary ---
Author Organization [facility] Address [address] [place] [address] Care Team Providers Care Area Development Consultant Name Role Phone Janet Joaquin MD Primary Care Provider + Allergies No known active allergies Medications terazosin (HYTRIN) 2 MG capsule Take 2 capsules by mouth Every Night. Active Cholecalciferol (Vitamin D3) 1000 units capsule Take 1,000 Units by mouth Daily. Active FLUoxetine (PROzac) 20 MG tablet Take 1 tablet by mouth Daily. Active Omeprazole 20 MG tablet delayed-release Take 40 mg by mouth Daily. Active apixaban (Eliquis) 2.5 MG tablet tablet Take 1 tablet by mouth Every 12 (Twelve) Hours. Active allopurinol (ZYLOPRIM) 100 MG tablet Take 1 tablet by mouth Daily. Active finasteride (PROSCAR) 5 MG tablet Take 1 tablet by mouth Daily. Active lisinopril (PRINIVIL,ZESTRIL) 40 MG tablet Take 1 tablet by mouth Daily. Active melatonin 5 MG tablet tablet Take 1 tablet by mouth Every Night. Active pravastatin (PRAVACHOL) 20 MG tablet Take 1 tablet by mouth Daily. Active colchicine 0.6 MG tabletIndications:E xacerbation of gout,Acute pain of right knee Take 1 tablet by mouth Daily. 6 tablet 1 Active oxybutynin XL (DITROPAN-XL) 5 MG 24 hr tablet Take 1 tablet by mouth Daily. Active amLODIPine (NORVASC) 5 MG tablet Take 1 tablet by mouth Every Night. Active multivitamin with minerals (MULTIVITAL PO) Take 1 tablet by mouth Daily. Active oxyCODONE-acetamino phen (PERCOCET) 5-325 MG per tabletIndications:S ymptomatic cholelithiasis Take 1 tablet by mouth Every 4 (Four) Hours As Needed (pain). 17 tablet 02/23/2023 3:43 PM EST 3 Active docusate sodium (COLACE) 250 MG capsule Take 1 capsule by mouth 2 (Two) Times a Day. 20 capsule 02/23/2023 3:43 PM EST 3 Active ondansetron (ZOFRAN) 4 MG tablet Take 1 tablet by mouth Every 8 (Eight) Hours As Needed for Nausea or Vomiting. 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 no 02/23/2023 Physical Signs of Abuse Present no 02/23/2023 Housing Stability Answer Date Recorded Current Living Arrangements Not on file 12/27 Potentially Unsafe Housing Conditions Not on linda e 01/07/2023 Family and Community Support Answer Gerry e Recorded Help with Day-to-Day Activities Not on file 01/07/2023 Lonely or Isolated Not on file 01/07/2023 Employment Answer Date Recorded Do you want help finding or keeping work or a marta b? Not on file 01/07/2023 Disabilities Answer Date Recorded Concentrating, Remembering, or Making Decisions Difficulty Not on file 01/07/2023 Doing Errands Independently Difficulty Not on fi le 01/07/2023 Education Answer Date Recorded Help with school or training? Not on file Preferred Language Czech 02/16/2023 Sex and Gender Information Value Date Recorded Sex Assigned at Not on file Legal Sex Male 12:41 PM EDT Gender Identity Not on file Sexual Orientation Not on file Last Filed Vital Signs Vital Sign Reading Time Taken Comments Blood Pressure 128/85 02/23/2023 5:15 PM EST Pulse 73 02/23/2023 5:15 PM EST Temperature 36.7 C (98 F) 02/23/2023 5:15 PM EST Respiratory Rate 16 02/23/2023 5:15 PM EST Oxygen Saturation 95% 02/23/2023 5:15 PM EST Inhaled Oxygen Concentration - - Weight 117 kg (257 lb) 02/23/2023 12:03 PM EST Height 180.3 cm (5' 11 ) 02/23/2023 12:03 PM EST Body Mass Index 35.84 02/23/2023 12:03 PM EST Plan of Treatment Health Maintenance Due Date Last Done Comments COLOGUARD 2002 COLON CANCER SCREENING 5 NERISSA Vickers SIGMOIDOSCOPY 2002 COLONOSCOPY 2002 COLORECTAL CANCER SCREENING 2002 CT COLONOGRAPHY 2002 FECAL OCCULT BLOOD TEST 2002 FIT Testing (1 year) 2002 ANNUAL PHYSICAL 08/15/2018 HEPATITIS C SCREENING 08/15/2018 INFLUENZA VACCINE 10/27/2024 12/25/2022, , 12/21/2020, Additional history exists COVID-19 Vaccine (2024- 6 season) 2024 11/12/2021, 06/09/2020, 05/27/2020, Additional history exists TDAP/TD VACCINES (2 - Td or Tdap) 12/10/2031 022 ZOSTER VACCINE Completed 07/10/2019, 100 09/2018, 07/27/2009 AAA SCREEN ONCE Completed 04/23/2020 Pneumococcal Vaccine 50+ Completed 023, 12/12/2015, 12/11/2014 Medical Devices Implanted Type Area Labor Relations Officer Device Identifier Shelf Expiration Date Model / Serial / Lot Clipapplr M/ Endo Ligaclip Rot 10mm /Waldo - [id number] Implanted:Qty : 1 on 02/23/2023 by North Guzman MD at [facility] Implant N/A: Abdomen [employer] [facility] [employer] [facility] [id number] / / Insurance [facility] SUP MEDICARE A & B [place] Directives Documents on File Type Date Recorded Patient Forming Acid Dumper Expl anation LIVING WILL - SCAN 02/24/2023 12:49 PM KAILEE RANKIN, 03/30/2018 POWER OF FORESTRY BIOLOGY SPECIALIST - SCAN 02/24/2023 12:47 PM POWER OF FORESTRY BIOLOGY SPECIALISTKAILEE, 03/30/2018 Care Teams Area Development Consultant Relationship Specialty Start Date End Date Janet Joaquin MD [address] [place] [id number] PCP - General Family Medicine 08/12/18
--- OUTSIDE RECORDS SUMMARY | 2025-01-19 19:04 | XMS_ITS | Clinical Summary ---
Author Organization [facility] Address [address] [place] [address] Care Team Providers Care Machine Preservative Filler Name Role Phone Janet Joaquin MD Primary Care Provider [phone] Family History Medical History Relation Name Comments Cardiac disorder Mother Cardiac disorder Other 1 Cardiac disorder Other 2 Other cancer Other 3 Relation Name Status Comments Mother Other 1 Other 2 Other 3 Social History Tobacco Use Types Packs/Day Years Used Date Smoking Tobacco: Never Alcohol Use Standard Drinks/Week Comments No 0 (1 standard drink = 0.6 oz pur e alcohol) Sex and Gender Information Value Date Recorded Sex Assigned at Not on file Legal Sex Male 6:02 PM EDT Gender Identity Not on file Sexual Orientation Not on file Last Filed Vital Signs Vital Sign Reading Time Taken Comments Blood Pressure - - Pulse - - Temperature - - Respiratory Rate - - Oxygen Saturation - - Inhaled Oxygen Concentration - - Weight 118 kg (260 lb 0.2 oz) 09/02/2015 9:11 AM EDT Height 182.9 cm (6') 09/02/2015 9:11 AM EDT Body Mass Index 35.26 09/02/2015 9:11 AM EDT Plan of Treatment Health Maintenance Due Date Last Done Comments [facility]-Depression Screening 1957 [facility]-Infant/Child/Adol SDOH Screenings 1957 [facility]- SDOH Screenings 07/26/1975 [facility]-Adult SDOH Screenings 07/26/1975 [facility]-DTaP,Tdap,and Td Vaccine s (1 - Tdap) 1976 CT Colonography 2002 Colonoscopy 2002 FIT-DNA 2002 FIT 2002 FOBT 2002 Sigmoidoscopy 2002 [facility]-Colorectal Cancer Screening 2002 [facility]-Pneumococcal Vaccine: 50 + Years (1 of 1 - PCV) 07/26/2007 [facility]-Zoster Vaccines (1 of 2) 07/26/2007 [id number] Vaccine (1 - 20 24-25 season) 2024 [facility]-Influenza Vaccine (#1) 2024 [facility]-RSV Vaccine: 60+ Years o r (1 - 1-dose 75+ series) 2032 HPV Vaccines Aged Out No longer eligi ble based on patient's age to complete this topic [facility]-HIB Vaccines Aged Out No longer e ligible based on patient's age to complete this topic [facility]-Hepatitis A Vaccines Aged Out No longer eligible based on patient's age to complete this topic [facility]-IPV Vaccines Aged Out No longer e ligible based on patient's age to complete this topic [facility]-Rotavirus Vaccines Aged Out No lo nger eligible based on patient's age to complete this topic Care Teams Machine Preservative Filler Relationship Specialty Start Date End Date Janet Joaquin MD [address] [place] [address] [address] [place] [phone] PCP - General 08/09/20
--- NOTE | 2025-01-19 19:10 | HMH.EDGENADL ---
Discharge Plan Disposition Chief Complaint: PAIN Prescriptions Prescriptions: No Action azithromycin [Zithromax Z-Drew] 250 mg tablet See Rx Instructions PO .COMPLEX Qty: 6 0RF Rx Instructions: For 250 mg dose pack: take 500 mg today (day 1), then 250 mg for 4 days (days 2-5) PO guaifenesin 600 mg tablet extended release 12hr 600 mg PO Q12H PRN (Reason: congestion) Qty: 20 0RF polymyxin B sulf-trimethoprim 10,000 unit- 1 mg/mL drops 1 drp ophthalmic (eye) Q3H 7 Days Qty: 10 0RF Rx Instructions: while awake; do not exceed 6 doses in 24 hours azithromycin 250 mg tablet See Rx Instructions PO .COMPLEX Qty: 6 0RF Rx Instructions: For 250 mg dose pack: take 500 mg today (day 1), then 250 mg for 4 days (days 2-5) PO fluticasone propionate [Flonase Allergy Relief] 50 mcg/actuation spray,suspension 2 spray intranasal DAILY Qty: 16 2RF Rx Instructions: administer into each nostril daily amlodipine 5 mg Tablet 5 mg PO DAILY cholecalciferol (vitamin D3) 25 mcg (1,000 unit) Tablet,Chewable 25 mcg PO DAILY atorvastatin 20 mg tablet 80 mg PO HS allopurinol 100 MG tablet 100 mg PO DAILY oxybutynin chloride 5 MG tablet extended release 24 hr 5 mg PO DAILY fluoxetine 20 MG capsule 20 mg PO DAILY finasteride 5 MG tablet 5 mg PO DAILY melatonin 5 MG capsule 5 mg PO HS apixaban 2.5 MG tablet 2.5 mg PO BID omeprazole magnesium 20 mg tablet,delayed release (DR/EC) 40 mg PO DAILY Referrals Follow up/Referrals: Janet Joaquin [Primary Care Provider, Medical] - See instructions Clinical Impressions Clinical Impression: Back pain, Chest pain Print Language Print Language: Sami Discharge ED Provider: Cristy Blood General Adult HPI General Chief complaint: PAIN Stated complaint: Bottom on SI joint; Having Spasms Time Seen by Provider: 01/19/25 18:49 Mode of Arrival: Ambulatory Source of Information: Patient Description of Symptoms (Recalled from ER Triage Doc. by RN): Pt presents for evaluation of back pain that started approx 1 week ago, but has become worse over the last couple of days. Pt arrives with ice applied to his back. History of Present Illness HPI narrative: Patient is a 69-year-old male with a past medical history of previous back surgeries as well as cardiac stents who presented to the emergency department with muscle spasms. Patient states that he has had back spasms in the past patient has been going to a chiropractor over the last week. Patient states that he has had no pain since Wednesday but then woke up today with worsening pain in his SI joint. Patient states that it is not radiating in nature but has caused him difficulties getting around. Patient has no pain in the midline of his back. Patient has not had any fevers. Patient has no cancer history. Patient has not had any trauma. Patient states that he is on blood thinners and took ibuprofen but did not have any other medications at home. States that he has been doing ice as well that has helped with his symptoms. Patient denies any numbness or weakness. Patient denies any fevers patient denies any weight loss. Related Data Home Medications ?Medication ?Instructions ?Recorded ?Confirmed allopurinol 100 mg tablet 100 mg PO DAILY gout 11/03/21 01/11/25 apixaban 2.5 mg tablet 2.5 mg PO BID Blood thinner 11/03/21 01/11/25 finasteride 5 mg tablet 5 mg PO DAILY prostate 11/03/21 01/11/25 fluoxetine 20 mg capsule 20 mg PO DAILY Depression 11/03/21 01/11/25 melatonin 5 mg capsule 5 mg PO HS sleep 11/03/21 01/11/25 oxybutynin chloride 5 mg 5 mg PO DAILY bladder 11/03/21 01/11/25 tablet,extended release 24 hr amlodipine 5 mg tablet 5 mg PO DAILY 03/11/24 01/11/25 cholecalciferol (vitamin D3) 25 25 mcg PO DAILY 03/11/24 01/11/25 mcg (1,000 unit) chewable tablet atorvastatin 20 mg tablet 80 mg PO HS 12/01/24 01/11/25 omeprazole magnesium 20 mg 40 mg PO DAILY GERD 12/01/24 01/11/25 tablet,delayed release Previous Rx's ?Medication ?Instructions ?Recorded azithromycin 250 mg tablet See Rx Instructions PO .COMPLEX #6 12/01/24 (Zithromax Z-Drew) tabs guaifenesin 600 mg tablet, 600 mg PO Q12H PRN congestion #20 12/01/24 extended release 12 hr tabs azithromycin 250 mg tablet See Rx Instructions PO .COMPLEX #6 01/11/25 tabs fluticasone propionate 50 2 spray intranasal DAILY #16 grams 01/11/25 mcg/actuation nasal spray,suspension (Flonase Allergy Relief) polymyxin B sulfate 10,000 1 drp ophthalmic (eye) Q3H 7 days 01/11/25 unit-trimethoprim 1 mg/mL eye drops #10 mL cyclobenzaprine 5 mg tablet 10 mg (2 x 5 mg) PO TID PRN muscle 01/19/25 spasm #30 tabs Allergies Allergy/AdvReac Type Severity Reaction Status Date / Time Iodinated Contrast Media Allergy Nausea Verified 01/11/25 08:55 [facility] Disclaimer: The information contained in this section may have been updated after the patient was seen, as this information can be updated by other users. Medical History (Updated 01/19/25 @ 23:57 by Victoriano Fletcher MD) Conjunctivitis Sinusitis Kidney stone DVT (deep venous thrombosis) Tonsillitis Detached retina Osteopenia BPH (benign prostatic hyperplasia) Depression Duodenal ulcer Diverticulosis Chronic kidney disease, stage 3 Gout Depression HLD (hyperlipidemia) HTN (hypertension), benign GERD (gastroesophageal reflux disease) Surgical History Hx of tonsillectomy Family History Other Alcoholism Cancer Coronary artery disease Social History Smoking Status: Never smoker alcohol intake: never current occupational status: employed and unemployed Travel in the last 8 weeks?: None Have you lived/traveled outside [place] in past 30 days?: No Contact w/someone who lives/traveled outside [place] past 30 days?: No Exposure to someone with infectious disease in past 14 days?: No Do you have a fever (greater than 100.4 F or 38 C)?: No Have you tested positive for COVID-19?: No Exposed to someone with COVID-19 in past 14 days?: No Do you have a sore throat?: No Do you have a cough?: No Do you have any weakness?: No Do you have any diarrhea?: No Are you experiencing any unusual bleeding?: No Do you have any muscle aches/pain?: No Do you have any abdominal pain?: No Are you experiencing loss of taste or smell?: No Other Medical History Have you received the Flu Vaccine for this season: No Have you received the Pneumonia Vaccine: No ROS Obtained: Yes All systems reviewed & no additional complaints except as documented and Yes Systems reviewed as appropriate & no additional complaints except as documented Physical Exam General General appearance: alert and in no apparent distress Head Head exam: atraumatic, normocephalic and normal inspection Eye Eye exam: Present normal appearance, PERRL and EOMI; Absent scleral icterus ENT ENT exam: Present normal exam and normal external ear exam Neck Neck exam: Present normal inspection and full ROM Chest Chest inspection: Present normal inspection and symmetric chest wall rise Respiratory Respiratory exam: Present normal lung sounds bilaterally; Absent respiratory distress or wheezes Cardiovascular Cardiovascular exam: Present regular rate, normal rhythm and normal heart sounds Abdominal Exam Abdominal exam: Present soft and distention; Absent tenderness, guarding or rebound Extremities Exam Extremities exam: Present normal inspection and full ROM Back Exam Back exam: Present normal inspection, full ROM and other (R SI joint tenderness, no midline spinal tenderness) Neurological Exam Neurological exam: Present alert, oriented X3, normal gait and reflexes normal; Absent motor sensory deficit Psychiatric Psychiatric exam: Present normal affect and normal mood Skin Skin exam: Present warm and dry Medical Decision Making Medical Records Medical records reviewed: Yes I reviewed the patient's medical records. Screening: Per USPSTF and CDC recommendations, given the prevalence of disease in our region, it is our hospital?s policy to screen for HIV and viral Hepatitis for all patients aged 18 and over and those with ongoing risk factors. Santos Inquiry Pt receiving controlled substance: No Vital Signs: 01/19/25 18:39 01/19/25 19:44 01/19/25 20:00 Temperature 98.6 F Temperature Source Temporal Artery Scan Pulse Rate 68 55 L Pulse Rate [Right] 75 Respiratory Rate 18 Blood Pressure 133/90 142/90 H Blood Pressure [Right Arm] 158/99 H Blood Pressure Mean [Right Arm] 118 02 Sat by Pulse Oximetry 100 93 L 93 L Oxygen Delivery Method Room Air 01/19/25 20:30 01/19/25 21:00 01/19/25 21:31 Temperature Temperature Source Pulse Rate 54 L 56 L 72 Pulse Rate [Right] Respiratory Rate 17 17 13 Blood Pressure 147/96 H 159/102 H 162/101 H Blood Pressure [Right Arm] Blood Pressure Mean [Right Arm] 02 Sat by Pulse Oximetry 93 L 98 98 Oxygen Delivery Method 01/19/25 22:00 01/19/25 22:55 Temperature Temperature Source Pulse Rate 60 59 L Pulse Rate [Right] Respiratory Rate 23 13 Blood Pressure 158/97 H 137/88 Blood Pressure [Right Arm] Blood Pressure Mean [Right Arm] 02 Sat by Pulse Oximetry 96 93 L Oxygen Delivery Method Lab Data Lab results reviewed: Yes I reviewed the patient's lab results. Lab Results 01/19/25 19:44: WBC 9.0, RBC 4.88, Hgb 14.7, Hct 44.7, MCV 91.6, MCH 30.1, MCHC 32.9, RDW 13.7, Plt Count 233, MPV 11.7 H, Neut % (Auto) 64.3, Lymph % (Auto) 26.8, [place] % (Auto) 5.7, Eos % (Auto) 2.1, Baso % (Auto) 0.7, Neut # (Auto) 5.8, Lymph # (Auto) 2.4, [place] # (Auto) 0.5, Eos # (Auto) 0.2, Baso # (Auto) 0.1, Sodium 137, Potassium 3.8, Chloride 103, Carbon Dioxide 27, Anion Gap 10.8, BUN 23 H, Creatinine 1.60 H, Estimated Creat Clear 33, Estimated GFR 43 L, Est GFR ( Amer) 52 L, Glucose 97, Calcium 8.6, Total Bilirubin 0.7, AST 49, ALT 29, Alkaline Phosphatase 90, Troponin I < 0.01, Total Protein 8.1, Albumin 4.5, Globulin 3.6 H, Albumin/Globulin Ratio 1.3, Lipase 109 01/19/25 23:15: Troponin I < 0.01 01/19/25 19:44 01/19/25 19:44 Orders (Tests/Meds): ED MEDICATIONS Generic Name Dose Route Start Last Admin Trade Name Freq PRN Reason Stop Dose Admin Diazepam 5 mg 01/19/25 19:20 01/19/25 19:32 Diazepam 10mg/2ml Syringe IV 02/18/25 19:19 5 mg NEEDED PRN Administration Seizures Discontinued Medications Generic Name Dose Route Start Last Admin Trade Name Freq PRN Reason Stop Dose Admin Acetaminophen 1,000 mg 01/19/25 19:20 01/19/25 19:33 Acetaminophen 500mg Tab PO 01/19/25 19:21 1,000 mg ONCE ONE Administration Aspirin 325 mg 01/19/25 20:49 01/19/25 21:07 Aspirin 325mg Tablet PO 01/19/25 20:50 325 mg ONCE ONE Administration Morphine Sulfate 4 mg 01/19/25 19:20 01/19/25 19:33 Morphine 2mg/Ml Syringe IV 01/19/25 19:21 4 mg ONCE ONE Administration Ondansetron HCl 4 mg 01/19/25 20:20 01/19/25 20:21 Ondansetron 4mg/2ml Vial IV 01/19/25 20:21 4 mg ONCE ONE Administration ORDERS Category Date Time Status CXR --portable [XR chest portable] Stat Exams 01/19/25 20:49 Completed CBC w/Auto Diff [Complete Blood Count Auto Diff] Stat Lab 01/19/25 19:44 Completed CMP [Comprehensive Metabolic Panel] Stat Lab 01/19/25 19:44 Completed Lipase Stat Lab 01/19/25 19:44 Completed Trop I [Troponin I] Stat Lab 01/19/25 19:44 Completed Troponin I Q3H Lab 01/19/25 23:15 Completed Troponin I Q3H Lab 01/20/25 02:49 Ordered Medical Decision Narrative: Patient is a 69-year-old gentleman with a past medical history of back spasms as well as previous cardiac stents who presented to the emergency department with back spasms. On arrival, patient was hemodynamically stable with unremarkable vital signs. Differential included but not limited to: Musculoskeletal spasm, fracture, dislocation, radiculopathy, amongst others. On exam, patient did have SI joint tenderness. Patient had no midline spinal tenderness. Patient had no neurodeficits. Patient was treated symptomatically with IV Valium, morphine as well as Tylenol. Patient is on Eliquis therefore he was not given ibuprofen. On reassessment, patient's pain was significantly improved. Did not feel that patient warranted CT imaging as patient did not have any new trauma patient did not have any midline spinal tenderness and patient had no other red flag symptoms. While here in the emergency department, patient developed some midline chest pressure. Patient does have a history of cardiac stents therefore EKG was obtained as well as troponins and chest x-ray and laboratory workup was completed. Patient's x-ray was reviewed and interpreted by myself and showed no acute intrathoracic pathology. EKG was reviewed and interpreted by myself and showed normal sinus rhythm without acute ST or T wave changes concerning for ischemia. CBC was reviewed and interpreted by myself: CBC showed no leukocytosis, hemoglobin was stable. Initial troponin was less than 0.01, second troponin was less than 0.01. Was given aspirin in the emergency department on reassessment, patient's pain was improved. At this time I felt the patient was stable and appropriate for discharge home. Heart score of 3 therefore patient was appropriate for outpatient management. Critical Care Critical Care Time Critical Care Time: No
[2025-01-19] MEDS: diazePAM 10MG/2ML SYRINGE 5 MG IV (19:32)
[2025-01-19] MEDS: ACETAMINOPHEN 500MG TAB 1000 MG PO (19:33)
[2025-01-19] MEDS: MORPHINE 2MG/ML SYRINGE 4 MG IV (19:33)
--- NOTE | 2025-01-19 20:13 | ECG_ITS ---
APPROVED REPORT Exam: Resting ECG HR:59 bpm ECG Measurements Heart Rate 59 AXES AR 209 P 53 QRSd 122 QRS 34 QT 447 T 29 QTc 446 Conclusion Sinus bradycardia without acute ST or T wave changes concerning for ischemia Electronically signed by : Cristy Blood, 01/20/2025 00:40:52
--- NOTE | 2025-01-19 20:18 | PC.NURSE ---
Family comes to this RN and reports pt experiencing mid sternal chest pain/ pressure as well as nausea. EKG obtained and verbal order for katherine.
[2025-01-19] MEDS: ONDANSETRON 4MG/2ML VIAL 4 MG IV (20:21)
--- NOTE | 2025-01-19 20:49 | XR_ITS ---
PROCEDURE INFORMATION: Exam: XR Chest Exam date and time: 01/19/2025 8:58 PM Age: 69 years old Clinical indication: Pain; Chest pressure; Additional info: Chest pain TECHNIQUE: Imaging protocol: Radiologic exam of the chest. Views: 1 view. Total images: 1 COMPARISON: CT ANGIO CHEST 07/15/2022 12:44 PM FINDINGS: Lungs: Poor lung expansion with bibasilar crowding. No acute infiltrate, airspace consolidation or vascular congestion. No pulmonary edema. Pleural spaces: Unremarkable. No pleural effusion. No pneumothorax. Heart/Mediastinum: Unremarkable. No cardiomegaly. No mediastinal widening or hilar enlargement. Bones/joints: Unremarkable. Other findings: Lordotic position. IMPRESSION: Poor lung expansion with bibasilar crowding.
[2025-01-19 21:03] LABS: Hematocrit 44.7 % (42.0-52.0); Hemoglobin 14.7 g/dL (14.1-18.0); Immature Granulocytes % 0.4 %; Mean Corpuscular HGB Conc 32.9 g/dL (31.8-35.4); Mean Corpuscular Hemoglobin 30.1 pg (27.0-31.2); Mean Corpuscular Volume 91.6 fl (80-94); Nucleated Red Blood Cells % 0 %; Platelet Count 233 K/mm3 (142-424); Red Blood Count 4.88 M/mm3 (4.60-6.20); Red Cell Distribution Width-SD 46.2 fL; White Blood Count 9.0 K/mm3 (4.8-10.8)
[2025-01-19 21:06] LABS: Albumin Level 4.5 g/dl (3.5-5.0); Chloride 103 mmol/L (98-107); Potassium 3.8 mmoL/L (3.5-5.1); Sodium 137 mmol/L (136-145)
[2025-01-19] MEDS: ASPIRIN 325MG TABLET 325 MG PO (21:07)
[2025-01-19 21:08] LABS: Alanine Aminotransferase 29 U/L (12-78); Aspartate Amino Transferase 49 U/L (17-59); Blood Urea Nitrogen 23 mg/dl (9-20); Creatinine Clearance Estimated 33 mL/min (50-200); Creatinine,Serum 1.60 mg/dl (0.66-1.25); Estimated Glomerular Filt Rate 43 ml/min (>60); GFR (African American) 52 ML/MIN (>60)
[2025-01-19 21:09] LABS: Albumin/Globulin Ratio 1.3 (1.1-1.8); Alkaline Phosphatase 90 U/L (38-126); Anion Gap 10.8 mEq/L (5-15); Bilirubin,Total 0.7 mg/dl (0.2-1.3); Calcium 8.6 mg/dl (8.4-10.2); Carbon Dioxide 27 mmol/L (22.0-30.0); Globulin 3.6 g/dL (1.3-3.2); Glucose 97 mg/dl (74-100); Lipase 109 U/L (23-300); Total Protein,Serum 8.1 g/dl (6.3-8.2)
[2025-01-19 21:25] LABS: Troponin I < 0.01 ng/ml (0.00-0.034)
[2025-01-19 23:50] LABS: Troponin I < 0.01 ng/ml (0.00-0.034)
[2025-01-20 00:01] VITALS: BP 135/85; PULSE 61; RESP 20; TEMP 37; O2SAT 97
== END 2025-01-20 00:06 | disposition home or self-care (01) ==
PROVIDERS: Emergency Provider Student in an Organized Health Care Education/Training Program; PCP Family Medicine
DX: R07.9 Chest pain, unspecified (principal); M62.830 Muscle spasm of back; I10 Essential (primary) hypertension; E78.5 Hyperlipidemia, unspecified; Z86.79 Personal history of other diseases of the circulatory system; Z95.5 Presence of coronary angioplasty implant and graft; Z86.718 Personal history of other venous thrombosis and embolism; Z79.01 Long term (current) use of anticoagulants
CPT/HCPCS: 71045; 80053; 83690; 84484; 85025; 93005; 96365; 96366; 96375; 99284; J2270; J2405; J3360